=== PATIENT | female | born 1980 | race Caucasian/White ===

== ENCOUNTER → 2018-08-13 17:03 | Outpatient (CLI) | payer MEDICAID, SELFPAY ==
[2018-08-13 18:45] LABS: Amphetamine/Metha Screen,Urine Negative ng/mL (<1000); Barbiturates Screen,Urine Negative ng/mL (<200); Benzodiazepines Screen,Urine Negative ng/mL (<200); Cannabinoid Screen,Urine Negative ng/mL (<50); Cocaine Screen,Urine Negative ng/mL (<300); Methadone Screen,Urine Negative ng/mL (<300); Opiate Screen,Urine Negative ng/mL (<300); Phencyclidine Screen,Urine Negative ng/mL (<25)
== END ==
PROVIDERS: Visit Provider Emergency Medicine
DX: Z79.899 Other long term (current) drug therapy (principal)
CPT/HCPCS: 80305

== ENCOUNTER → 2018-09-01 14:01 | Outpatient (CLI) | payer MEDICAID, SELFPAY ==
[2018-09-01 14:54] LABS: Amphetamine/Metha Screen,Urine Negative ng/mL (<1000); Barbiturates Screen,Urine Negative ng/mL (<200); Benzodiazepines Screen,Urine Positive ng/mL (<200); Cannabinoid Screen,Urine Negative ng/mL (<50); Cocaine Screen,Urine Negative ng/mL (<300); Methadone Screen,Urine Negative ng/mL (<300); Opiate Screen,Urine Positive ng/mL (<300); Phencyclidine Screen,Urine Negative ng/mL (<25)
== END ==
PROVIDERS: Visit Provider Emergency Medicine
DX: Z79.899 Other long term (current) drug therapy (principal)
CPT/HCPCS: 80305

== ENCOUNTER → 2018-09-29 13:55 | Outpatient (CLI) | payer MEDICAID, SELFPAY ==
[2018-09-29 14:31] LABS: Basophils # 0.1 K/mm3 (0-0.2); Basophils % 0.5 % (0.1-2.0); Eosinophils # 0.2 K/mm3 (0.0-0.4); Eosinophils % 1.5 % (0.1-12.0); Hematocrit 41.8 % (37.0-47.0); Hemoglobin 12.9 g/dL (12.2-16.2); Lymphocytes # 2.8 K/mm3 (0.7-4.5); Lymphocytes % 24.9 % (10-50); Mean Corpuscular HGB Conc 30.8 g/dL (31.8-35.4); Mean Corpuscular Hemoglobin 24.6 pg (27.0-31.2); Mean Corpuscular Volume 79.7 fl (81-99); Monocytes # 0.5 K/mm3 (0.1-1.0); Monocytes % 4.7 % (1.7-9.3); Neutrophils # 7.7 K/mm3 (1.8-7.8); Neutrophils % 68.5 % (37.0-80.0); Platelet Count 383 K/mm3 (142-424); Red Blood Count 5.24 M/mm3 (4.20-5.40); Red Cell Distribution Width 15.2 % (11.5-17.5); White Blood Count 11.2 K/mm3 (4.8-10.8)
[2018-09-29 14:41] LABS: Alanine Aminotransferase 112 U/L (12-78); Albumin Level 3.6 gm/dL (3.4-5.0); Albumin/Globulin Ratio 0.9 (1.1-1.8); Alkaline Phosphatase 135 U/L (46-116); Anion Gap 10.2 mEq/L (5-15); Aspartate Amino Transferase 96 U/L (15-37); Bilirubin,Total 0.4 mg/dL (0.2-1.0); Blood Urea Nitrogen 6 mg/dL (7-18); Calcium 9.7 mg/dL (8.5-10.1); Carbon Dioxide 36 mmol/L (21.0-32.0); Chloride 96 mmol/L (98-107); Chol/HDL Ratio 7.2 (1-3.5); Cholesterol 246 mg/dL (140-200); Creatinine,Serum 0.71 mg/dL (0.55-1.02); Estimated Glomerular Filt Rate 93 ml/min (>60); Free T4 (Free Thyroxine) 1.01 ng/dl (0.76-1.46); GFR (African American) 112 ML/MIN (>60); Glucose 132 mg/dL (74-106); HDL Cholesterol 34 mg/dL (29-89); LDL Cholesterol 146 mg/dL (0-130); Potassium 3.2 mmoL/L (3.5-5.1); Sodium 139 mmol/L (136-145); Thyroid Stimulating Hormone 3.26 uIU/ml (0.358-3.740); Total Protein,Serum 7.6 gm/dL (6.4-8.2); Triglycerides 330 mg/dL (30-200); VLDL Cholesterol 66 mg/dL (0-40)
[2018-09-29 15:25] LABS: Amphetamine/Metha Screen,Urine Negative ng/mL (<1000); Barbiturates Screen,Urine Negative ng/mL (<200); Benzodiazepines Screen,Urine Positive ng/mL (<200); Cannabinoid Screen,Urine Negative ng/mL (<50); Cocaine Screen,Urine Negative ng/mL (<300); Methadone Screen,Urine Negative ng/mL (<300); Opiate Screen,Urine Positive ng/mL (<300); Phencyclidine Screen,Urine Negative ng/mL (<25)
[2018-09-30 08:23] LABS: Vitamin B12 427 pg/mL (232-1245)
== END ==
PROVIDERS: Visit Provider Emergency Medicine
DX: Z79.899 Other long term (current) drug therapy (principal); R53.83 Other fatigue
CPT/HCPCS: 80053; 80061; 80305; 82607; 84439; 84443; 85025

== ENCOUNTER → 2018-10-27 09:48 | Outpatient (CLI) | payer MEDICAID, SELFPAY ==
[2018-10-27 10:41] LABS: Hemoglobin A1C 6.8 % (0.0-7.0)
[2018-10-27 11:51] LABS: Anion Gap 12.8 mEq/L (5-15); Blood Urea Nitrogen 7 mg/dL (7-18); Calcium 9.6 mg/dL (8.5-10.1); Carbon Dioxide 30 mmol/L (21.0-32.0); Chloride 101 mmol/L (98-107); Creatinine,Serum 0.68 mg/dL (0.55-1.02); Estimated Glomerular Filt Rate 97 ml/min (>60); GFR (African American) 118 ML/MIN (>60); Glucose 101 mg/dL (74-106); Sodium 141 mmol/L (136-145)
[2018-10-27 11:54] LABS: Potassium 2.8 mmoL/L (3.5-5.1)
[2018-10-28 07:18] LABS: Hep A Ab, IgM Negative (Negative); Hepatitis B Core Antibody IgM Negative (Negative); Hepatitis B Surface Antigen Negative (Negative)
[2018-10-29 09:44] LABS: Hepatitis B Surf Ab Quant <3.1 mIU/mL (Immunity>9.9); Hepatitis C Antibody <0.1 s/co ratio (0.0-0.9)
== END ==
PROVIDERS: PCP Emergency Medicine; Visit Provider Physician Assistant
DX: E87.6 Hypokalemia (principal); R73.9 Hyperglycemia, unspecified; R94.5 Abnormal results of liver function studies
CPT/HCPCS: 36415; 80048; 80074; 83036; 86706

== ENCOUNTER → 2018-10-27 13:39 | Outpatient (CLI) | payer MEDICAID, SELFPAY ==
[2018-10-27 16:52] LABS: Amphetamine/Metha Screen,Urine Negative ng/mL (<1000); Barbiturates Screen,Urine Negative ng/mL (<200); Benzodiazepines Screen,Urine Negative ng/mL (<200); Cannabinoid Screen,Urine Negative ng/mL (<50); Cocaine Screen,Urine Negative ng/mL (<300); Methadone Screen,Urine Negative ng/mL (<300); Opiate Screen,Urine Positive ng/mL (<300); Phencyclidine Screen,Urine Negative ng/mL (<25)
[2018-11-05 17:12] LABS: Alprazolam Negative (Cutoff=100); Benzodiazepines Negative ng/mL (Cutoff=100); Clonazepam Negative (Cutoff=100); Flurazepam Negative (Cutoff=100); Lorazepam Negative (Cutoff=100); Midazolam Negative (Cutoff=100); Oxycodone (GC/MS) 1223 ng/mL (Cutoff=100); Oxymorphone (GC/MS) 2485 ng/mL (Cutoff=100); Temazepam Negative (Cutoff=100); Triazolam Negative (Cutoff=100)
[2018-11-06 22:24] LABS: Opiates Negative (Cutoff=100)
== END ==
PROVIDERS: Visit Provider Emergency Medicine
DX: Z79.891 Long term (current) use of opiate analgesic (principal)
CPT/HCPCS: 80305; 80346; 80361; 80365; G0480

== ENCOUNTER → 2018-11-26 17:36 | Outpatient (CLI) | payer MEDICAID, SELFPAY ==
[2018-11-26 18:13] LABS: Amphetamine/Metha Screen,Urine Negative ng/mL (<1000); Barbiturates Screen,Urine Negative ng/mL (<200); Benzodiazepines Screen,Urine Negative ng/mL (<200); Cannabinoid Screen,Urine Negative ng/mL (<50); Cocaine Screen,Urine Negative ng/mL (<300); Methadone Screen,Urine Negative ng/mL (<300); Opiate Screen,Urine Negative ng/mL (<300); Phencyclidine Screen,Urine Negative ng/mL (<25)
[2018-12-08 16:44] LABS: Gabapentin,Urine 56.6 ug/mL (.)
[2018-12-10 10:02] LABS: Alprazolam Negative (Cutoff=100); Benzodiazepines Negative ng/mL (Cutoff=100); Clonazepam Negative (Cutoff=100); Flurazepam Negative (Cutoff=100); Lorazepam Negative (Cutoff=100); Midazolam Negative (Cutoff=100); Oxycodone (GC/MS) 131 ng/mL (Cutoff=100); Oxymorphone (GC/MS) 199 ng/mL (Cutoff=100); Temazepam Negative (Cutoff=100); Triazolam Negative (Cutoff=100)
[2018-12-10 17:10] LABS: Opiates Negative (Cutoff=100)
== END ==
PROVIDERS: Visit Provider Emergency Medicine
DX: M54.16 Radiculopathy, lumbar region (principal)
CPT/HCPCS: 80305; 80307; 80346; 80361; 80365; G0480

== ENCOUNTER → 2019-01-24 08:28 | Outpatient (CLI) | payer MEDICAID, SELFPAY ==
--- NOTE | 2019-01-24 08:32 | XR_ITS ---
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 The lungs are clear without infiltrates, suspicious nodules, or pleural effusions. No evidence of active tuberculosis. No acute bony abnormalities. IMPRESSION: Negative chest Dictated by: Stalin Warren MD 01/24/2019 09:08 Electronically signed by Stalin Warren MD in [place] 01/24/2019 09:08
[2019-01-24 20:05] LABS: Amphetamine/Metha Screen,Urine Negative ng/mL (<1000); Barbiturates Screen,Urine Negative ng/mL (<200); Benzodiazepines Screen,Urine Negative ng/mL (<200); Cannabinoid Screen,Urine Negative ng/mL (<50); Cocaine Screen,Urine Negative ng/mL (<300); Methadone Screen,Urine Negative ng/mL (<300); Opiate Screen,Urine Negative ng/mL (<300); Phencyclidine Screen,Urine Negative ng/mL (<25)
[2019-01-31 19:08] LABS: Alprazolam Negative (Cutoff=100); Benzodiazepines Negative ng/mL (Cutoff=100); Clonazepam Negative (Cutoff=100); Flurazepam Negative (Cutoff=100); Lorazepam Negative (Cutoff=100); Midazolam Negative (Cutoff=100); Oxycodone Positive (.); Oxymorphone Positive (.); Temazepam Negative (Cutoff=100); Triazolam Negative (Cutoff=100)
[2019-02-01 06:14] LABS: Oxycodone Confirm 198 ng/mL (Cutoff=100); Oxymorphone Confirm 187 ng/mL (Cutoff=100)
== END ==
PROVIDERS: PCP Emergency Medicine; Visit Provider Emergency Medicine
DX: Z79.899 Other long term (current) drug therapy (principal); Z92.89 Personal history of other medical treatment
CPT/HCPCS: 71046; 80305; 80346; 80365

== ENCOUNTER → 2019-01-24 14:07 | Outpatient (CLI) | payer MEDICAID, SELFPAY | PROVIDERS: Visit Provider Emergency Medicine | DX: M54.16 Radiculopathy, lumbar region (principal) | CPT/HCPCS: 80305 ==

== ENCOUNTER → 2019-02-08 08:40 | Outpatient (CLI) | payer MEDICAID, SELFPAY ==
--- NOTE | 2019-02-08 08:42 | MM_ITS ---
PROCEDURE: MM DIG SCREENING MAMM BI W/CAD CLINICAL INDICATION: family hx of breast cancer There is a history of breast cancer patient's mother, maternal aunts and maternal great grandmother. COMPARISON: None, this is baseline examination TECHNIQUE: Standard CC and MLO images were obtained. R2 CAD reviewed. FINDINGS: Mild diffuse fibroglandular densities are seen throughout both breast and the findings of bilateral and symmetrical. There is minimal or borderline ductal hyperplasia bilaterally. There is no suspicious lesion and no suspicious microcalcifications. IMPRESSION: Fibrofatty parenchyma with no suspicious lesions seen BI-RAD Category: 1 Negative FOLLOW-UP: 1YR 1 Year Follow-up (A letter has been sent to the patient regarding results of the study.) Dictated by: Dr. Kane Prince MD 02/11/2019 07:[address] Kane Prince MD in [place] 02/11/2019 07:56
== END ==
PROVIDERS: PCP Emergency Medicine; Visit Provider Emergency Medicine
DX: Z12.31 Encounter for screening mammogram for malignant neoplasm of breast (principal); Z80.3 Family history of malignant neoplasm of breast
CPT/HCPCS: 77067

== ENCOUNTER → 2019-02-10 07:46 | Outpatient (CLI) | payer MEDICAID, SELFPAY ==
--- NOTE | 2019-02-10 07:50 | MR_ITS ---
PROCEDURE: MR LUMBAR SPINE WO CON CLINICAL INDICATION: back pain Low back pain with bilateral leg numbness and tingling right worse than left COMPARISON: No exams were available for comparison TECHNIQUE: Standard multiplanar multiecho sequences are performed without contrast. 3-D MIP and myelographic images are also rendered and reviewed FINDINGS: There is normal alignment. The spinal cord ends at the L1 level. L2-L3: Degenerate disc disease with bulging disc and a small left paracentral disc protrusion with minimal inferior extrusion. There is mild bilateral lateral recess and foraminal narrowing. L3-L4: Bulging disc with broad-based left paracentral and foraminal disc protrusion versus asymmetric disc bulge left with left lateral recess and foraminal narrowing. There is some mild impingement upon the left L4 nerve root. L4-5: Mild degenerative disc disease with mild bulging disc with facet and ligamentum hypertrophy with mild bilateral foraminal narrowing. L5-S1: Minimal bulging disc. IMPRESSION: 1. L2-L3: Degenerative disc disease with bulging disc and a small left paracentral disc protrusion with minimal inferior extrusion. There is mild bilateral lateral recess and foraminal narrowing. 2. L3-L4: Bulging disc with broad-based left paracentral and foraminal disc protrusion versus asymmetric disc bulge left with left lateral recess and foraminal narrowing. There is some mild impingement upon the left L4 nerve root. 3. L4-5: Mild degenerative disc disease with mild bulging disc with facet and ligamentum hypertrophy with mild bilateral foraminal narrowing Dictated by: Stalin Warren MD 02/11/2019 09:10 Electronically signed by Stalin Warren MD in [place] 02/11/2019 09:10
== END ==
PROVIDERS: PCP Emergency Medicine; Visit Provider Emergency Medicine
DX: M54.16 Radiculopathy, lumbar region (principal)
CPT/HCPCS: 72148; 76376

== ENCOUNTER → 2019-02-14 15:12 | Outpatient (CLI) | payer MEDICAID, SELFPAY ==
[2019-02-14 19:13] LABS: Amphetamine/Metha Screen,Urine Negative ng/mL (<1000); Barbiturates Screen,Urine Negative ng/mL (<200); Benzodiazepines Screen,Urine Negative ng/mL (<200); Cannabinoid Screen,Urine Negative ng/mL (<50); Cocaine Screen,Urine Negative ng/mL (<300); Methadone Screen,Urine Negative ng/mL (<300); Opiate Screen,Urine Positive ng/mL (<300); Phencyclidine Screen,Urine Negative ng/mL (<25)
[2019-02-25 06:11] LABS: Alprazolam Negative (Cutoff=100); Benzodiazepines Negative ng/mL (Cutoff=100); Clonazepam Negative (Cutoff=100); Flurazepam Negative (Cutoff=100); Lorazepam Negative (Cutoff=100); Midazolam Negative (Cutoff=100); Oxycodone Positive (.); Oxymorphone Positive (.); Temazepam Negative (Cutoff=100); Triazolam Negative (Cutoff=100)
[2019-02-25 16:29] LABS: Oxycodone Confirm 2630 ng/mL (Cutoff=100); Oxymorphone Confirm 2676 ng/mL (Cutoff=100)
== END ==
PROVIDERS: Visit Provider Emergency Medicine
DX: Z79.899 Other long term (current) drug therapy (principal)
CPT/HCPCS: 80305; 80346; 80365

== ENCOUNTER → 2019-04-11 13:39 | Outpatient (CLI) | payer MEDICAID, SELFPAY ==
[2019-04-11 19:46] LABS: Amphetamine/Metha Screen,Urine Negative ng/mL (<1000); Barbiturates Screen,Urine Negative ng/mL (<200); Benzodiazepines Screen,Urine Negative ng/mL (<200); Cannabinoid Screen,Urine Negative ng/mL (<50); Cocaine Screen,Urine Negative ng/mL (<300); Methadone Screen,Urine Negative ng/mL (<300); Opiate Screen,Urine Negative ng/mL (<300); Phencyclidine Screen,Urine Negative ng/mL (<25)
[2019-04-17 22:14] LABS: Alprazolam Negative (Cutoff=100); Benzodiazepines Negative ng/mL (Cutoff=100); Clonazepam Negative (Cutoff=100); Flurazepam Negative (Cutoff=100); Lorazepam Negative (Cutoff=100); Midazolam Negative (Cutoff=100); Temazepam Negative (Cutoff=100); Triazolam Negative (Cutoff=100)
[2019-04-18 17:09] LABS: Opiates Negative (Cutoff=100)
== END ==
PROVIDERS: Visit Provider Emergency Medicine
DX: Z79.899 Other long term (current) drug therapy (principal)
CPT/HCPCS: 80305; 80346; 80361; 80365; G0480

== ENCOUNTER → 2019-07-13 15:06 | Outpatient (CLI) | payer MEDICAID, SELFPAY ==
[2019-07-13 17:27] LABS: Alanine Aminotransferase 14 U/L (12-78); Albumin Level 4.7 g/dl (3.5-5.0); Albumin/Globulin Ratio 1.7 (1.1-1.8); Alkaline Phosphatase 108 U/L (38-126); Aspartate Amino Transferase 24 U/L (14-36); Blood Urea Nitrogen 10 mg/dl (7-17); Calcium 10.1 mg/dl (8.4-10.2); Carbon Dioxide 30 mmol/L (22.0-30.0); Chloride 103 mmol/L (98-107); Chol/HDL Ratio 5.1 (1-3.5); Cholesterol 178 mg/dl (140-200); Estimated Glomerular Filt Rate 112 ml/min (>60); GFR (African American) 135 ML/MIN (>60); Globulin 2.8 g/dL (1.3-3.2); Glucose 93 mg/dl (74-100); HDL Cholesterol 35 mg/dl (40-60); Sodium 138 mmol/L (136-145); Total Protein,Serum 7.5 g/dl (6.3-8.2); Triglycerides 269 mg/dl (30-150); VLDL Cholesterol 54 mg/dL (0-40)
[2019-07-13 17:28] LABS: Basophils # 0.1 K/mm3 (0-0.2); Basophils % 1.2 % (0.1-2.0); Eosinophils # 0.2 K/mm3 (0.0-0.4); Eosinophils % 1.9 % (0.1-12.0); Hematocrit 39.7 % (37.0-47.0); Hemoglobin 12.4 g/dL (12.2-16.2); Lymphocytes # 3.2 K/mm3 (0.7-4.5); Lymphocytes % 26.2 % (10-50); Mean Corpuscular HGB Conc 31.3 g/dL (31.8-35.4); Mean Corpuscular Hemoglobin 26.2 pg (27.0-31.2); Mean Corpuscular Volume 83.8 fl (81-99); Mean Platelet Volume 9.2 fl (7.4-10.4); Monocytes # 0.5 K/mm3 (0.1-1.0); Monocytes % 4.5 % (1.7-9.3); Neutrophils % 66.3 % (37.0-80.0); Platelet Count 365 K/mm3 (142-424); Red Blood Count 4.74 M/mm3 (4.20-5.40); Red Cell Distribution Width 15.6 % (11.5-17.5); White Blood Count 12.1 K/mm3 (4.8-10.8)
[2019-07-13 17:31] LABS: Anion Gap 9.1 mEq/L (5-15); Bilirubin,Total < 0.1 mg/dl (0.2-1.3); Potassium 4.1 mmoL/L (3.5-5.1)
[2019-07-13 17:37] LABS: Direct LDL Cholesterol 129.46 mg/dL (100-129)
[2019-07-13 17:44] LABS: T4 (Thyroxine) 8.3 ug/dl (5.53-11.0)
[2019-07-13 17:57] LABS: Thyroid Stimulating Hormone 0.87 uIU/mL (0.465-4.68)
[2019-07-13 18:16] LABS: Hemoglobin A1C 6.2 % (4.0-6.0)
[2019-07-14 15:05] LABS: Covid-19 Nasal PCR Sendout Lex NOT DETECTED
--- NOTE | 2019-07-14 15:20 | PC.NURSE ---
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
[2019-07-15 11:20] LABS: Vitamin D 25 Hydroxy 40.7 ng/mL (30.0-100.0)
== END ==
PROVIDERS: Visit Provider Nurse Practitioner Family
DX: R05 Cough (principal); E11.9 Type 2 diabetes mellitus without complications; R30.9 Painful micturition, unspecified
CPT/HCPCS: 80053; 80061; 82043; 82652; 83036; 84436; 84443; 85025; 87086; U0003

== ENCOUNTER → 2019-10-18 14:04 | Outpatient (CLI) | payer MEDICAID, SELFPAY ==
[2019-10-18 14:29] LABS: Chloride 101 mmol/L (98-107); Potassium 4.3 mmoL/L (3.5-5.1); Sodium 140 mmol/L (136-145)
[2019-10-18 14:32] LABS: Anion Gap 13.3 mEq/L (5-15); Blood Urea Nitrogen 9 mg/dl (7-17); Calcium 9.8 mg/dl (8.4-10.2); Carbon Dioxide 30 mmol/L (22.0-30.0); Estimated Glomerular Filt Rate 112 ml/min (>60); GFR (African American) 135 ML/MIN (>60); Glucose 161 mg/dl (74-100)
[2019-10-18 17:38] LABS: Coronavirus 19 IgG Antibody Negative (Negative); Coronavirus 19 IgM Antibody Negative (Negative)
== END ==
PROVIDERS: Visit Provider Emergency Medicine
DX: E87.6 Hypokalemia (principal); Z03.818 Encounter for observation for suspected exposure to other biological agents ruled out
CPT/HCPCS: 80048; 86328

== ENCOUNTER → 2020-04-30 13:51 | Outpatient (CLI) | payer MEDICAID, SELFPAY ==
[2020-04-30 16:23] LABS: Amphetamine/Metha Screen,Urine Negative ng/ml (<1000); Barbiturates Screen,Urine Negative ng/ml (<200)
[2020-04-30 16:24] LABS: Benzodiazepines Screen,Urine Negative ng/ml (<200)
[2020-04-30 16:25] LABS: Cannabinoid Screen,Urine Negative ng/ml (<50)
[2020-04-30 16:26] LABS: Cocaine Screen,Urine Negative ng/ml (<300)
[2020-04-30 16:27] LABS: Methadone Screen,Urine Negative ng/ml (<300); Opiate Screen,Urine Negative ng/ml (<300)
[2020-04-30 16:29] LABS: Phencyclidine Screen,Urine Negative ng/ml (<25)
== END ==
PROVIDERS: Visit Provider Emergency Medicine
DX: Z79.899 Other long term (current) drug therapy (principal)
CPT/HCPCS: 80305

== ENCOUNTER → 2020-06-25 17:28 | Outpatient (CLI) | payer MEDICAID, SELFPAY ==
[2020-06-25 18:11] LABS: Benzodiazepines Screen,Urine Negative ng/ml (<200)
[2020-06-25 18:12] LABS: Amphetamine/Metha Screen,Urine Negative ng/ml (<1000); Barbiturates Screen,Urine Negative ng/ml (<200)
[2020-06-25 18:13] LABS: Cannabinoid Screen,Urine Negative ng/ml (<50)
[2020-06-25 18:14] LABS: Cocaine Screen,Urine Negative ng/ml (<300); Methadone Screen,Urine Negative ng/ml (<300)
[2020-06-25 18:15] LABS: Opiate Screen,Urine Negative ng/ml (<300)
[2020-06-25 18:16] LABS: Phencyclidine Screen,Urine Negative ng/ml (<25)
== END ==
PROVIDERS: Visit Provider Emergency Medicine
DX: Z79.899 Other long term (current) drug therapy (principal)
CPT/HCPCS: 80305

== ENCOUNTER → 2020-08-24 13:22 | Outpatient (CLI) | payer MEDICAID, SELFPAY ==
[2020-08-24 14:37] LABS: Amphetamine/Metha Screen,Urine Negative ng/ml (<1000)
[2020-08-24 14:38] LABS: Barbiturates Screen,Urine Negative ng/ml (<200)
[2020-08-24 14:40] LABS: Benzodiazepines Screen,Urine Negative ng/ml (<200); Cannabinoid Screen,Urine Negative ng/ml (<50)
[2020-08-24 14:41] LABS: Cocaine Screen,Urine Negative ng/ml (<300)
[2020-08-24 14:42] LABS: Methadone Screen,Urine Negative ng/ml (<300); Opiate Screen,Urine Negative ng/ml (<300)
[2020-08-24 14:43] LABS: Phencyclidine Screen,Urine Negative ng/ml (<25)
== END ==
PROVIDERS: Visit Provider Emergency Medicine
DX: M54.16 Radiculopathy, lumbar region (principal)
CPT/HCPCS: 80305

== ENCOUNTER → 2020-10-29 15:06 | Outpatient (CLI) | payer MEDICAID, SELFPAY ==
[2020-10-29 15:28] LABS: Basophils # 0.1 K/mm3 (0-0.2); Basophils % 1.1 % (0.1-2.0); Eosinophils # 0.2 K/mm3 (0.0-0.4); Eosinophils % 2.3 % (0.1-12.0); Hematocrit 42.1 % (37.0-47.0); Hemoglobin 13.3 g/dL (12.2-16.2); Lymphocytes # 2.8 K/mm3 (0.7-4.5); Lymphocytes % 28.1 % (10-50); Mean Corpuscular HGB Conc 31.6 g/dL (31.8-35.4); Mean Corpuscular Hemoglobin 27.5 pg (27.0-31.2); Mean Corpuscular Volume 87.1 fl (81-99); Mean Platelet Volume 10.2 fl (7.4-10.4); Monocytes # 0.6 K/mm3 (0.1-1.0); Monocytes % 5.4 % (1.7-9.3); Neutrophils # 6.3 K/mm3 (1.8-7.8); Platelet Count 328 K/mm3 (142-424); Red Blood Count 4.84 M/mm3 (4.20-5.40); Red Cell Distribution Width 15.3 % (11.5-17.5); White Blood Count 10.1 K/mm3 (4.8-10.8)
[2020-10-29 15:31] LABS: Creatinine,Urine Random 129 mg/dL (Not Estab.)
[2020-10-29 15:33] LABS: Amphetamine/Metha Screen,Urine Negative ng/ml (<1000); Microalbumin/Creatinine Ratio 5.4
[2020-10-29 15:34] LABS: Barbiturates Screen,Urine Negative ng/ml (<200)
[2020-10-29 15:35] LABS: Benzodiazepines Screen,Urine Negative ng/ml (<200)
[2020-10-29 15:36] LABS: Cannabinoid Screen,Urine Negative ng/ml (<50)
[2020-10-29 15:37] LABS: Cocaine Screen,Urine Negative ng/ml (<300); Methadone Screen,Urine Negative ng/ml (<300)
[2020-10-29 15:38] LABS: Opiate Screen,Urine Negative ng/ml (<300); Phencyclidine Screen,Urine Negative ng/ml (<25)
[2020-10-29 15:49] LABS: Hemoglobin A1C 5.4 % (4.0-6.0)
[2020-10-29 16:20] LABS: 25-OH Vitamin D, Total 40.6 ng/mL (30-100); Free T4 (Free Thyroxine) 1.16 ng/dl (0.78-2.19)
[2020-10-29 17:47] LABS: Alanine Aminotransferase 21 U/L (12-78); Albumin/Globulin Ratio 1.4 (1.1-1.8); Alkaline Phosphatase 82 U/L (38-126); Anion Gap 11.1 mEq/L (5-15); Aspartate Amino Transferase 38 U/L (14-36); Bilirubin,Total 0.4 mg/dl (0.2-1.3); Blood Urea Nitrogen 11 mg/dl (7-17); Calcium 9.1 mg/dl (8.4-10.2); Carbon Dioxide 29 mmol/L (22.0-30.0); Chloride 105 mmol/L (98-107); Chol/HDL Ratio 5.7 (1-3.5); Cholesterol 159 mg/dl (140-200); Estimated Glomerular Filt Rate 137 ml/min (>60); GFR (African American) 166 ML/MIN (>60); Globulin 2.8 g/dL (1.3-3.2); Glucose 87 mg/dl (74-100); HDL Cholesterol 28 mg/dl (40-60); Potassium 4.1 mmoL/L (3.5-5.1); Sodium 141 mmol/L (136-145); Total Protein,Serum 6.8 g/dl (6.3-8.2); Triglycerides 178 mg/dl (30-150); VLDL Cholesterol 36 mg/dL (0-40)
[2020-10-29 17:59] LABS: Direct LDL Cholesterol 96.48 mg/dL (100-129)
[2020-10-29 18:18] LABS: Thyroid Stimulating Hormone 1.73 uIU/mL (0.465-4.68)
[2020-10-29 18:39] LABS: Vitamin B12 > 1000 pg/mL (239-931)
[2020-10-31 10:47] LABS: HIV Screen 4th Generation wRfx Non Reactive (Non Reactive)
[2020-10-31 12:42] LABS: Hep A Ab, IgM Negative (Negative); Hepatitis B Core Antibody IgM Negative (Negative); Hepatitis B Surface Antigen Negative (Negative); Hepatitis C Antibody <0.1 s/co ratio (0.0-0.9)
[2020-10-31 22:07] LABS: Neisseria gonorrhoeae, NAA Negative (Negative)
== END ==
PROVIDERS: Visit Provider Emergency Medicine
DX: R30.0 Dysuria (principal); E11.9 Type 2 diabetes mellitus without complications; E55.9 Vitamin D deficiency, unspecified; M54.9 Dorsalgia, unspecified; R94.5 Abnormal results of liver function studies; N76.0 Acute vaginitis; Z79.84 Long term (current) use of oral hypoglycemic drugs
CPT/HCPCS: 80053; 80061; 80074; 80305; 82043; 82306; 82570; 82607; 83036; 84439; 84443; 85025; 86703; 87086; 87210; 87491; 87522; 87591; 87902; G0432

== ENCOUNTER → 2020-12-26 15:04 | Outpatient (CLI) | payer MEDICAID, SELFPAY ==
[2020-12-26 17:13] LABS: Amphetamine/Metha Screen,Urine Negative ng/ml (<1000); Barbiturates Screen,Urine Negative ng/ml (<200)
[2020-12-26 17:15] LABS: Benzodiazepines Screen,Urine Negative ng/ml (<200)
[2020-12-26 17:16] LABS: Cannabinoid Screen,Urine Negative ng/ml (<50)
[2020-12-26 17:17] LABS: Cocaine Screen,Urine Negative ng/ml (<300); Methadone Screen,Urine Negative ng/ml (<300)
[2020-12-26 17:18] LABS: Opiate Screen,Urine Negative ng/ml (<300); Phencyclidine Screen,Urine Negative ng/ml (<25)
== END ==
PROVIDERS: Visit Provider Emergency Medicine
DX: Z79.899 Other long term (current) drug therapy (principal)
CPT/HCPCS: 80305

== ENCOUNTER → 2021-03-22 17:50 | Outpatient (CLI) | payer MEDICAID, SELFPAY ==
[2021-03-22 19:01] LABS: Amphetamine/Metha Screen,Urine Positive ng/ml (<1000); Barbiturates Screen,Urine Negative ng/ml (<200)
[2021-03-22 19:03] LABS: Benzodiazepines Screen,Urine Negative ng/ml (<200)
[2021-03-22 19:04] LABS: Cannabinoid Screen,Urine Negative ng/ml (<50); Cocaine Screen,Urine Negative ng/ml (<300)
[2021-03-22 19:05] LABS: Methadone Screen,Urine Negative ng/ml (<300)
[2021-03-22 19:06] LABS: Opiate Screen,Urine Negative ng/ml (<300); Phencyclidine Screen,Urine Negative ng/ml (<25)
== END ==
PROVIDERS: Visit Provider Family Medicine
DX: Z79.899 Other long term (current) drug therapy (principal)
CPT/HCPCS: 80305

== ENCOUNTER → 2021-04-04 13:05 | Outpatient (CLI) | payer MEDICAID, SELFPAY ==
[2021-04-04 14:07] LABS: Amphetamine/Metha Screen,Urine Positive ng/ml (<1000)
[2021-04-04 14:08] LABS: Barbiturates Screen,Urine Negative ng/ml (<200); Benzodiazepines Screen,Urine Negative ng/ml (<200)
[2021-04-04 14:09] LABS: Cannabinoid Screen,Urine Negative ng/ml (<50)
[2021-04-04 14:10] LABS: Cocaine Screen,Urine Negative ng/ml (<300); Methadone Screen,Urine Negative ng/ml (<300)
[2021-04-04 14:11] LABS: Opiate Screen,Urine Negative ng/ml (<300); Phencyclidine Screen,Urine Negative ng/ml (<25)
== END ==
PROVIDERS: Visit Provider Emergency Medicine
DX: Z79.899 Other long term (current) drug therapy (principal)
CPT/HCPCS: 80305

== ENCOUNTER → 2021-04-16 16:00 | Outpatient (CLI) | payer MEDICAID, SELFPAY ==
[2021-04-16 15:16] LABS: Amphetamine/Metha Screen,Urine Negative ng/ml (<1000)
[2021-04-16 15:17] LABS: Barbiturates Screen,Urine Negative ng/ml (<200); Benzodiazepines Screen,Urine Negative ng/ml (<200)
[2021-04-16 15:18] LABS: Cannabinoid Screen,Urine Positive ng/ml (<50)
[2021-04-16 15:20] LABS: Cocaine Screen,Urine Negative ng/ml (<300)
[2021-04-16 15:21] LABS: Methadone Screen,Urine Negative ng/ml (<300)
[2021-04-16 15:22] LABS: Opiate Screen,Urine Negative ng/ml (<300); Phencyclidine Screen,Urine Negative ng/ml (<25)
== END ==
PROVIDERS: Visit Provider Emergency Medicine
DX: Z79.899 Other long term (current) drug therapy (principal)
CPT/HCPCS: 80305

== ENCOUNTER → 2021-05-31 16:00 | Outpatient (CLI) | payer MEDICAID, SELFPAY ==
[2021-05-31 15:22] LABS: Amphetamine/Metha Screen,Urine Negative ng/ml (<1000); Barbiturates Screen,Urine Negative ng/ml (<200)
[2021-05-31 15:23] LABS: Benzodiazepines Screen,Urine Negative ng/ml (<200)
[2021-05-31 15:24] LABS: Cannabinoid Screen,Urine Positive ng/ml (<50); Cocaine Screen,Urine Negative ng/ml (<300)
[2021-05-31 15:25] LABS: Methadone Screen,Urine Negative ng/ml (<300); Opiate Screen,Urine Negative ng/ml (<300)
[2021-05-31 15:26] LABS: Phencyclidine Screen,Urine Negative ng/ml (<25)
== END ==
PROVIDERS: Visit Provider Emergency Medicine
DX: Z79.899 Other long term (current) drug therapy (principal)
CPT/HCPCS: 80305

== ENCOUNTER → 2021-07-31 17:03 | Outpatient (CLI) | payer MEDICAID, SELFPAY ==
[2021-07-31 17:30] LABS: Amphetamine/Metha Screen,Urine Negative ng/ml (<1000)
[2021-07-31 17:31] LABS: Barbiturates Screen,Urine Negative ng/ml (<200); Benzodiazepines Screen,Urine Negative ng/ml (<200)
[2021-07-31 17:32] LABS: Cannabinoid Screen,Urine Positive ng/ml (<50)
[2021-07-31 17:33] LABS: Cocaine Screen,Urine Negative ng/ml (<300); Methadone Screen,Urine Negative ng/ml (<300)
[2021-07-31 17:34] LABS: Opiate Screen,Urine Negative ng/ml (<300)
[2021-07-31 17:35] LABS: Phencyclidine Screen,Urine Negative ng/ml (<25)
== END ==
PROVIDERS: PCP Nurse Practitioner Family; Visit Provider Nurse Practitioner Family
DX: R39.9 Unspecified symptoms and signs involving the genitourinary system (principal); G89.29 Other chronic pain
CPT/HCPCS: 80305; 87086

== ENCOUNTER → 2021-09-28 12:28 | Outpatient (CLI) | payer MEDICAID, SELFPAY ==
[2021-09-27 17:39] LABS: Basophils # 0.1 K/mm3 (0-0.2); Basophils % 0.7 % (0.1-2.0); Eosinophils # 0.3 K/mm3 (0.0-0.4); Eosinophils % 3.1 % (0.1-12.0); Hematocrit 32.7 % (37.0-47.0); Lymphocytes # 3.7 K/mm3 (0.7-4.5); Lymphocytes % 37.8 % (10-50); Mean Corpuscular HGB Conc 33.6 g/dL (31.8-35.4); Mean Corpuscular Hemoglobin 27.6 pg (27.0-31.2); Mean Corpuscular Volume 82.3 fl (81-99); Mean Platelet Volume 8.1 fl (7.4-10.4); Monocytes # 0.5 K/mm3 (0.1-1.0); Monocytes % 4.7 % (1.7-9.3); Neutrophils # 5.2 K/mm3 (1.8-7.8); Neutrophils % 53.7 % (37.0-80.0); Platelet Count 356 K/mm3 (142-424); Red Blood Count 3.97 M/mm3 (4.20-5.40); Red Cell Distribution Width 14.1 % (11.5-17.5); White Blood Count 9.7 K/mm3 (4.8-10.8)
[2021-09-27 17:50] LABS: Alanine Aminotransferase 16 U/L (12-78); Albumin Level 4.1 g/dl (3.5-5.0); Albumin/Globulin Ratio 1.6 (1.1-1.8); Alkaline Phosphatase 85 U/L (38-126); Anion Gap 12.2 mEq/L (5-15); Aspartate Amino Transferase 22 U/L (14-36); Blood Urea Nitrogen 16 mg/dl (7-17); Calcium 9.8 mg/dl (8.4-10.2); Carbon Dioxide 30 mmol/L (22.0-30.0); Chloride 102 mmol/L (98-107); Chol/HDL Ratio 3.8 (1-3.5); Cholesterol 162 mg/dl (140-200); Estimated Glomerular Filt Rate 111 ml/min (>60); GFR (African American) 134 ML/MIN (>60); Globulin 2.6 g/dL (1.3-3.2); Glucose 96 mg/dl (74-100); HDL Cholesterol 43 mg/dl (40-60); Potassium 4.2 mmoL/L (3.5-5.1); Sodium 140 mmol/L (136-145); Total Protein,Serum 6.7 g/dl (6.3-8.2); Triglycerides 153 mg/dl (30-150); VLDL Cholesterol 31 mg/dL (0-40)
[2021-09-27 18:01] LABS: Direct LDL Cholesterol 89.51 mg/dL (100-129)
[2021-09-27 18:08] LABS: Free T4 (Free Thyroxine) 1.28 ng/dl (0.78-2.19)
[2021-09-27 18:12] LABS: Bilirubin,Total < 0.1 mg/dl (0.2-1.3)
[2021-09-27 18:22] LABS: Thyroid Stimulating Hormone 1.49 uIU/mL (0.465-4.68)
[2021-09-27 18:33] LABS: Hemoglobin A1C 5.6 % (4.0-6.0)
[2021-10-05 18:20] LABS: 1,25 Dihydroxy Vitamin D 58 pg/mL (.); 1,25-Dihydroxy, Vitamin D-2 <10 pg/mL (.); 1,25-Dihydroxy, Vitamin D-3 48 pg/mL (.)
== END ==
PROVIDERS: PCP Emergency Medicine; Visit Provider Emergency Medicine
DX: E11.9 Type 2 diabetes mellitus without complications (principal); R30.0 Dysuria; G89.29 Other chronic pain; B96.29 Other Escherichia coli [E. coli] as the cause of diseases classified elsewhere; E66.9 Obesity, unspecified; Z68.28 Body mass index [BMI] 28.0-28.9, adult
CPT/HCPCS: 80053; 80061; 82652; 83036; 84439; 84443; 85025; 87086; 87088; 87186

== ENCOUNTER → 2022-03-04 06:29 | Outpatient (CLI) | payer MEDICAID, SELFPAY ==
[2022-03-04 19:16] LABS: Basophils # 0.1 K/mm3 (0-0.2); Basophils % 0.7 % (0.1-2.0); Eosinophils # 0.1 K/mm3 (0.0-0.4); Eosinophils % 1.5 % (0.1-12.0); Hematocrit 39.2 % (37.0-47.0); Hemoglobin 12.7 g/dL (12.2-16.2); Lymphocytes # 3.4 K/mm3 (0.7-4.5); Lymphocytes % 38.5 % (10-50); Mean Corpuscular HGB Conc 32.4 g/dL (31.8-35.4); Mean Corpuscular Hemoglobin 26.5 pg (27.0-31.2); Mean Corpuscular Volume 81.9 fl (81-99); Mean Platelet Volume 9.2 fl (7.4-10.4); Monocytes # 0.4 K/mm3 (0.1-1.0); Monocytes % 4.3 % (1.7-9.3); Neutrophils # 4.8 K/mm3 (1.8-7.8); Neutrophils % 55.1 % (37.0-80.0); Platelet Count 368 K/mm3 (142-424); Red Blood Count 4.79 M/mm3 (4.20-5.40); Red Cell Distribution Width 15.9 % (11.5-17.5); White Blood Count 8.7 K/mm3 (4.8-10.8)
[2022-03-04 19:26] LABS: Alanine Aminotransferase 25 U/L (12-78); Albumin/Globulin Ratio 1.5 (1.1-1.8); Alkaline Phosphatase 106 U/L (38-126); Anion Gap 13.6 mEq/L (5-15); Aspartate Amino Transferase 30 U/L (14-36); Bilirubin,Total 0.4 mg/dl (0.2-1.3); Blood Urea Nitrogen 10 mg/dl (7-17); Calcium 10.6 mg/dl (8.4-10.2); Carbon Dioxide 30 mmol/L (22.0-30.0); Chloride 103 mmol/L (98-107); Estimated Glomerular Filt Rate 137 ml/min (>60); GFR (African American) 165 ML/MIN (>60); Globulin 3.3 g/dL (1.3-3.2); Glucose 104 mg/dl (74-100); Potassium 3.6 mmoL/L (3.5-5.1); Sodium 143 mmol/L (136-145); Total Protein,Serum 8.3 g/dl (6.3-8.2)
[2022-03-04 20:01] LABS: Amphetamine/Metha Screen,Urine Negative ng/ml (<1000)
[2022-03-04 20:02] LABS: Barbiturates Screen,Urine Negative ng/ml (<200)
[2022-03-04 20:03] LABS: Benzodiazepines Screen,Urine Negative ng/ml (<200)
[2022-03-04 20:04] LABS: Cannabinoid Screen,Urine Negative ng/ml (<50); Cocaine Screen,Urine Negative ng/ml (<300)
[2022-03-04 20:05] LABS: Methadone Screen,Urine Negative ng/ml (<300)
[2022-03-04 20:06] LABS: Opiate Screen,Urine Negative ng/ml (<300); Phencyclidine Screen,Urine Negative ng/ml (<25)
[2022-03-08 06:04] LABS: ALT (SGPT) P5P 24 IU/L (0-40); Alpha 2-Macroglobulins, Qn 322 mg/dL (110-276); Apolipoprotein A-1 140 mg/dL (116-209); Bilirubin, Total 0.2 mg/dL (0.0-1.2); Fibrosis Score 0.16 (0.00-0.21); GGT 34 IU/L (0-60); Haptoglobin 187 mg/dL (33-278); Necroinflammat Activity Grade A0-No activity (.); Necroinflammat Activity Score 0.09 (0.00-0.17)
[2022-03-10 21:52] LABS: HIV Screen 4th Generation wRfx NON REACTIVE; Hep A Ab, Total NEGATIVE; Hep B Core Ab, Total NEGATIVE; Hep B Surface Ab, Qual NEGATIVE; Hepatitis B Surface Antigen NON REACTIVE; Hepatitis C Antibody <0.1
== END ==
PROVIDERS: PCP Emergency Medicine; Visit Provider Emergency Medicine
DX: E11.9 Type 2 diabetes mellitus without complications (principal); Z79.899 Other long term (current) drug therapy; Z79.84 Long term (current) use of oral hypoglycemic drugs
CPT/HCPCS: 80053; 80305; 81596; 85025; 86703; 86704; 86706; 86708; 87340; 87380; 87522; G0432

== ENCOUNTER → 2022-05-05 09:48 | Outpatient (CLI) | payer MEDICAID, SELFPAY ==
[2022-05-05 15:19] LABS: Benzodiazepines Screen,Urine Negative ng/ml (<200)
[2022-05-05 15:20] LABS: Amphetamine/Metha Screen,Urine Negative ng/ml (<1000); Barbiturates Screen,Urine Negative ng/ml (<200)
[2022-05-05 15:21] LABS: Methadone Screen,Urine Negative ng/ml (<300)
[2022-05-05 15:22] LABS: Cannabinoid Screen,Urine Negative ng/ml (<50); Cocaine Screen,Urine Negative ng/ml (<300)
[2022-05-05 15:23] LABS: Opiate Screen,Urine Negative ng/ml (<300); Phencyclidine Screen,Urine Negative ng/ml (<25)
== END ==
PROVIDERS: PCP Emergency Medicine; Visit Provider Emergency Medicine
DX: Z79.899 Other long term (current) drug therapy (principal)
CPT/HCPCS: 80305

== ENCOUNTER → 2022-06-30 14:21 | Outpatient (CLI) | payer MEDICAID, SELFPAY ==
[2022-06-30 14:41] LABS: Amphetamine/Metha Screen,Urine Negative ng/ml (<1000); Barbiturates Screen,Urine Negative ng/ml (<200)
[2022-06-30 14:42] LABS: Benzodiazepines Screen,Urine Negative ng/ml (<200)
[2022-06-30 14:43] LABS: Cannabinoid Screen,Urine Negative ng/ml (<50); Cocaine Screen,Urine Negative ng/ml (<300)
[2022-06-30 14:44] LABS: Methadone Screen,Urine Negative ng/ml (<300)
[2022-06-30 14:45] LABS: Opiate Screen,Urine Negative ng/ml (<300); Phencyclidine Screen,Urine Negative ng/ml (<25)
== END ==
PROVIDERS: PCP Emergency Medicine; Visit Provider Emergency Medicine
DX: Z79.899 Other long term (current) drug therapy (principal)
CPT/HCPCS: 80305

== ENCOUNTER → 2022-11-24 09:30 | Outpatient (CLI) | payer MEDICAID, SELFPAY ==
[2022-11-24 14:53] LABS: Barbiturates Screen,Urine Negative ng/ml (<200)
[2022-11-24 14:54] LABS: Amphetamine/Metha Screen,Urine Negative ng/ml (<1000); Benzodiazepines Screen,Urine Negative ng/ml (<200)
[2022-11-24 14:55] LABS: Cocaine Screen,Urine Negative ng/ml (<300)
[2022-11-24 14:56] LABS: Cannabinoid Screen,Urine Negative ng/ml (<50); Methadone Screen,Urine Negative ng/ml (<300)
[2022-11-24 14:58] LABS: Opiate Screen,Urine Negative ng/ml (<300); Phencyclidine Screen,Urine Negative ng/ml (<25)
== END ==
PROVIDERS: PCP Emergency Medicine; Visit Provider Emergency Medicine
DX: Z79.899 Other long term (current) drug therapy (principal); N39.0 Urinary tract infection, site not specified
CPT/HCPCS: 80305; 87086; 87088

== ENCOUNTER → 2023-01-27 07:19 | Outpatient (CLI) | payer MEDICAID, SELFPAY ==
[2023-01-27 23:44] LABS: Amphetamine/Metha Screen,Urine Negative ng/ml (<1000)
[2023-01-27 23:45] LABS: Benzodiazepines Screen,Urine Negative ng/ml (<200)
[2023-01-27 23:48] LABS: Methadone Screen,Urine Negative ng/ml (<300); Opiate Screen,Urine Negative ng/ml (<300)
[2023-01-27 23:58] LABS: Barbiturates Screen,Urine Negative ng/ml (<200); Cannabinoid Screen,Urine Negative ng/ml (<50)
[2023-01-27 23:59] LABS: Cocaine Screen,Urine Negative ng/ml (<300)
[2023-01-28 00:02] LABS: Phencyclidine Screen,Urine Negative ng/ml (<25)
--- OUTSIDE RECORDS SUMMARY | 2023-01-28 07:22 | XMS_ITS | Continuity of Care Document ---
Author Name Unknown Organization [facility] Address 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 Name Role Phone Edward Valverde MD Unavailable Unavailable Allergies, Adverse Reactions, Alerts Substance Reaction Status Criticality atorvastatin Active No Information SERTRALINE HCL hives Active No Informatio n codeine hives and problem breathing Active No Information morphine stop breathing Active No Informat ion Medications Medication Instructions Dosage Effective Dates (start - stop) Status Comments Chantix 1 mg tablet take 1 tablet by ora l route 2 times every day with glass of water after meals - Active bupropion HCl SR 150 mg tablet,sustained-releas e take 1 tablet by oral route 2 times every day 150 MG - Active aspirin 81 mg tablet,delayed release take 1 tablet by oral route every day 81 MG - Active Xanax 2 mg tablet take 1 tablet by ora l route every day 2 MG - Active Victoza 2-Wilfred 0.6 mg/0.1 mL (18 mg/3 mL) subcutaneous pen injector inject (1.2MG) by subcutaneous route every day 1.2 MG - Active trazodone 100 mg tablet take 1 tablet by oral route every day at bedtime 100 MG - Active ibuprofen 800 mg tablet take 1 tablet by oral route 3 times every day with food 800 MG - Active
== END ==
PROVIDERS: PCP Emergency Medicine; Visit Provider Emergency Medicine
DX: Z79.899 Other long term (current) drug therapy (principal)
CPT/HCPCS: 80305

== ENCOUNTER 2023-03-31 20:33 | Outpatient (CLI) | payer MEDICAID, SELFPAY ==
[2023-03-31 19:52] LABS: Amphetamine/Metha Screen,Urine Negative ng/ml (<1000)
[2023-03-31 19:53] LABS: Barbiturates Screen,Urine Negative ng/ml (<200); Benzodiazepines Screen,Urine Negative ng/ml (<200)
[2023-03-31 19:54] LABS: Cannabinoid Screen,Urine Negative ng/ml (<50); Cocaine Screen,Urine Negative ng/ml (<300)
[2023-03-31 19:55] LABS: Methadone Screen,Urine Negative ng/ml (<300)
[2023-03-31 19:56] LABS: Opiate Screen,Urine Negative ng/ml (<300); Phencyclidine Screen,Urine Negative ng/ml (<25)
[2023-04-05 13:08] LABS: Alprazolam Negative (Cutoff=100); Benzodiazepines Negative ng/mL (Cutoff=100); Clonazepam Negative (Cutoff=100); Flurazepam Negative (Cutoff=100); Lorazepam Negative (Cutoff=100); Midazolam Negative (Cutoff=100); Opiates Negative (Cutoff=100); Temazepam Negative (Cutoff=100); Triazolam Negative (Cutoff=100)
[2023-04-05 17:23] LABS: Gabapentin,Urine Negative (.)
== END 2023-03-31 23:59 ==
LOC: LAB.DROPOF 20:33
PROVIDERS: PCP Nurse Practitioner Family; Visit Provider Nurse Practitioner Family
DX: G89.29 Other chronic pain (principal); Z79.899 Other long term (current) drug therapy
CPT/HCPCS: 80307; 80346; 80361; 80365; G0480

== ENCOUNTER 2023-06-03 11:24 | Outpatient (CLI) | payer MEDICAID, SELFPAY ==
[2023-06-03 11:35] LABS: Basophils # 0.1 K/mm3 (0-0.2); Basophils % 0.8 % (0.1-2.0); Eosinophils # 0.1 K/mm3 (0.0-0.4); Eosinophils % 1.5 % (0.1-12.0); Hematocrit 39.4 % (37.0-47.0); Hemoglobin 12.8 g/dL (12.2-16.2); Lymphocytes # 2.1 K/mm3 (0.7-4.5); Lymphocytes % 25.7 % (10-50); Mean Corpuscular HGB Conc 32.4 g/dL (31.8-35.4); Mean Corpuscular Hemoglobin 28.5 pg (27.0-31.2); Mean Corpuscular Volume 88.1 fl (81-99); Mean Platelet Volume 9.2 fl (7.4-10.4); Monocytes # 0.4 K/mm3 (0.1-1.0); Monocytes % 4.8 % (1.7-9.3); Neutrophils # 5.5 K/mm3 (1.8-7.8); Neutrophils % 67.2 % (37.0-80.0); Platelet Count 313 K/mm3 (142-424); Red Blood Count 4.47 M/mm3 (4.20-5.40); Red Cell Distribution Width 17.1 % (11.5-17.5); White Blood Count 8.2 K/mm3 (4.8-10.8)
[2023-06-03 12:24] LABS: Chloride 101 mmol/L (98-107); Potassium 3.1 mmoL/L (3.5-5.1); Sodium 138 mmol/L (136-145)
[2023-06-03 12:26] LABS: Blood Urea Nitrogen 9 mg/dl (7-17); Estimated Glomerular Filt Rate 135 ml/min (>60); GFR (African American) 164 ML/MIN (>60)
[2023-06-03 12:27] LABS: Alanine Aminotransferase 42 U/L (12-78); Albumin Level 4.1 g/dl (3.5-5.0); Albumin/Globulin Ratio 1.5 (1.1-1.8); Alkaline Phosphatase 142 U/L (38-126); Anion Gap 10.1 mEq/L (5-15); Aspartate Amino Transferase 45 U/L (14-36); Bilirubin,Total 0.5 mg/dl (0.2-1.3); Calcium 9.6 mg/dl (8.4-10.2); Carbon Dioxide 30 mmol/L (22.0-30.0); Chol/HDL Ratio 3.5 (1-3.5); Cholesterol 177 mg/dl (140-200); Globulin 2.7 g/dL (1.3-3.2); Glucose 107 mg/dl (74-100); HDL Cholesterol 50 mg/dl (40-60); Total Protein,Serum 6.8 g/dl (6.3-8.2); Triglycerides 128 mg/dl (30-150); VLDL Cholesterol 26 mg/dL (0-40)
[2023-06-03 12:38] LABS: Direct LDL Cholesterol 97.42 mg/dL (100-129)
[2023-06-03 12:43] LABS: 25-OH Vitamin D, Total 32.5 ng/mL (30-100)
[2023-06-03 12:58] LABS: Thyroid Stimulating Hormone 1.18 uIU/mL (0.465-4.68)
[2023-06-03 13:17] LABS: Vitamin B12 849 pg/mL (239-931)
[2023-06-03 13:31] LABS: Hemoglobin A1C 5.1 % (4.0-6.0)
== END 2023-06-03 23:59 ==
LOC: LAB.DROPOF 11:25
PROVIDERS: PCP Internal Medicine; Visit Provider Internal Medicine
DX: E53.8 Deficiency of other specified B group vitamins (principal); E78.5 Hyperlipidemia, unspecified; E87.6 Hypokalemia; E11.9 Type 2 diabetes mellitus without complications; Z79.84 Long term (current) use of oral hypoglycemic drugs; Z90.3 Acquired absence of stomach [part of]
CPT/HCPCS: 80053; 80061; 82306; 82607; 83036; 84443; 85025

== ENCOUNTER 2023-06-24 14:34 | Outpatient (CLI) | payer MEDICAID, SELFPAY ==
[2023-06-24 16:03] LABS: Chloride 103 mmol/L (98-107); Potassium 4.1 mmoL/L (3.5-5.1); Sodium 139 mmol/L (136-145)
[2023-06-24 16:06] LABS: Alanine Aminotransferase 111 U/L (12-78); Albumin/Globulin Ratio 1.5 (1.1-1.8); Alkaline Phosphatase 158 U/L (38-126); Anion Gap 9.1 mEq/L (5-15); Aspartate Amino Transferase 252 U/L (14-36); Bilirubin,Total 0.6 mg/dl (0.2-1.3); Blood Urea Nitrogen 16 mg/dl (7-17); Calcium 9.5 mg/dl (8.4-10.2); Carbon Dioxide 31 mmol/L (22.0-30.0); Estimated Glomerular Filt Rate 135 ml/min (>60); GFR (African American) 164 ML/MIN (>60); Globulin 2.7 g/dL (1.3-3.2); Glucose 98 mg/dl (74-100); Total Protein,Serum 6.7 g/dl (6.3-8.2)
[2023-06-26 10:38] LABS: Calcium, Urine 11.9 mg/dL (Not Estab.)
[2023-06-28 07:24] LABS: Miscellaneous Test SCANNED IMAGE
== END 2023-06-24 23:59 | disposition home or self-care (01) ==
LOC: LAB 14:35
PROVIDERS: PCP Internal Medicine; Visit Provider Internal Medicine
DX: I50.9 Heart failure, unspecified (principal); Z79.899 Other long term (current) drug therapy; M54.16 Radiculopathy, lumbar region; E11.42 Type 2 diabetes mellitus with diabetic polyneuropathy
CPT/HCPCS: 36415; 80053; 82340; 84540

== ENCOUNTER 2023-07-29 11:21 | Outpatient (CLI) | payer MEDICAID, SELFPAY ==
[2023-07-29 20:43] LABS: Hemoglobin A1C 4.9 % (4.0-6.0)
[2023-07-31 07:33] LABS: HBsAg Screen Negative (Negative); HCV Ab Non Reactive (Non Reactive); Hep A Ab, IGM Negative (Negative); Hep B Core Ab, IgM Negative (Negative)
[2023-07-31 08:24] LABS: HIV Screen 4th Generation wRfx Non Reactive (Non Reactive)
== END 2023-07-29 23:59 | disposition home or self-care (01) ==
LOC: LAB.DROPOF 07-30 11:21
PROVIDERS: PCP Internal Medicine; Visit Provider Internal Medicine
DX: B34.9 Viral infection, unspecified (principal); F10.90 Alcohol use, unspecified, uncomplicated; E11.42 Type 2 diabetes mellitus with diabetic polyneuropathy; G43.109 Migraine with aura, not intractable, without status migrainosus; Z79.891 Long term (current) use of opiate analgesic; Z72.0 Tobacco use; Z79.899 Other long term (current) drug therapy; Z11.4 Encounter for screening for human immunodeficiency virus [HIV]; Z79.84 Long term (current) use of oral hypoglycemic drugs
CPT/HCPCS: 80074; 83036; 86703; G0432

== ENCOUNTER 2023-09-29 10:30 | Outpatient (CLI) | payer MEDICAID, SELFPAY ==
[2023-09-29 18:37] LABS: Alanine Aminotransferase 23 U/L (12-78); Albumin Level 4.1 g/dl (3.5-5.0); Albumin/Globulin Ratio 1.5 (1.1-1.8); Alkaline Phosphatase 77 U/L (38-126); Anion Gap 8.6 mEq/L (5-15); Aspartate Amino Transferase 28 U/L (14-36); Bilirubin,Total 0.4 mg/dl (0.2-1.3); Blood Urea Nitrogen 16 mg/dl (7-17); Calcium 9.8 mg/dl (8.4-10.2); Carbon Dioxide 32 mmol/L (22.0-30.0); Chloride 106 mmol/L (98-107); Chol/HDL Ratio 3.3 (1-3.5); Cholesterol 197 mg/dl (140-200); Estimated Glomerular Filt Rate 135 ml/min (>60); GFR (African American) 164 ML/MIN (>60); Globulin 2.7 g/dL (1.3-3.2); Glucose 97 mg/dl (74-100); HDL Cholesterol 59 mg/dl (40-60); Potassium 3.6 mmoL/L (3.5-5.1); Sodium 143 mmol/L (136-145); Total Protein,Serum 6.8 g/dl (6.3-8.2); Triglycerides 118 mg/dl (30-150); VLDL Cholesterol 24 mg/dL (0-40)
[2023-09-29 18:48] LABS: Direct LDL Cholesterol 101.19 mg/dL (100-129)
== END 2023-09-29 23:59 | disposition home or self-care (01) ==
LOC: LAB.DROPOF 09-30 10:30
PROVIDERS: PCP Family Medicine; Visit Provider Family Medicine
DX: G89.29 Other chronic pain (principal); E66.3 Overweight; Z68.28 Body mass index [BMI] 28.0-28.9, adult
CPT/HCPCS: 80053; 80061

== ENCOUNTER 2023-11-27 09:22 | Outpatient (CLI) | payer MEDICAID, SELFPAY ==
[2023-11-27 18:33] LABS: Basophils % 0.6 % (0.1-2.0); Eosinophils # 0.1 K/mm3 (0.0-0.4); Eosinophils % 2.1 % (0.1-12.0); Hematocrit 41.6 % (37.0-47.0); Hemoglobin 12.9 g/dL (12.2-16.2); Lymphocytes # 1.9 K/mm3 (0.7-4.5); Lymphocytes % 29.8 % (10-50); Mean Corpuscular HGB Conc 31.1 g/dL (31.8-35.4); Mean Corpuscular Hemoglobin 29.2 pg (27.0-31.2); Mean Corpuscular Volume 93.9 fl (81-99); Monocytes # 0.4 K/mm3 (0.1-1.0); Monocytes % 6.7 % (1.7-9.3); Neutrophils % 60.9 % (37.0-80.0); Platelet Count 273 K/mm3 (142-424); Red Blood Count 4.43 M/mm3 (4.20-5.40); Red Cell Distribution Width 13.9 % (11.5-17.5); White Blood Count 6.5 K/mm3 (4.8-10.8)
[2023-11-27 19:27] LABS: Thyroid Stimulating Hormone 0.79 uIU/mL (0.465-4.68)
== END 2023-11-27 23:59 | disposition home or self-care (01) ==
LOC: LAB.DROPOF 11-30 09:23
PROVIDERS: Internal Medicine; PCP Family Medicine; Visit Provider Family Medicine
DX: I50.9 Heart failure, unspecified (principal); R53.83 Other fatigue; R35.0 Frequency of micturition
CPT/HCPCS: 82803; 84443; 85025; 87086

== ENCOUNTER 2024-02-23 11:16 | Outpatient (CLI) | payer MEDICAID, SELFPAY ==
[2024-02-23 18:51] LABS: Alanine Aminotransferase 20 U/L (12-78); Albumin Level 4.1 g/dl (3.5-5.0); Albumin/Globulin Ratio 1.9 (1.1-1.8); Alkaline Phosphatase 87 U/L (38-126); Anion Gap 10.8 mEq/L (5-15); Aspartate Amino Transferase 32 U/L (14-36); Bilirubin,Total 0.4 mg/dl (0.2-1.3); Blood Urea Nitrogen 22 mg/dl (7-17); Calcium 9.4 mg/dl (8.4-10.2); Carbon Dioxide 27 mmol/L (22.0-30.0); Chloride 107 mmol/L (98-107); Chol/HDL Ratio 2.9 (1-3.5); Cholesterol 130 mg/dl (140-200); Estimated Glomerular Filt Rate 92 ml/min (>60); GFR (African American) 111 ML/MIN (>60); Globulin 2.2 g/dL (1.3-3.2); Glucose 99 mg/dl (74-100); HDL Cholesterol 45 mg/dl (40-60); Potassium 3.8 mmoL/L (3.5-5.1); Sodium 141 mmol/L (136-145); Total Protein,Serum 6.3 g/dl (6.3-8.2); Triglycerides 205 mg/dl (30-150); VLDL Cholesterol 41 mg/dL (0-40)
== END 2024-02-23 23:59 | disposition home or self-care (01) ==
LOC: LAB.DROPOF 02-24 10:49
PROVIDERS: PCP Family Medicine; Visit Provider Family Medicine
DX: E11.8 Type 2 diabetes mellitus with unspecified complications (principal); Z79.85 Long-term (current) use of injectable non-insulin antidiabetic drugs; Z79.84 Long term (current) use of oral hypoglycemic drugs
CPT/HCPCS: 80053; 80061; 83036

== ENCOUNTER 2024-08-26 09:37 | Outpatient (CLI) | payer MEDICAID, SELFPAY ==
--- OUTSIDE RECORDS SUMMARY | 2024-07-21 08:00 | XMS_ITS | Encounter Summary ---
Author Organization [facility] Address [address] [place] [address] Care Team Providers Care Cuffer Name Role Phone Unavailable Primary Care Provider Unavailabl e Reason for Visit * Reason Comments New Patient Encounter Details Date Type Department Care Team (Late st Contact Info) Description 07/21/2024 8:00 AM EDT Office Visit [facility] [address] [place] [id number] Edel Howe, DMD [address] [place] [address] Dental caries, unspecified (Primary Dx); Retained tooth root; Unspecified diseases of pulp and periapical tissues; Encounter for dental examination and cleaning without abnormal findings Social History Tobacco Use Types Packs/Day Years Used Date Smoking Tobacco: Some Days Cigarettes E-Cigarettes Smokeless Tobacco: Never Alcohol Use Standard Drinks/Week Comments Not Currently 3 (1 standard drink = 0.6 oz pur e alcohol) Comments Unknown Sex and Gender Information Value Date Recorded Sex Assigned at Not on file Legal Sex Female 5:43 AM PST Gender Identity Not on file Sexual Orientation Not on file documented as of this encounter Last Filed Vital Signs Vital Sign Reading Time Taken Comments Blood Pressure 124/81 07/21/2024 8:19 AM EDT Pulse 72 07/21/2024 8:19 AM EDT Temperature - - Respiratory Rate - - Oxygen Saturation - - Inhaled Oxygen Concentration - - Weight - - Height - - Body Mass Index - - documented in this encounter Progress Notes * Edel Howe, DMD - 07/21/2024 8:00 AM EDT Procedure Details D0150 - COMPREHENSIVE ORAL EVALUATION - NEW OR ESTABLISHED PATIENT EXAM NOTE Chief Condition: no complaint, wants exam and cleaning Past Medical History: Diagnosis Date Cardiovascular disease Diabetes mellitus (CMS/HCC) History of miscarriage Hypertension No past surgical history on file. Social History Tobacco Use Smoking status: Some Days Types: Cigarettes, E-Cigarettes Smokeless tobacco: Never Substance Use Topics Alcohol use: Not Currently Alcohol/week: 3.0 standard drinks of alcohol Types: 3 Shots of liquor per week No family history on file. Current Outpatient Medications on File Prior to Visit Medication Sig Dispense Refill doxycycline (MONODOX) 100 mg capsule Take 100 mg by mouth 1 (one) time each day. No current facility-administered medications on file prior to visit. Radiographic Interpretation: Associated radiographs for today's visit were reviewed and finding(s) were discussed with the patient. Hard Tissue Exam: Caries exam: Decay noted - see charting and treatment plan and Fractured restorations/teeth Mobility: WNL Perio: Pocket Charting: Full mouth pocket charting was completed Radiographic studies shows generalized moderate horizontal bone loss with no vertical bone loss Perio Diagnosis: Stage II, Grade B Periodontitis, Distribution: Generalized Patient has heavy plaque and calculus build up Patient's oral hygiene is Poor TMJ: TMJ Clicking: TMJ clicking WNL TMJ Pain: TMJ Pain WNL Oral cancer screening: Performed oral cancer screening with head, including face and mouth, neck & joint exam. After thorough examination, the patient was advised of the following: Evidence of decay, restorative treatment recommended and Periodontal scaling recommended. Treatment Plan: Indication for root canal treatment, Indication for decay/caries removal, Indication for tooth removal, CCX Perio Maintenance , and Indications for full coverage. SRP and restorative UL (pt wants to save the tooth) Restore LR and LL Extraction #2 Orders Placed This Encounter Procedures Oral Fitness AMMP-8 manually resulted ORALFITNESSCHECK INITIAL SCREEN COMPREHENSIVE ORAL EVALUATION - NEW OR ESTABLISHED PATIENT [facility] CT CAPTURE AND INTERPRETATION WITH FIELD OF VIEW OF BOTH JAWS; WITH OR WITHOUT CRANIUM BITEWINGS - FOUR RADIOGRAPHIC IMAGES SINGLE X-RAY ADDITIONAL X-RAY ADDITIONAL X-RAY ADDITIONAL X-RAY ADDITIONAL X-RAY ADDITIONAL X-RAY INTRAORAL PHOTO INTRAORAL PHOTO INTRAORAL PHOTO INTRAORAL PHOTO 13 PULPAL DEBRIDEMENT, PRIMARY AND PERMANENT TEETH NC X-RAY ORTHOPEDIC PHYSICIAN ASSISTANT CONSULT NC X-RAY 2 GUIDED TISSUE REGENERATION, EDENTULOUS AREA - RESORBABLE BARRIER, PER SITE 4 DO CEREC INLAY 2 SURF 4 SEAT INLAY NC X-RAY 2 EXTRACTION, ERUPTED TOOTH REQUIRING REMOVAL OF BONE AND/OR SECTIONING OF TOOTH 2 BONE REPLACEMENT GRAFT FOR RIDGE PRESERVATION - PER SITE - MAXILLARY UR PERIODONTAL SCALING AND ROOT PLANING - FOUR OR MORE TEETH PER QUADRANT UR ANTIBACT IRR/QUAD UR JW DECON/QD UL PERIODONTAL SCALING AND ROOT PLANING - FOUR OR MORE TEETH PER QUADRANT UL ANTIBACT IRR/QUAD UL JW DECON/QD LL PERIODONTAL SCALING AND ROOT PLANING - FOUR OR MORE TEETH PER QUADRANT LL ANTIBACT IRR/QUAD LL JW DECON/QD LR PERIODONTAL SCALING AND ROOT PLANING - FOUR OR MORE TEETH PER QUADRANT LR ANTIBACT IRR/QUAD LR JW DECON/QD TOPICAL APPLICATION OF FLUORIDE VARNISH ORAL HYGIENE INSTRUCTIONS INHALATION OF NITROUS OXIDE/ANALGESIA, ANXIOLYSIS 31 ALDAIR CEREC INLAY 2 SURF 31 SEAT INLAY NC X-RAY 30 O CEREC INLAY 1 SURF 30 SEAT INLAY NC X-RAY 29 O CEREC INLAY 1 SURF 29 SEAT INLAY NC X-RAY 28 DOL CEREC INLAY 3+ SURF 28 SEAT INLAY NC X-RAY 15 O CEREC INLAY 1 SURF 15 SEAT INLAY NC X-RAY 26 FF(V) RESIN-BASED COMPOSITE - ONE SURFACE, ANTERIOR 22 FF(V) RESIN-BASED COMPOSITE - ONE SURFACE, ANTERIOR D0367 - [facility] CT CAPTURE AND INTERPRETATION WITH FIELD OF VIEW OF BOTH JAWS; WITH OR WITHOUT CRANIUM CBCT PROCEDURE NOTE CBCT completed for both jaws, with or without cranium-w/interpretation (D0367) CBCT was ordered to assess and assist with diagnosis and treatment planning Findings revealed no abnormal findings. All anatomy and symmetry seen within normal limits. No pathology noted. Alveolar bone levels within normal limits. Normal symmetrical anatomy, no lesions found. Good bone density around all teeth Location is full mouth, both jaws Tooth No(s) All remaining teeth CBCT images/impressions revealed No abnormalities [facility]1999 [facility] Oral Fitness Note Chairside Salivary collection and screening of active matrix metalloproteinases- 8 (aMMP-8). Active matrix metalloproteinase-8 level Date Value Ref Range Status 07/21/2024 17 (A) 0 - 10 ng/mL Final 13 D2740 - CERECFIRED CROWNPOST Cerec Corwin Procedure Note CEREC Crowns Informed consent was explained and obtained for crown(s) preparation for tooth #13 Emax Shade : A3 Corwin is Initial placement. Tooth has decay present on O D with the need of RCT and full coverage yarsani. 40% of tooth structure remaining. Full coverage crown necessary for proper structural integrity and functionality. large decay Radiographs 2D and/or 3D CBCT, clinical photos and patient consultation were used to determine the need for crowns to meet patient's cosmetic needs and same day treatment. Anesthetized with Topical Benzocaine 20% and 1 carpule of 4% articaine with 1:100,000 epi via Infiltration as deemed appropriate anatomical landmark to achieve profound anesthesia. High speed, copious water coolant with high and low evacuation was used to prepare tooth for indirect yarsani. After removal of all said above condition, a full cuspal coverage yarsani is needed to get desired cosmetic result. Cotton roll, retraction cord with hemostatic solution was used to isolate tooth and [employer] CAD/CAM technology was used to scan, design, milled and custom glazed in office. Temporary crown was made by LUIS Romero with luxatemp and cemented with tempbond. [place]: endo and final crown delivery 13 D2950 - CORE BUILDUP, INCLUDING ANY PINS WHEN REQUIRED 13 D3221 - PULPAL DEBRIDEMENT, PRIMARY AND PERMANENT TEETH UR D4999 - JW DECON/QD UL D4999 - JW DECON/QD LL D4999 - JW DECON/QD LR D4999 - JW DECON/QD Bacterial Decontamination Procedure Note Medical History: Medical history reviewed and confirmed there are no contraindications to treatment. All risks, benefits, complications, and alternative treatments, including no treatment, have been discussed and all relative questions have been addressed. Consent has been obtained to perform the procedure. Patient and clinician(s) wore proper eye protection. Scaling and root planing was performed on All 4 quads Topical (Benzocaine 20%) placed. Anesthetic: No Anesthetic required local infiltration. Laser Used: Selin Diode Laser Procedure: Bacterial decontamination Laser Wavelength: Dual with a fiber size of 400 microns, uninitiated tip, contact at a power level of 0.8 martinez Temporal Mode: Auto-calculated Hertz Rate: Auto-calculated Patient was given verbal and written post operative instructions before being dismissed. Patient touse warm salt water rinses as needed. Discussed oral hygiene instructions with patient. Next Visit: Root canal D9110 - PALLIATIVE TREATMENT OF DENTAL PAIN D9230 - INHALATION OF NITROUS OXIDE/ANALGESIA, ANXIOLYSIS Nitrous Procedure Note Nitrous oxide/Oxygen administered at 50% / 50% at 6l/min for 40 minutes. Administered 100% Oxygen at 6l/min for 05 minutes. Patient was released with no complications. D0220 - SINGLE X-RAY D0230 - ADDITIONAL X-RAY D0230 - ADDITIONAL X-RAY D0230 - ADDITIONAL X-RAY D0230 - ADDITIONAL X-RAY D0230 - ADDITIONAL X-RAY D0274 - BITEWINGS - FOUR RADIOGRAPHIC IMAGES D0350 - INTRAORAL PHOTO D0350 - INTRAORAL PHOTO D0350 - INTRAORAL PHOTO D0350 - INTRAORAL PHOTO documented in this encounter Miscellaneous Notes * Dental Procedure Details - Edel Howe DMD - 07/21/2024 8:00 AM EDT EXAM NOTE Chief Condition: no complaint, wants exam and cleaning Past Medical History: Diagnosis Date Cardiovascular disease Diabetes mellitus (CMS/HCC) History of miscarriage Hypertension No past surgical history on file. Social History Tobacco Use Smoking status: Some Days Types: Cigarettes, E-Cigarettes Smokeless tobacco: Never Substance Use Topics Alcohol use: Not Currently Alcohol/week: 3.0 standard drinks of alcohol Types: 3 Shots of liquor per week No family history on file. Current Outpatient Medications on File Prior to Visit Medication Sig Dispense Refill doxycycline (MONODOX) 100 mg capsule Take 100 mg by mouth 1 (one) time each day. No current facility-administered medications on file prior to visit. Radiographic Interpretation: Associated radiographs for today's visit were reviewed and finding(s) were discussed with the patient. Hard Tissue Exam: Caries exam: Decay noted - see charting and treatment plan and Fractured restorations/teeth Mobility: WNL Perio: Pocket Charting: Full mouth pocket charting was completed Radiographic studies shows generalized moderate horizontal bone loss with no vertical bone loss Perio Diagnosis: Stage II, Grade B Periodontitis, Distribution: Generalized Patient has heavy plaque and calculus build up Patient's oral hygiene is Poor TMJ: TMJ Clicking: TMJ clicking WNL TMJ Pain: TMJ Pain WNL Oral cancer screening: Performed oral cancer screening with head, including face and mouth, neck & joint exam. After thorough examination, the patient was advised of the following: Evidence of decay, restorative treatment recommended and Periodontal scaling recommended. Treatment Plan: Indication for root canal treatment, Indication for decay/caries removal, Indication for tooth removal, CCX Perio Maintenance , and Indications for full coverage. SRP and restorative UL (pt wants to save the tooth) Restore LR and LL Extraction #2 Orders Placed This Encounter Procedures Oral Fitness AM-8 manually resulted [facility] COMPREHENSIVE ORAL EVALUATION - NEW OR ESTABLISHED PATIENT [facility] CT CAPTURE AND INTERPRETATION WITH FIELD OF VIEW OF BOTH JAWS; WITH OR WITHOUT CRANIUM BITEWINGS - FOUR RADIOGRAPHIC IMAGES SINGLE X-RAY ADDITIONAL X-RAY ADDITIONAL X-RAY ADDITIONAL X-RAY ADDITIONAL X-RAY ADDITIONAL X-RAY INTRAORAL PHOTO INTRAORAL PHOTO INTRAORAL PHOTO INTRAORAL PHOTO 13 PULPAL DEBRIDEMENT, PRIMARY AND PERMANENT TEETH NC X-RAY ORTHOPEDIC PHYSICIAN ASSISTANT CONSULT NC X-RAY 2 GUIDED TISSUE REGENERATION, EDENTULOUS AREA - RESORBABLE BARRIER, PER SITE 4 DO CEREC INLAY 2 SURF 4 SEAT INLAY NC X-RAY 2 EXTRACTION, ERUPTED TOOTH REQUIRING REMOVAL OF BONE AND/OR SECTIONING OF TOOTH 2 BONE REPLACEMENT GRAFT FOR RIDGE PRESERVATION - PER SITE - MAXILLARY UR PERIODONTAL SCALING AND ROOT PLANING - FOUR OR MORE TEETH PER QUADRANT UR ANTIBACT IRR/QUAD UR JW DECON/QD UL PERIODONTAL SCALING AND ROOT PLANING - FOUR OR MORE TEETH PER QUADRANT UL ANTIBACT IRR/QUAD UL JW DECON/QD LL PERIODONTAL SCALING AND ROOT PLANING - FOUR OR MORE TEETH PER QUADRANT LL ANTIBACT IRR/QUAD LL JW DECON/QD LR PERIODONTAL SCALING AND ROOT PLANING - FOUR OR MORE TEETH PER QUADRANT LR ANTIBACT IRR/QUAD LR JW DECON/QD TOPICAL APPLICATION OF FLUORIDE VARNISH ORAL HYGIENE INSTRUCTIONS INHALATION OF NITROUS OXIDE/ANALGESIA, ANXIOLYSIS 31 ALDAIR CEREC INLAY 2 SURF 31 SEAT INLAY NC X-RAY 30 O CEREC INLAY 1 SURF 30 SEAT INLAY NC X-RAY 29 O CEREC INLAY 1 SURF 29 SEAT INLAY NC X-RAY 28 DOL CEREC INLAY 3+ SURF 28 SEAT INLAY NC X-RAY 15 O CEREC INLAY 1 SURF 15 SEAT INLAY NC X-RAY 26 FF(V) RESIN-BASED COMPOSITE - ONE SURFACE, ANTERIOR 22 FF(V) RESIN-BASED COMPOSITE - ONE SURFACE, ANTERIOR * Dental Procedure Details - Edel Howe DMD - 07/21/2024 8:00 AM EDT CBCT PROCEDURE NOTE CBCT completed for both jaws, with or without cranium-w/interpretation (D0367) CBCT was ordered to assess and assist with diagnosis and treatment planning Findings revealed no abnormal findings. All anatomy and symmetry seen within normal limits. No pathology noted. Alveolar bone levels within normal limits. Normal symmetrical anatomy, no lesions found. Good bone density around all teeth Location is full mouth, both jaws Tooth No(s) All remaining teeth CBCT images/impressions revealed No abnormalities * Dental Procedure Details - Edel Howe DMD - 07/21/2024 8:00 AM EDT Oral Fitness Note Chairside Salivary collection and screening of active matrix metalloproteinases- 8 (aMMP-8). Active matrix metalloproteinase-8 level Date Value Ref Range Status 07/21/2024 17 (A) 0 - 10 ng/mL Final * Dental Procedure Details - Edel Howe DMD - 07/21/2024 8:00 AM EDT Cerec Corwin Procedure Note CEREC Crowns Informed consent was explained and obtained for crown(s) preparation for tooth #13 Emax Shade : A3 Corwin is Initial placement. Tooth has decay present on O D with the need of RCT and full coverage yarsani. 40% of tooth structure remaining. Full coverage crown necessary for proper structural integrity and functionality. large decay Radiographs 2D and/or 3D CBCT, clinical photos and patient consultation were used to determine the need for crowns to meet patient's cosmetic needs and same day treatment. Anesthetized with Topical Benzocaine 20% and 1 carpule of 4% articaine with 1:100,000 epi via Infiltration as deemed appropriate anatomical landmark to achieve profound anesthesia. High speed, copious water coolant with high and low evacuation was used to prepare tooth for indirect yarsani. After removal of all said above condition, a full cuspal coverage yarsani is needed to get desired cosmetic result. Cotton roll, retraction cord with hemostatic solution was used to isolate tooth and [employer] CAD/CAM technology was used to scan, design, milled and custom glazed in office. Temporary crown was made by LUIS Romero with luxatemp and cemented with tempbond. [place]: endo and final crown delivery * Dental Procedure Details - Edel Howe DMD - 07/21/2024 8:00 AM EDT Bacterial Decontamination Procedure Note Medical History: Medical history reviewed and confirmed there are no contraindications to treatment. All risks, benefits, complications, and alternative treatments, including no treatment, have been discussed and all relative questions have been addressed. Consent has been obtained to perform the procedure. Patient and clinician(s) wore proper eye protection. Scaling and root planing was performed on All 4 quads Topical (Benzocaine 20%) placed. Anesthetic: No Anesthetic required local infiltration. Laser Used: Selin Diode Laser Procedure: Bacterial decontamination Laser Wavelength: Dual with a fiber size of 400 microns, uninitiated tip, contact at a power level of 0.8 martinez Temporal Mode: Auto-calculated Hertz Rate: Auto-calculated Patient was given verbal and written post operative instructions before being dismissed. Patient touse warm salt water rinses as needed. Discussed oral hygiene instructions with patient. Next Visit: Root canal * Dental Procedure Details - Edel Howe DMD - 07/21/2024 8:00 AM EDT Nitrous Procedure Note Nitrous oxide/Oxygen administered at 50% / 50% at 6l/min for 40 minutes. Administered 100% Oxygen at 6l/min for 05 minutes. Patient was released with no complications. documented in this encounter Plan of Treatment Upcoming Encounters Date Type Department Care Team (Late st Contact Info) Description 10/21/2024 1:00 PM EDT Office Visit [facility] [address] [place] [address] [facility] [address] [place], [place] [id number] 01/27/2025 1:00 PM EST Office Visit [facility] [address] [place] [address] [facility] [address] [place], [place] [id number] 01/27/2025 1:15 PM EST Office Visit [facility] [address] [place] [address] Edel Howe DMD [address] [place] [address] Scheduled Orders Name Type Priority Associated Diagnoses Order Schedule NC X-RAY Dental Procedures Routine 1 Occur rences starting 07/21/2024 ORTHOPEDIC PHYSICIAN ASSISTANT CONSULT Dental Procedures Routine 1 Occurrences starting 07/21/2024 NC X-RAY Dental Procedures Routine 1 Occur rences starting 07/21/2024 2 2 GUIDED TISSUE REGENERATION, EDENTULOUS AREA - RESORBABLE BARRIER, PER SITE Dental Procedures Routine 1 Occurrences starting 07/21/2024 4 DO 4 DO CEREC INLAY 2 SURF Dental Procedures Routine 1 Occurrences starting 07/21/2024 4 4 SEAT INLAY Dental Procedures Routine 1 O ccurrences starting 07/21/2024 NC X-RAY Dental Procedures Routine 1 Occur rences starting 07/21/2024 2 2 EXTRACTION, ERUPTED TOOTH REQUIRING REMOVAL OF BONE AND/OR SECTIONING OF TOOTH Dental Procedures Routine 1 Occurren leighann starting 07/21/2024 2 2 BONE REPLACEMENT GRAFT FOR RIDGE PRESERVATION - PER SITE - MAXILLARY Dental Procedures Routine 1 Occurrences starting 07/21/2024 31 ALDAIR 31 ALDAIR CEREC INLAY 2 SURF Dental Procedures Routine 1 Occurrences starting 07/21/2024 31 31 SEAT INLAY Dental Procedures Routine 1 Occurrences starting 07/21/2024 NC X-RAY Dental Procedures Routine 1 Occur rences starting 07/21/2024 30 O 30 O CEREC INLAY 1 SURF Dental Procedures Routine 1 Occurrences starting 07/21/2024 30 30 SEAT INLAY Dental Procedures Routine 1 Occurrences starting 07/21/2024 NC X-RAY Dental Procedures Routine 1 Occur rences starting 07/21/2024 29 O 29 O CEREC INLAY 1 SURF Dental Procedures Routine 1 Occurrences starting 07/21/2024 29 29 SEAT INLAY Dental Procedures Routine 1 Occurrences starting 07/21/2024 NC X-RAY Dental Procedures Routine 1 Occur rences starting 07/21/2024 28 DOL 28 DOL CEREC INLAY 3+ SURF Dental Procedures Routine 1 Occurrences starting 07/21/2024 28 28 SEAT INLAY Dental Procedures Routine 1 Occurrences starting 07/21/2024 NC X-RAY Dental Procedures Routine 1 Occur rences starting 07/21/2024 15 O 15 O CEREC INLAY 1 SURF Dental Procedures Routine 1 Occurrences starting 07/21/2024 15 15 SEAT INLAY Dental Procedures Routine 1 Occurrences starting 07/21/2024 NC X-RAY Dental Procedures Routine 1 Occur rences starting 07/21/2024 26 FF(V) 26 FF(V) RESIN-BASED COMPOSITE - ONE SURFACE, ANTERIOR Dental Procedures Routine 1 Occurrences starting 07/21/2024 22 FF(V) 22 FF(V) RESIN-BASED COMPOSITE - ONE SURFACE, ANTERIOR Dental Procedures Routine 1 Occurrences starting 07/21/2024 documented as of this encounter Procedures Procedure Name Priority Date/Time Associated Diagnosis Comments ORAL FITNESS AMMP-8 MANUALLY RESULTED Routine 07/21/2024 8:32 AM EDT ORALFITNESSCHECK INITIAL SCREEN Routine 07/21/2024 8:00 AM EDT LR JW DECON/QD Routine 07/21/2024 8:00 AM EDT LL JW DECON/QD Routine 07/21/2024 8:00 AM EDT UL JW DECON/QD Routine 07/21/2024 8:00 AM EDT UR JW DECON/QD Routine 07/21/2024 8:00 AM EDT 13 CERECFIRED CROWNPOST Routine 07/22/19 8:00 AM EDT Dental caries, unspecified SINGLE X-RAY Routine 07/21/2024 8:00 AM EDT INHALATION OF NITROUS OXIDE/ANALGESIA, ANXIOLYSIS Routine 07/21/2024 8:00 AM EDT PALLIATIVE TREATMENT OF DENTAL PAIN Routine 07/21/2024 8:00 AM EDT 13 PULPAL DEBRIDEMENT, PRIMARY AND PERMANENT TEETH Routine 07/21/2024 8:00 AM EDT Dental caries, unspecified 13 CORE BUILDUP, INCLUDING ANY PINS WHEN REQUIRED Routine 07/21/2024 8:00 AM EDT [address] [address] CAPTURE AND INTERPRETATION WITH FIELD OF VIEW OF BOTH JAWS; WITH OR WITHOUT CRANIUM Routine 07/21/2024 8:00 AM EDT INTRAORAL PHOTO Routine 07/21/2024 8:00 AM EDT INTRAORAL PHOTO Routine 07/21/2024 8:00 AM EDT INTRAORAL PHOTO Routine 07/21/2024 8:00 AM EDT INTRAORAL PHOTO Routine 07/21/2024 8:00 AM EDT BITEWINGS - FOUR RADIOGRAPHIC IMAGES Routine 07/21/2024 8:00 AM EDT ADDITIONAL X-RAY Routine 07/21/2024 8:00 AM EDT ADDITIONAL X-RAY Routine 07/21/2024 8:00 AM EDT ADDITIONAL X-RAY Routine 07/21/2024 8:00 AM EDT ADDITIONAL X-RAY Routine 07/21/2024 8:00 AM EDT ADDITIONAL X-RAY Routine 07/21/2024 8:00 AM EDT COMPREHENSIVE ORAL EVALUATION - NEW OR ESTABLISHED PATIENT Routine 07/21/2024 8:00 AM EDT Encounter for dental examination and cleaning without abnormal findings documented in this encounter Results * (ABNORMAL) Oral Fitness AMMP-8 manually resulted (07/21/2024 8:32 AM EDT) Active matrix metalloproteina se-8 level 17(A) 0 - 10 ng/mL Saliva Salivary gland structure / Unknown 07/21/2024 8:32 AM EDT Edel Howe DMD PDS [facility] Fin al Result documented in this encounter Visit Diagnoses Diagnosis Dental caries, unspecified- Primary Retained tooth root Retained dental root Unspecified diseases of pulp and periapical tissues Encounter for dental examination and cleaning without abnormal findings documented in this encounter
--- OUTSIDE RECORDS SUMMARY | 2024-07-21 09:30 | XMS_ITS | Encounter Summary ---
Author Organization [facility] Health Address [address] [place] [address] Care Team Providers Care Sap Project Manager Name Role Phone Unavailable Primary Care Provider Unavailabl e Encounter Details Date Type Department Care Team (Late st Contact Info) Description 07/21/2024 9:30 AM EDT Office Visit [facility] [address] [place] [address] MagdamaeganOni ni, [facility] [address] [place] [address] Social History Tobacco Use Types Packs/Day Years [...] on file documented as of this encounter Progress Notes * Oni Ga, [facility] - 07/21/2024 9:30 AM EDT Procedure Details UR D4341 - PERIODONTAL SCALING AND ROOT PLANING - FOUR OR MORE TEETH PER QUADRANT UL D4341 - PERIODONTAL SCALING AND ROOT PLANING - FOUR OR MORE TEETH PER QUADRANT LL D4341 - PERIODONTAL SCALING AND ROOT PLANING - FOUR OR MORE TEETH PER QUADRANT LR D4341 - PERIODONTAL SCALING AND ROOT PLANING - FOUR OR MORE TEETH PER QUADRANT SCALING AND ROOT PLANING PROCEDURE Medical History: Medical history reviewed and confirmed with no contraindications to treatment. Patient reports last dental cleaning 6 months to 1 year. All risks, benefits, complications, and alternative treatments, including no treatment, have been discussed and all relative questions have been addressed. Consent has been obtained to perform the procedure. Patient and clinician(s) wore proper eye protection. A complete periodontal assessment was completed on 07/21/24. Georgie Gant presents with: Stage II: Moderate Periodontitis Staging and grading established utilizing AAP Guidelines set forth by [employer], identified by the worst site of destruction in the mouth: UR, tooth 2, tooth 3, tooth 4, and tooth 5, UL, tooth 10, tooth 11, tooth 12, and tooth 13, LR, tooth 27, tooth 28, tooth 29, and tooth 30, and LL, tooth 19, tooth 20, tooth 21, and tooth 22. Tissue assessment revealed generalized inflammation and Generalized light bleeding on probing with Generalized light plaque and biofilm adhesion. Periodontal charting assessment identified generalized probing depths at <=5mm with generalized areas of recession resulting in 3-4mm of total clinical attachment loss. Radiological evidenceshows no known and/or suspected tooth loss due to periodontitis at this time. Radiographs reveal evidence of approximately 15-30% generalized, horizontal bone loss from the coronal third. Grade B - Moderate rate of progression Georgie Gant presents with evidence of bone destruction and/or clinical attachment loss (SUSHIL). Current oral-systemic condition(s) indicate moderate disease progression. Direct and/or Indirect factors contributing to progression rate: Estimated <2mm loss over the past 5 years with risk of additional loss in future Scaling and Root Planing: Prior to the start of procedure, patient was able to ask and address any questions and/or concerns regarding periodontal diagnosis, procedure, and prognosis. 20% benzocaine topical anesthetic placed followed with anesthetic No Anesthetic required 4 quadrants of scaling and root planing performed. Each quadrant of scaling and root planing was completed in approximately 60 minutes using both hand and ultrasonic instrumentation on all 4 quadrants. Root planing completed noting overall Fair oral hygiene. Supragingival Calc: Generalized moderate Subgingival Calc: Generalized Light Achieved sound root surface debridement and disruption of attached plaque biofilm. Patient responded well to initial therapy. Selective coronal polishing completed . Reviewed oral hygiene instructions and post operative care instructions with patient. Discussed adjunctive services that may aide in the co-management of disease: Floss, Oral-B Electric TB, and Oral-B Water Chemical Educator Irrigation: Irrigated with 0.12% Chlorhexidine Gluconate Fluoride: Fluoride applied and instructions given Next Hygiene Visit: 3 month continuing care UR D4921 - ANTIBACT IRR/QUAD UL D4921 - ANTIBACT IRR/QUAD LL D4921 - ANTIBACT IRR/QUAD LR D4921 - ANTIBACT IRR/QUAD D1206 - TOPICAL APPLICATION OF FLUORIDE VARNISH D1330 - ORAL HYGIENE INSTRUCTIONS documented in this encounter Miscellaneous Notes * Dental Procedure Details - Oni Ga [facility] - 07/21/2024 9:30 AM EDT SCALING AND ROOT PLANING PROCEDURE Medical History: Medical history reviewed and confirmed with no contraindications to treatment. Patient reports last dental cleaning 6 months to 1 year. All risks, benefits, complications, and alternative treatments, including no treatment, have been discussed and all relative questions have been addressed. Consent has been obtained to perform the procedure. Patient and clinician(s) wore proper eye protection. A complete periodontal assessment was completed on 07/21/24. Georgie Gant presents with: Stage II: Moderate Periodontitis Staging and grading established utilizing AAP Guidelines set forth by [employer], identified by the worst site of destruction in the mouth: UR, tooth 2, tooth 3, tooth 4, and tooth 5, UL, tooth 10, tooth 11, tooth 12, and tooth 13, LR, tooth 27, tooth 28, tooth 29, and tooth 30, and LL, tooth 19, tooth 20, tooth 21, and tooth 22. Tissue assessment revealed generalized inflammation and Generalized light bleeding on probing with Generalized light plaque and biofilm adhesion. Periodontal charting assessment identified generalized probing depths at <=5mm with generalized areas of recession resulting in 3-4mm of total clinical attachment loss. Radiological evidenceshows no known and/or suspected tooth loss due to periodontitis at this time. Radiographs reveal evidence of approximately 15-30% generalized, horizontal bone loss from the coronal third. Grade B - Moderate rate of progression Georgie Gant presents with evidence of bone destruction and/or clinical attachment loss (SUSHIL). Current oral-systemic condition(s) indicate moderate disease progression. Direct and/or Indirect factors contributing to progression rate: Estimated <2mm loss over the past 5 years with risk of additional loss in future Scaling and Root Planing: Prior to the start of procedure, patient was able to ask and address any questions and/or concerns regarding periodontal diagnosis, procedure, and prognosis. 20% benzocaine topical anesthetic placed followed with anesthetic No Anesthetic required 4 quadrants of scaling and root planing performed. Each quadrant of scaling and root planing was completed in approximately 60 minutes using both hand and ultrasonic instrumentation on all 4 quadrants. Root planing completed noting overall Fair oral hygiene. Supragingival Calc: Generalized moderate Subgingival Calc: Generalized Light Achieved sound root surface debridement and disruption of attached plaque biofilm. Patient responded well to initial therapy. Selective coronal polishing completed . Reviewed oral hygiene instructions and post operative care instructions with patient. Discussed adjunctive services that may aide in the co-management of disease: Floss, Oral-B Electric TB, and Oral-B Water Chemical Educator Irrigation: Irrigated with 0.12% Chlorhexidine Gluconate Fluoride: Fluoride applied and instructions given Next Hygiene Visit: 3 month continuing care documented in this encounter Plan of Treatment Upcoming Encounters Date Type Department Care Team (Late st Contact Info) Description 10/21/2024 1:00 PM EDT Office Visit [facility] [address] [place] [address] [place] [address] 01/27/2025 1:00 PM EST Office Visit [facility] [address] [place] [address] [place] [address] 01/27/2025 1:15 PM EST Office Visit [facility] [address] [place] [address] Edel Howe, DMD [address] [place] [address] documented as of this encounter Procedures Procedure Name Priority Date/Time Associated Diagnosis Comments LR ANTIBACT IRR/QUAD Routine 07/21/2024 9:30 AM EDT LL ANTIBACT IRR/QUAD Routine 07/21/2024 9:30 AM EDT UL ANTIBACT IRR/QUAD Routine 07/21/2024 9:30 AM EDT UR ANTIBACT IRR/QUAD Routine 07/21/2024 9:30 AM EDT LR PERIODONTAL SCALING AND ROOT PLANING - FOUR OR MORE TEETH PER QUADRANT Routine 07/21/2024 9:30 AM EDT LL PERIODONTAL SCALING AND ROOT PLANING - FOUR OR MORE TEETH PER QUADRANT Routine 07/21/2024 9:30 AM EDT UL PERIODONTAL SCALING AND ROOT PLANING - FOUR OR MORE TEETH PER QUADRANT Routine 07/21/2024 9:30 AM EDT UR PERIODONTAL SCALING AND ROOT PLANING - FOUR OR MORE TEETH PER QUADRANT Routine 07/21/2024 9:30 AM EDT ORAL HYGIENE INSTRUCTIONS Routine 2024 9:30 AM EDT TOPICAL APPLICATION OF FLUORIDE VARNISH Routine 07/21/2024 9:30 AM EDT documented in this encounter Visit Diagnoses Not on filedocumented in this encounter
--- OUTSIDE RECORDS SUMMARY | 2024-07-29 08:00 | XMS_ITS | Encounter Summary ---
Author Organization [facility] Health Address [address] [place] [address] Care Team Providers Care Proposal Writer Name Role Phone Unavailable Primary Care Provider Unavailabl e Reason for Visit * Consult and Treat (Routine) - Authorized Specialty Diagnoses / Procedures Referred By Contac t Referred To Contact Endodontics Nick Pavon DMD [address] [place] [address] Phone: tel: fax: Referral ID Status Reason Start Date Expiration Date Visits Requested Visits Authorized [id number] Authorized Specialty Services Required 04/27/2024 10/24/2024 1 1 Encounter Details Date Type Department Care Team (Late st Contact Info) Description 07/29/2024 8:00 AM EDT Office Visit [facility] [address] [place] [id number] Ciro Nesbitt DMD [address] [address] Social History Tobacco Use Types Packs/Day Years [...] Sign Reading Time Taken Comments Blood Pressure 138/82 07/29/2024 8:03 AM EDT Pulse 69 07/29/2024 8:03 AM EDT Temperature - - Respiratory Rate - - Oxygen Saturation - - Inhaled Oxygen Concentration - - Weight - - Height - - Body Mass Index - - documented in this encounter Progress Notes * Ciro Nesbitt, DMD - 07/29/2024 8:00 AM EDT Procedure Details 13 D0460 - PULP VITALITY TESTS 13 D3320 - ENDODONTIC THERAPY, PREMOLAR TOOTH (EXCLUDING FINAL CONGREGATIONAL) 13 D3331 - TREATMENT OF ROOT CANAL OBSTRUCTION; NON-SURGICAL ACCESS D9310 - CLINICAL RESEARCHER CONSULT ..Root Canal Treatment Note Prognosis: Good All risks, benefits, complications and alternatives including no treatment have been discussed and all relative questions have been addressed. Consent has been obtained to perform the root canal treatment. Topical (Benzocaine 20%) placed. Administered 1 carpule 4% Septocaine w/ 1:100,000 epi and .25 carpule 2% Lidocaine w/ 1:100,000 epi. Removed temporary crown. Placed rubber dam. Excavated decay. Accessed canals. Enhanced Magnification and lighting used while performing root canal treatment. Negotiated obstructed extreme curvage and unusually shaped canal with difficult access. Root canal treatment required an extended amount of chair time to complete the procedure. Counterbalance used to minimize discomfort to patient's TMJ. Electronic apex subway conductor used to determine canal lengths. Rotary instrumented canals using copious amount of 6% sodium hypochlorite and 17%EDTA. canal - 18mm 40/.04 Obturated canals with nasim percha and BC sealer. Sealed orifices with BC linerr Blue Placed sterile sponge and cavit. Patient transferred to general dentist for permanent anabaptism. Written and verbal post op instructions given. Patient understands that the tooth will need to be monitored for healing. Patient was given the option to take a break during the procedure. Patient wasinformed to return back to general dentist within 30 days for permanent anabaptism upon completionof root canal treatment. Patient was informed that tooth may need extraction if not permanently restored. Patient referred back to general dentist. Completion of root canal treatment. Patient was informed that tooth may need extraction if not permanently restored. Patient referred back to general dentist. Avoid chewing until numbness has worn off. Some sensitivity to hot, cold and pressure is normal. Your mouth and gums may be more sore or tender for up to a week. Over the counter ibuprofen and Tylenol is recommended following all labels and directions. Rinse mouth with warm salt water and notify the office if you notice pain on chewing or food impaction. Next Visit: PRN 13 D3911 - INTRAORIFICE BARRIER D0220 - NC X-RAY documented in this encounter Miscellaneous Notes * Dental Procedure Details - Ciro Nesbitt DMD - 07/29/2024 8:00 AM EDT ..Root Canal Treatment Note Prognosis: Good All risks, benefits, complications and alternatives including no treatment have been discussed and all relative questions have been addressed. Consent has been obtained to perform the root canal treatment. Topical (Benzocaine 20%) placed. Administered 1 carpule 4% Septocaine w/ 1:100,000 epi and .25 carpule 2% Lidocaine w/ 1:100,000 epi. Removed temporary crown. Placed rubber dam. Excavated decay. Accessed canals. Enhanced Magnification and lighting used while performing root canal treatment. Negotiated obstructed extreme curvage and unusually shaped canal with difficult access. Root canal treatment required an extended amount of chair time to complete the procedure. Counterbalance used to minimize discomfort to patient's TMJ. Electronic apex subway conductor used to determine canal lengths. Rotary instrumented canals using copious amount of 6% sodium hypochlorite and 17%EDTA. canal - 18mm 40/.04 Obturated canals with nasim percha and BC sealer. Sealed orifices with BC linerr Blue Placed sterile sponge and cavit. Patient transferred to general dentist for permanent anabaptism. Written and verbal post op instructions given. Patient understands that the tooth will need to be monitored for healing. Patient was given the option to take a break during the procedure. Patient wasinformed to return back to general dentist within 30 days for permanent anabaptism upon completionof root canal treatment. Patient was informed that tooth may need extraction if not permanently restored. Patient referred back to general dentist. Completion of root canal treatment. Patient was informed that tooth may need extraction if not permanently restored. Patient referred back to general dentist. Avoid chewing until numbness has worn off. Some sensitivity to hot, cold and pressure is normal. Your mouth and gums may be more sore or tender for up to a week. Over the counter ibuprofen and Tylenol is recommended following all labels and directions. Rinse mouth with warm salt water and notify the office if you notice pain on chewing or food impaction. Next Visit: PRN documented in this encounter Plan of Treatment Upcoming Encounters Date Type Department Care Team (Late st Contact Info) Description 10/21/2024 1:00 PM EDT Office Visit [facility] [address] [place] [address] [facility] [place] [place], [facility] [address] [place] [address] 01/27/2025 1:00 PM EST Office Visit [facility] [address] [place] [address] [facility] [place] [place], [facility] [address] [place] [address] 01/27/2025 1:15 PM EST Office Visit [facility] [address] [place] [address] Edel Howe, DASHA [address] [place] [address] documented as of this encounter Procedures Procedure Name Priority Date/Time Associated Diagnosis Comments 13 INTRAORIFICE BARRIER Routine 07/30/19 8:00 AM EDT CLINICAL RESEARCHER CONSULT Routine 07/29/2024 8 :00 AM EDT NC X-RAY Routine 07/29/2024 8:00 AM EDT 13 TREATMENT OF ROOT CANAL OBSTRUCTION; NON-SURGICAL ACCESS Routine 07/29/2024 8:00 AM EDT 13 ENDODONTIC THERAPY, PREMOLAR TOOTH (EXCLUDING FINAL CONGREGATIONAL) Routine 07/29/2024 8:00 AM EDT 13 PULP VITALITY TESTS Routine 8:00 AM EDT documented in this encounter Visit Diagnoses Not on filedocumented in this encounter
--- OUTSIDE RECORDS SUMMARY | 2024-07-29 09:00 | XMS_ITS | Encounter Summary ---
Author Organization [facility] Health Address [address] [place] [address] Care Team Providers Care Supervisor Of Communications Name Role Phone Unavailable Primary Care Provider Unavailabl e Encounter Details Date Type Department Care Team (Late st Contact Info) Description 07/29/2024 9:00 AM EDT Office Visit [facility] [address] [place] [address] Nick Pavon, DASHA [address] [place] [address] Social History Tobacco Use Types [...] as of this encounter Progress Notes * Nick Pavon DMD - 07/29/2024 9:00 AM EDT Procedure Details 13 D9999 - CEMENT CROWN CROWN DELIVERY [place](s) permanently cemented with RelyX Ultimate; etched with HF acid 30 seconds and monobond inside. X-ray taken. Post-seat x-ray taken to verify complete seating of taoist and complete cement removal Anesthetic: No anesthetic was required Patient reported no trouble with the temporary documented in this encounter Miscellaneous Notes * Dental Procedure Details - Nick Pavon DMD - 07/29/2024 9:00 AM EDT CROWN DELIVERY [place](s) permanently cemented with RelyX Ultimate; etched with HF acid 30 seconds and monobond inside. X-ray taken. Post-seat x-ray taken to verify complete seating of taoist and complete cement removal Anesthetic: No anesthetic was required Patient reported no trouble with the temporary documented in this encounter Plan of Treatment Upcoming Encounters Date Type Department Care Team (Late st Contact Info) Description 10/21/2024 1:00 PM EDT Office Visit [facility] [address] [place] [address] [facility] [place], [facility] [address] [place] [address] 01/27/2025 1:00 PM EST Office Visit [facility] [address] [place] [address] [facility] [address] [place] [address] 01/27/2025 1:15 PM EST Office Visit [facility] [address] [place] [address] Edel Howe DMD [address] [place] [address] documented as of this encounter Procedures Procedure Name Priority Date/Time Associated Diagnosis Comments 13 CEMENT CROWN Routine 07/29/2024 9:00 AM EDT documented in this encounter Visit Diagnoses Not on filedocumented in this encounter
[2024-08-26 18:26] LABS: Hemoglobin A1C 6.2 % (4.0-6.0)
[2024-08-26 19:35] LABS: Alanine Aminotransferase 14 U/L (12-78); Albumin Level 4.3 g/dl (3.5-5.0); Albumin/Globulin Ratio 1.7 (1.1-1.8); Alkaline Phosphatase 76 U/L (38-126); Anion Gap 12.2 mEq/L (5-15); Aspartate Amino Transferase 23 U/L (14-36); Bilirubin,Total 0.4 mg/dl (0.2-1.3); Blood Urea Nitrogen 14 mg/dl (7-17); Calcium 9.9 mg/dl (8.4-10.2); Carbon Dioxide 29 mmol/L (22.0-30.0); Chloride 102 mmol/L (98-107); Chol/HDL Ratio 2.4 (1-3.5); Cholesterol 133 mg/dl (140-200); Estimated Glomerular Filt Rate 91 ml/min (>60); GFR (African American) 111 ML/MIN (>60); Globulin 2.6 g/dL (1.3-3.2); Glucose 82 mg/dl (74-100); HDL Cholesterol 55 mg/dl (40-60); Potassium 4.2 mmoL/L (3.5-5.1); Sodium 139 mmol/L (136-145); Total Protein,Serum 6.9 g/dl (6.3-8.2); Triglycerides 82 mg/dl (30-150); VLDL Cholesterol 16 mg/dL (0-40)
[2024-08-26 19:54] LABS: Direct LDL Cholesterol 54.35 mg/dL (100-129)
[2024-08-26 20:07] LABS: Thyroid Stimulating Hormone 0.75 uIU/mL (0.465-4.68)
[2024-08-26 20:27] LABS: Vitamin B12 908 pg/mL (239-931)
--- OUTSIDE RECORDS SUMMARY | 2024-08-29 09:54 | XMS_ITS | Continuity of Care Document ---
Author Organization [place] [facility] Address [address] [address] Care Team Providers Care Application Packaging Specialist Name Role Phone KALYN HENRY Primary Care Provider Unavailabl e Assessment Encounter Date Assessment Date Assessment LastModified by Organization Details LastModified Time 07/26/2024 07/26/2024 This is a 44-year-old female with left knee patellar instability with evidence of medial patellofemoral ligament injury on MRI. The patient has not done therapy on her knee previously. She be plugged in physical therapy for VMO strengthening and hamstring stretching. She would be fitted with a patellar stabilization brace. The patient apparently has a [employer] exclusive network insurance and therefore any operative intervention will have to be done at a [facility] facility. I do not go to [facility] facilities and therefore I will refer the patient to my partner who does go to daycare facilities should she need further surgical intervention. [email or web address] Not available 07/26/2024 14:06:49 Plan of Treatment Reminders Order Date Submit Date Provider Last Modified By Organization Details Last Modified Time Details Appointments VA-PRE OP 2024 01:30P M MAR VALENZUELA Not available Not available Not available SURGERY 2024 12:00A M Ole Serrano MD Not available Not available Not available PO-POST OP 2024 02:00P M MAR VALENZUELA Not available Not available Not available PO-POST OP 2024 01:30P M Ole Serrano MD Not available Not available Not available Lab None recorded. Referral physical therapist referral - Total # of Visits: 18 2024 025 [email or web address] [facility] [address], [place], [address], 07/27/2024 09:16:32 Procedures None recorded. Surgeries None recorded. Imaging None recorded. Medication Orders None recorded. Patient TargetsNo targets recorded. Patient InstructionsNo instructions recorded. Reason for Referral Physical Therapist Referral for Instability of left patellofemoral joint Total # of Visits: 18 Referring Physician: Amina Knowles Jr, Orthopedic Surgery Shoulder and Elbow, Encounter Date: 07/26/2024 Results Created Date Observation Date Name Description Value Unit Range Abnormal Flag Note LastModifiedBy Organization Detail LastModifiedTime 07/23/1907/22/2024 XR, knee, 3 view LEFT Electr onical ly signed by AMINA KNOWLES JR INTERFACE [facility] [address], [place], [address], 07/22/2024 10:08:16 07/27/19 25 07/23/2024 MRI knee wo cont lt Patien t: LAUREN GANT : 1980 Gender : F 6131 Accoun t: [id number] Comple clifton Date: 2024 Access ion #: [id number] Exam Date/T yelena: 2024 11:37 MRI Knee wo Cont LT INDICA TION: Prior knee surger y. Knee pain COMPAR LISSETH: No compar lisseth TECHNI QUE: MRI knee withou t contra st. Multip lanar, multis equenc e images obtain ed. FINDIN GS: Suscep tibili ty artifa ct in the medial soft tissue s presum ably postsu rgical . Modera te sized Taveras' s cyst. There is normal marrow signal withou t eviden ce of marrow edema/ stress reacti on or focal pathol ogic marrow replac ement. There is no eviden ce of medial menisc al tear. Tear or postop erativ e change /menis cectom y of the latera l menisc us. Tricom partme nt degene rative change s. The anteri or crucia te ligame nt is intact withou t tear. The checker and packer ior crucia te ligame nt is intact withou t disrup tion. The medial collat eral ligame nt is intact withou t eviden ce of sprain or tear. There is no eviden ce of acute injury to the latera l stabil izing struct ures of the knee. The latera l collat eral ligame nt comple x to includ e the biceps femori s tendon , fibula r collat eral ligame nt and ilioti bial band are visual ized and intact . The pes anseri ne tendon s are normal . The extens or mechan ism is intact and normal in signal and morpho logy. IMPRES FRIDA: Degene rative change s. Suscep tibili ty type signal change medial ly. Correl ate with specif ic prior surger y. Tear versus postop erativ e change of the latera l menisc us. Intact crucia te and collat eral ligame nts Taveras' s cyst Electr onical ly signed by Rupert mello M.D. Radiol ogist on 025 1:59 AM F INAL Radiol ogist: Rupert Malik MD Dictat ed DT/TM: 01:59 EDT [facility] [address] [place] [address] Phone: Fax: [email or web address] [facility]) [address] [place] [address], [address], 08/03/2024 10:43:05 Result Notes None recorded. Procedures Surgical History Date Name Laterality Status Provider Name and Address Organization Details Recorded Time Orthopedic Surgery completed Not Available [facility] 07/22/2024 09:45:55 Gallbladder Surgery completed Not Available [facility] 07/28/2024 12:53:32 Imaging Results None recorded. Procedure Notes None recorded. Medical Equipment None Reported. Allergies Allergen ID Allergen Name Allergen Category Reaction Reaction Severity Criticality Documentation Date Start Date Code Code System Note Provider Name and Address Organization Details Recorded Time 934026 morphine medicatio n Not available Not available Not available 07/22/20241995 7052 RxNorm Not Available [facility] 5 09:37:17 668907 codeine medicatio n Not available Not available Not available 07/22/2024 2670 RxNorm Not Available [facility] 5 09:37:17 [id number] Zofran medicatio n Not available Not available Not available 07/22/2024 92182 RxNorm Not Available [facility] 5 09:37:17 [id number] lisinopri l medicatio n Not available Not available Not available 07/22/2024 57764 RxNorm Not Available [facility] 5 09:37:17 Medications Name Sig Start Date Stop Date Status Note LastModified by Organization Details LastModified Time meloxicam 7.5 mg tablet Take 1 tablet twice a day by oral route with meal(s), for prn pain. 025 active Not Available Not Available Not Avai lable Vitals Date Recorded Body weight Body mass index (BMI) Body height Provider Name and Address Organization Details Last Updated DateTime 07/26/2024 49743.89 g 26.9 kg/m2 170.18 cm Kandy Murphy [place] - [facility] 07/26/2024 13:28:59 Social History Question Answer Notes LastModified by Organizat ion Details LastModified Time Tobacco Smoking Status Former Smoker Not Available [facility] 07/22/2024 09:45:54 Do You Have An Advance Directive? No [email or web address] Information n ot available 07/22/2024 What Is The Highest Grade Or Level Of School You Have Completed Or The Highest Degree You Have Received? [id number] [email or web address] Information not available 07/22/2024 Are You Currently Taking Prescription Pain Medications? No [email or web address] Information not available 07/22/2024 Are You Currently Being Seen For Pain Management? No [email or web address] Information not available 07/22/2024 I Have Received Hospice Services This Year Or Am Currently Receiving Hospice Care No [email or web address] Information not available 07/22/2024 I Have Designated A Power Of Lay Ups Assembler/Surrogate Decision Maker. If Yes, Who Is This? No [email or web address] Information no t available 07/22/2024 Have You Taken Any Oral Or Topical Medications For This Problem? No [email or web address] Information not available 07/22/2024 Please List Any Over The Counter Medications(i.e. Tylenol, Motrin, Advil Etc. ) You Have Taken For This Problem And The Length Of Time Taken: Mortrin [email or web address] Information not available 07/22/2024 Have You Used Ice Or Heat For This Problem? Yes [email or web address] Information not available 07/22/2024 If You Have Used Ice Or Heat For This Problem, Please Specify The Length Of Time: Ice [email or web address] Information not available 07/22/2024 Have You Had Any Physical Therapy Or Home Exercise For This Problem? If Yes, Please Explain: No [email or web address] Information not available 07/22/2024 Have You Had An Injection? If Yes, Has It Been More Than 3 Months Since Your Last Injection? Yes [email or web address] Information not available 07/22/2024 Have You Used Any Assistive Devices(knee Sleeve, Balbir Bandage, Brace, Etc.) For This Problem? Yes [email or web address] Information not available 07/22/2024 Are You Experiencing Any Difficulty In Performing Daily Activities To Include Weight Bearing? If Yes, Please Explain: Yes [email or web address] Information not available 07/22/2024 Are You Participating In Any Weight Loss Or Exercise Programs Pertaining To This Problem? If Yes, Please Explain: Yes [email or web address] Information not available 07/22/2024 Is This An Auto Related Injury? No [email or web address] Information not available 07/22/2024 Is This A Work Related Injury? No [email or web address] Information not available 07/22/2024 What Was The Date Of Your Most Recent Tobacco Screening? 07/22/2024 [email or web address] Information not available 07/22/2024 How Much Tobacco Do You Smoke? 0.25 PPD [email or web address] Information not available 07/22/2024 How Many Years Have You Smoked Tobacco? 30 [email or web address] Information not available 07/22/2024 Sex: Unknown Functional Status Question Answer Note LastModified by Organizat ion Details LastModified Time What is your level of alcohol consumption? Occasional [email or web address] Information not available 07/22/2024 Are you currently employed? 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 Family History Relationship Description Onset Age of this Age Resolved Age Notes LastModified by Organization Details LastModified Time Maternal Grandmother Heart disease 84 [email or web address] Not available 2024 10:56:38 Medical History Condition Response MRSA Y Heart Attack (DC)/ Congestive Heart Fail ure (CHF) Y Diabetes Y High Cholesterol Y Hypertension Y Gynecological HistoryNo gynecological history recorded. Obstetrics History GPAL:G 0 P 0 0 0 0 Past Encounters Encounter ID Performer Location Encounter Start Date Encounter Closed Date Diagnosis/Indication Diagnosis SNOMED-CT Code Diagnosis ICD10 Code Diagnosis Note [id number] MD [facility] [address] [place] [address] 07/22/2024 09:28:32 07/22/2024 10:47:16 Pain in left knee 1740058573 97116 M25.562 Instabilit y of left patellofemoral joint 7846847437 240761 M25.362 Sprain of anterior cruciate ligament of left knee joint 8504552941 3497870 S83.512A [id number] MD [facility] [address] [place] [address] 07/26/2024 13:02:01 07/26/2024 14:16:34 Instability of left patellofemoral joint [id number] 882478 M25.362 Health Concerns Section Related Observation LastModified by Organization Detai ls LastModified Time None Recorded Concern Status LastModified by Organization Details LastModified Time None Recorded Payers Encounter Date Sequence Insurance Name Policy Number Policy Judge Covered Member ID Judge Member ID Guarantor Name 07/26/2024 1 [facility] [employer] - OPEN ACCESS PLUS [id number] Georgie Gant [id number] Georgie Gant Notes Date Note Type Note Provider Name and Address Organization Details Recorded Time text/html FOI HPI STANDARDIZEDReported bypatient.1. What side of the body part are we seeing you for today?Left 2. What body part are we seeing you for today?Knee 3. What is your hand dominance?Right 4. How long have you had the problem that you are seeing us for today?1 weeks; 3 months; 0 years 5. How did the problem you are seeing us for occur?None of the above 6. Are your symptoms (Choose one):Worsening 7. Describe your symptoms:Sharp; Burning 8. What makes your symptoms better?Lying Down 9. What makes your symptoms worse?Walking; Standing; Activity in General; Lifting 10. Discomfort level for body part being seen today on a scale of 0-10 (0=none, 10=extreme) is?Discomfort Level 8/10; Worst Discomfort 10/10 This is a 44-year-old female that presents for follow-up evaluation of her left knee. The patient was seen approximately a week ago where at that time she provided a history of her knee giving way and locking up on her. At that time she had some findings consistent with some ACL insufficiency but she also had clinical findings consistent with patellar instability. She was referred for an MRI of her knee and she presents today for follow-up evaluation. The patient states her knee keeps popping out of place and it is painful for her. Amina Knowles MD [address], [address],[employer], [place], [address], [facility] - [facility] 07/26/2024 14:07:10 OBGyn Episode No OBEpisode recorded.
--- OUTSIDE RECORDS SUMMARY | 2024-08-29 09:54 | XMS_ITS | Clinical Summary ---
Author Organization Healthcare Address [facility] [place] [id number] Care Team Providers Care Front Office Attendant Name Role Phone Casimiro Mayo MD Primary Care Provider [phone] Social History Tobacco Use Types Packs/Day Years Used Date Smoking Tobacco: Heavy Smoker Comments Unknown Sex and Gender Information Value Date Recorded Sex Assigned at Not on file Legal Sex Female 6:37 PM EDT Gender Identity Not on file Sexual Orientation Not on file Plan of Treatment Health Maintenance Due Date Last Done Comments [facility]-Depression Screening 1980 [facility]-/Child/Adol SDOH Screenings 1981 [facility]-Varicella Vaccines (1 of 2 - 13+ 2-dose series) 1994 HPV Vaccines (1 - 3-dose series) 1996 [facility]- SDOH Screenings 1999 [facility]-Adult SDOH Screenings 1999 [facility]-Hepatitis B Vaccines (1 of 3 - 19+ 3-dose series) 2000 [facility]-Pap Smear 2002 [facility]-Cervical Cancer Screening 2011 [facility]-HPV/Cotest 2011 [facility]-DTaP,Tdap,and Td Vaccines (2 - Td or Tdap) 01/28/2021 01/28/2011, 06/15/2006 KRA-UHRHM-30 Vaccine ( - 2023- season) 2023 [facility]-Influenza Vaccine (Season Ended) 2024 02/13/2020, 12/02/2017, 12/05/2016, Additional history exists [facility]-Zoster Vaccines (1 of 2) 2031 [facility]-Pneumococcal Vaccine: Pediatrics (0 to 5 Years) and At-Risk Patients (6 to 49 Years) Aged Out 12/05/2016, 12/05/2013 No longer eligibl e based on patient's age to complete this topic [facility]-HIB Vaccines Aged Out No longer e ligible based on patient's age to complete this topic [facility]-Hepatitis A Vaccines Aged Out No longer eligible based on patient's age to complete this topic [facility]-IPV Vaccines Aged Out No longer e ligible based on patient's age to complete this topic [facility]-Rotavirus Vaccines Aged Out No lo nger eligible based on patient's age to complete this topic Insurance [employer] Care Teams Front Office Attendant Relationship Specialty Start Date End Date Casimiro Mayo MD [address] [place] [address] PCP - General 10/02/20
--- OUTSIDE RECORDS SUMMARY | 2024-08-29 09:54 | XMS_ITS | Clinical Summary ---
Author Organization [facility] Health Address [address] [place] [address] Care Team Providers Care Facilities Assistant Name Role Phone Unavailable Primary Care Provider Unavailabl e Allergies Active Allergy Reactions Criticality Noted Date Comments Codeine Headache,Hives 08/25/2023 Lisinopril Hives,Swelling 08/25/2023 Morphine Shortness of breath High 08/25/2023 Ondansetron Headache,Itching 03/21/2024 Sertraline 03/21/2024 Medications doxycycline (MONODOX) 100 mg capsule Take 100 mg by mouth 1 (one) time each day. 08/25/2023 Active Active Problems No known active problems Encounters Date Type Department Care Team Description 07/29/2024 9:00 AM EDT Office Visit [facility] [address] [place] [address] Nick Pavon, DASHA 07/29/2024 8:00 AM EDT Office Visit [facility] [address] [place] [address] Ciro Nesbitt, DASHA 07/21/2024 9:30 AM EDT Office Visit [facility] [address] [place] [address] Oni Ga RDH 07/21/2024 8:00 AM EDT Office Visit [facility] [address] [place] [address] Edel Howe DMD Dental caries, unspecified (Primary Dx); Retained tooth root; Unspecified diseases of pulp and periapical tissues; Encounter for dental examination and cleaning without abnormal findings from Last 3 Months Social History Tobacco Use Types Packs/Day Years Used Date Smoking Tobacco: Some Days Cigarettes E-Cigarettes Smokeless Tobacco: Never Tobacco Cessation:Ready to Q uit: Not Asked; Counseling Given: Not Answered Alcohol Use Standard Drinks/Week Comments Not Currently 3 (1 standard drink = 0.6 oz pur e alcohol) Comments Unknown Sex and Gender Information Value Date Recorded Sex Assigned at Not on file Legal Sex Female 5:43 AM PST Gender Identity Not on file Sexual Orientation Not on file Last Filed Vital Signs Vital Sign Reading Time Taken Comments Blood Pressure 138/82 07/29/2024 8:03 AM EDT Pulse 69 07/29/2024 8:03 AM EDT Temperature - - Respiratory Rate - - Oxygen Saturation - - Inhaled Oxygen Concentration - - Weight - - Height - - Body Mass Index - - Plan of Treatment Upcoming Encounters Date Type Department Care Team (Late st Contact Info) Description 10/21/2024 1:00 PM EDT Office Visit [facility] [address] [place] [phone] [facility] [address] [place] [address] 01/27/2025 1:00 PM EST Office Visit [facility] [address] [place] [address] [facility] [address] [place] [address] 01/27/2025 1:15 PM EST Office Visit [facility] [address] [place] [phone] Edel Howe, DMD [address] [place] [address] Health Maintenance Due Date Last Done Comments Dental X-Ray: Panoramic 1980 Periodontal Maintenance 1980 OralFitnessCheck Screening 01/21/2025 07/21/2024 Dental Oral Exam 01/22/2025 07/21/2024 Dental X-Ray: Bitewings 01/22/2025 07/21/2024 Scaling and Root Planing 08/04/2026 025, 07/21/2024, 07/21/2024, Additional history exists Dental CBCT 07/22/2027 07/21/2024 Dental X-Ray: Full Mouth 07/23/2027 07/21/2024, 07/07 Procedures Procedure Name Priority Date/Time Associated Diagnosis Comments 13 CEMENT CROWN Routine 07/29/2024 9:00 AM EDT 13 INTRAORIFICE BARRIER Routine 07/30/19 8:00 AM EDT 13 TREATMENT OF ROOT CANAL OBSTRUCTION; NON-SURGICAL ACCESS Routine 07/29/2024 8:00 AM EDT TELECOM MANAGER CONSULT Routine 07/29/2024 8 :00 AM EDT NC X-RAY Routine 07/29/2024 8:00 AM EDT 13 PULP VITALITY TESTS Routine 8:00 AM EDT 13 ENDODONTIC THERAPY, PREMOLAR TOOTH (EXCLUDING FINAL BUDDHISM) Routine 07/29/2024 8:00 AM EDT ORAL HYGIENE INSTRUCTIONS Routine 07/21/2024 9:30 AM EDT TOPICAL APPLICATION OF FLUORIDE VARNISH Routine 07/21/2024 9:30 AM EDT LR ANTIBACT IRR/QUAD Routine 07/21/2024 9:30 AM EDT LR PERIODONTAL SCALING AND ROOT PLANING - FOUR OR MORE TEETH PER QUADRANT Routine 07/21/2024 9:30 AM EDT LL ANTIBACT IRR/QUAD Routine 07/21/2024 9:30 AM EDT LL PERIODONTAL SCALING AND ROOT PLANING - FOUR OR MORE TEETH PER QUADRANT Routine 07/21/2024 9:30 AM EDT UL ANTIBACT IRR/QUAD Routine 07/21/2024 9:30 AM EDT UL PERIODONTAL SCALING AND ROOT PLANING - FOUR OR MORE TEETH PER QUADRANT Routine 07/21/2024 9:30 AM EDT UR ANTIBACT IRR/QUAD Routine 07/21/2024 9:30 AM EDT UR PERIODONTAL SCALING AND ROOT PLANING - FOUR OR MORE TEETH PER QUADRANT Routine 07/21/2024 9:30 AM EDT ORAL FITNESS AMMP-8 MANUALLY RESULTED Routine 07/21/2024 8:32 AM EDT INHALATION OF NITROUS OXIDE/ANALGESIA, ANXIOLYSIS Routine 07/21/2024 8:00 AM EDT LR JW DECON/QD Routine 07/21/2024 8:00 AM EDT LL JW DECON/QD Routine 07/21/2024 8:00 AM EDT UL JW DECON/QD Routine 07/21/2024 8:00 AM EDT UR JW DECON/QD Routine 07/21/2024 8:00 AM EDT 13 PULPAL DEBRIDEMENT, PRIMARY AND PERMANENT TEETH Routine 07/21/2024 8:00 AM EDT Dental caries, unspecified PALLIATIVE TREATMENT OF DENTAL PAIN Routine 07/21/2024 8:00 AM EDT 13 CERECFIRED CROWNPOST Routine 07/22/19 8:00 AM EDT Dental caries, unspecified 13 CORE BUILDUP, INCLUDING ANY PINS WHEN REQUIRED Routine 07/21/2024 8:00 AM EDT ORALFITNESSCHECK INITIAL SCREEN Routine 07/21/2024 8:00 AM EDT INTRAORAL PHOTO Routine 07/21/2024 8:00 AM EDT INTRAORAL PHOTO Routine 07/21/2024 8:00 AM EDT INTRAORAL PHOTO Routine 07/21/2024 8:00 AM EDT INTRAORAL PHOTO Routine 07/21/2024 8:00 AM EDT ADDITIONAL X-RAY Routine 07/21/2024 8:00 AM EDT ADDITIONAL X-RAY Routine 07/21/2024 8:00 AM EDT ADDITIONAL X-RAY Routine 07/21/2024 8:00 AM EDT ADDITIONAL X-RAY Routine 07/21/2024 8:00 AM EDT ADDITIONAL X-RAY Routine 07/21/2024 8:00 AM EDT SINGLE X-RAY Routine 07/21/2024 8:00 AM EDT BITEWINGS - FOUR RADIOGRAPHIC IMAGES Routine 07/21/2024 8:00 AM EDT COMPREHENSIVE ORAL EVALUATION - NEW OR ESTABLISHED PATIENT Routine 07/21/2024 8:00 AM EDT Encounter for dental examination and cleaning without abnormal findings [facility] CT CAPTURE AND INTERPRETATION WITH FIELD OF VIEW OF BOTH JAWS; WITH OR WITHOUT CRANIUM Routine 07/21/2024 8:00 AM EDT from Last 3 Months Results * (ABNORMAL) Oral Fitness AMMP-8 manually resulted (07/21/2024 8:32 AM EDT) Active matrix metalloproteina se-8 level 17(A) 0 - 10 ng/mL Saliva Salivary gland structure / Unknown 07/21/2024 8:32 AM EDT Edel Howe DMD PDS [facility] Fin al Result from Last 3 Months Insurance [employer] PPO
--- OUTSIDE RECORDS SUMMARY | 2024-08-29 09:54 | XMS_ITS | Encounter Summary ---
Author Organization Healthcare Address [address] [place] [address] Care Team Providers Care Experimental Mechanic Name Role Phone Casimiro Mayo MD Primary Care Provider [phone] Encounter Details Date Type Department Care Team (Late st Contact Info) Description 06/05/2021 [facility] [address] [place] [address] Casimiro Mayo MD [address] [place] [address] Excess skin (Primary Dx) Social History Tobacco Use Types Packs/Day Years Used Date Smoking Tobacco: Heavy Smoker Comments Unknown Sex and Gender Information Value Date Recorded Sex Assigned at Not on file Legal Sex Female 6:37 PM EDT Gender Identity Not on file Sexual Orientation Not on file documented as of this encounter Plan of Treatment Not on file documented as of this encounter Visit Diagnoses Diagnosis Excess skin- Primary documented in this encounter Care Teams Experimental Mechanic Relationship Specialty Start Date End Date aCsimiro Mayo MD [address] [place] [address] PCP - General 10/02/20 documented as of this encounter
--- OUTSIDE RECORDS SUMMARY | 2024-08-29 09:54 | XMS_ITS | Encounter Summary ---
Author Organization Healthcare Address [address] [place] [address] Care Team Providers Care Bone Cooking Operator Name Role Phone Casimiro Mayo MD Primary Care Provider [phone] Encounter Details Date Type Department Care Team (Late st Contact Info) Description 09/06/2020 Community [facility] [address] [place] [address] Casimiro Mayo MD [address] [place] [address] Social History Tobacco Use Types Packs/Day Years Used Date Smoking Tobacco: Heavy Smoker Comments Unknown Sex and Gender Information Value Date Recorded Sex Assigned at Not on file Legal Sex Female 6:37 PM EDT Gender Identity Not on file Sexual Orientation Not on file documented as of this encounter Plan of Treatment Not on file documented as of this encounter Visit Diagnoses Not on filedocumented in this encounter Care Teams Bone Cooking Operator Relationship Specialty Start Date End Date Casimiro Mayo MD [address] [place] [address] PCP - General 10/02/20 documented as of this encounter
--- OUTSIDE RECORDS SUMMARY | 2024-08-29 09:54 | XMS_ITS | Encounter Summary ---
Author Organization [facility] Health Address [address] [place] [address] Care Team Providers Care Etched Circuit Processor Name Role Phone Unavailable Primary Care Provider Unavailabl e Prior Encounters Date Type Department Care Team Description 07/29/2024 9:00 AM EDT Office Visit [facility] [address] [place] [address] Nick Pavon, DMD 07/29/2024 8:00 AM EDT Office Visit [facility] [address] [place] [address] Ciro Nesbitt, [facility] 07/21/2024 9:30 AM EDT Office Visit [facility] [address] [place] [address] Oni Ga, 07/21/2024 8:00 AM EDT Office Visit [facility] [address] [place] [address] Edel Howe, DASHA Dental caries, unspecified (Primary Dx); Retained tooth root; Unspecified diseases of pulp and periapical tissues; Encounter for dental examination and cleaning without abnormal findings 04/27/2024 3:00 PM EST Office Visit [facility] [address] [place] [address] Nick Pavon, DASHA Dental caries, unspecified (Primary Dx) Last Filed Vital Signs Vital Sign Reading [...] Description 10/21/2024 1:00 PM EDT Office Visit [facility] [address] [place] [address] [facility] [address] [place] [address] 01/27/2025 1:00 PM EST Office Visit [facility] [address] [place] [address] [facility] [address] [place] [address] 01/27/2025 1:15 PM EST Office Visit [facility] [address] [place] [address] Edel Howe, DMD [address] [place] [address] Procedures Procedure Name Priority Date/Time Associated Diagnosis Comments 13 CEMENT CROWN Routine 07/29/2024 9:00 AM EDT 13 INTRAORIFICE BARRIER Routine 07/30/19 8:00 AM EDT 13 TREATMENT OF ROOT CANAL OBSTRUCTION; NON-SURGICAL ACCESS Routine 07/29/2024 8:00 AM EDT PHLEBOTOMIST MEDICAL LAB ASSISTANT CONSULT Routine 07/29/2024 8 :00 AM EDT NC X-RAY Routine 07/29/2024 8:00 AM EDT 13 PULP VITALITY TESTS Routine 8:00 AM EDT 13 ENDODONTIC THERAPY, PREMOLAR TOOTH (EXCLUDING FINAL GNOSTICISM) Routine 07/29/2024 8:00 AM EDT ORAL HYGIENE [...] WITHOUT CRANIUM Routine 07/21/2024 8:00 AM EDT CBCT - PROBLEM FOCUSED Routine 3:00 PM EST ADDITIONAL X-RAY Routine 04/27/2024 3:00 PM EST BITEWING - SINGLE RADIOGRAPHIC IMAGE Routine 04/27/2024 3:00 PM EST SINGLE X-RAY Routine 04/27/2024 3:00 PM EST LIMITED ORAL EVALUATION - PROBLEM FOCUSED Routine 04/27/2024 3:00 PM EST Results * (ABNORMAL) Oral Fitness AMMP-8 manually resulted (07/21/2024 8:32 AM EDT) Active matrix metalloproteina se-8 level 17(A) 0 - 10 ng/mL Saliva Salivary gland structure / Unknown 07/21/2024 8:32 AM EDT us Edel Howe DMD PDS [facility] Fin al Result Visit Diagnoses Diagnosis Start Date Dental caries, unspecified 04/27/2024 Dental caries, unspecified 07/21/2024 Retained tooth root Retained dental root 07/21/2024 Unspecified diseases of pulp and periapical tissues 07/21/2024 Encounter for dental examination and cleaning without abnormal findings 07/21/2024 Insurance [employer] P[employer]
--- OUTSIDE RECORDS SUMMARY | 2024-08-29 09:54 | XMS_ITS | Data Portability ---
Author Organization [place] [id number] [place] - Address [address] [place] [address] Care Team Providers Care Renal Medicine Specialist Name Role Phone KALYN HENRY Primary Care Provider Unavailabl e Assessment Encounter Date Assessment Date Assessment LastModified by Organization Details LastModified Time 07/22/2024 07/22/2024 This is a 44-year-old male with some left knee clinical instability associated with possible ACL injury and she also appears to have an injury to the medial patellofemoral ligament with some patellar instability. She referred for an MRI of her left knee to evaluate the structures. She is also provided with a prescription of meloxicam to take 7.5 mg p.o. twice daily with food as needed for discomfort. She will follow-up after the MRI I will make appropriate medications at that time. Not available 07/22/2024 10:46:12 07/26/2024 07/26/2024 This is a 44-year-old female [...] facilities should she need further surgical intervention. Not available 07/26/2024 14:06:49 08/08/2024 08/08/2024 ASSESSMENT: 1. Left knee, possible loose body. 2. Possible lateral meniscus tear. 3. distal IT band syndrome with snapping IT band and overlying bursitis, ? impinging osteophyte PLAN: 1. Review previous records, X-ray images, and MRI images. 2. Discuss surgical intervention, including left knee arthroscopy, possible partial lateral meniscectomy, possible loose body removal, IT band lengthening, and bursectomy. 3. Schedule surgery at a [facility] facility. 4. Postop PT: Knee arthroscopy protocol with rebound brace x 6 weeks follow-up for decision of surgery Not available 08/08/2024 12:34:58 Plan of Treatment Reminders Order Date Submit Date Provider Last Modified By Organization Details Last Modified Time Details Appointments DC-PRE OP 2024 01:30P M MAR VALENZUELA Not available Not available Not available SURGERY 2024 12:00A M Esperanza Serrano MD Not available Not available Not available PO-POST OP 2024 02:00P M MAR VALENZUELA Not available Not available Not available PO-POST OP 2024 01:30P Jewel Serrano MD Not available Not available Not available Lab None recorded. Referral physical therapist referral - Total # of Visits: 18 2024 025 [email or web address] [facility] [address] , [place], [address], 07/27/2024 09:16:32 Procedures None recorded. Surgeries None recorded. Imaging XR, knee, 3 view 2024 025 NADIR [facility], [address], [address], [place], [address], 07/22/2024 10:08:16 NM, unlisted scan - [facility], please give patients a disc to bring for imaging review. 2024 025 [email or web address] [facility], [address], [address], [place], [address], 07/22/2024 12:21:54 Medication Orders meloxicam 7.5 mg tablet 2024 025 [id number] [place], [address], 08/03/2024 12:06:42 Patient TargetsNo targets recorded. Patient Instructions Encounter Date Encounter Id Patient Instructions Last Modified By Organization Details Last Modified Time 08/08/2024 [id number] Total of 45 minutes was spent reviewing previous notes, obtaining history/exam, providing education to the patient/family/oth er, documenting in the EMR, care coordination, reviewing any relevant records and imaging, and ordering relevant prescriptions/test s/procedures Patient has a medical history , Smoking, DM, , , which increases surgical complexity and risks of surgical complications. I had a long discussion with the patient regarding her symptoms and exam findings. It does look like she might have a small displaced flap tear of the lateral meniscus in the intercondylar notch anteriorly. She does have some mild chondromalacia. Recommend arthroscopic debridement. However given her instability and locking laterally I think she might have IT band impingement over the lateral epicondyle potentially over an osteophyte of the lateral femoral condyle causing snapping of the IT band which is clearly evident on passive motion. Overlying also some crepitus likely some bursitis. I recommended IT band lengthening with open bursectomy. [email or web address] Not available 08/08/2024 12:34:29 Reason for Referral Physical Therapist Referral for Instability of left patellofemoral joint Total # of Visits: 18 Referring Physician: Amina Knowles Jr, Orthopedic Surgery Shoulder and Elbow, Encounter Date: 07/26/2024 Results Created Date Observation Date Name Description Value Unit Range Abnormal Flag Note LastModifiedBy Organization Detail LastModifiedTime 07/23/1907/22/2024 XR, knee, 3 view LEFT Electr onical ly signed by AMINA KNOWLES JR INTERFACE [facility] [address], [place], [address], 07/22/2024 10:08:16 07/27/1907/23/2024 MRI knee wo cont lt Patien t: LAUREN GANT ER : 1980 Gender : [id number] Accoun t: [id number] Comple clifton Date: 2024 Access ion #: [id number] Exam Date/T yelena: 2024 11:37 MRI [...] nt is intact withou t tear. 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 ior crucia te ligame nt is intact [...] DT/TM: 01:59 EDT [facility] [place] [address] [place] [address] Phone: [phone] Fax: [phone] [email or web address] [facility]) [address] [place], [address], 08/03/2024 10:43:05 Result Notes Documentation Provider Name and Address Organization Details Recorded Time Xr, Knee, 3 View : LEFT Electronically signed by AMINA KNOWLES JR Not Available [facility] 07/22/2024 10:08:16 Procedures Surgical History Date Name Laterality Status [...] Name and Address Organization Details Recorded Time 355745 morphine medicatio n Not available Not available Not available 07/22/20241995 7052 RxNorm Not Available [facility] 5 09:37:17 [id number] codeine medicatio n Not available Not available Not available 07/22/2024 2670 RxNorm Not Available [facility] 5 09:37:17 [id number] Zofran medicatio n Not available Not available Not available 07/22/2024 41297 RxNorm Not Available [facility] 5 09:37:17 [id number] lisinopri l medicatio n Not available Not available Not available 07/22/2024 47070 RxNorm Not Available [facility]at[facility] [...] Address Organization Details Last Updated DateTime 07/26/2024 84285.89 g 26.9 kg/m2 170.18 cm Kandy Murphy [place] [facility] 07/26/2024 13:28:59 Date Recorded Body height Body mass index (BMI) Body weight Provider Name and Address Organization Details Last Updated DateTime 08/08/2024 170.18 cm 26.9 kg/m2 28314.89 g Trish Lloyd [place] [facility] 08/08/2024 10:56:35 Social History Question Answer Notes LastModified by Organizat ion Details LastModified Time Tobacco Smoking Status Former Smoker Not Available [facility] 07/22/2024 09:45:54 Do You Have An Advance Directive? No [email or web address] Information n ot available 07/22/2024 What Is The Highest Grade Or Level Of School You Have Completed Or The Highest Degree You Have Received? [id number] [email or web address] Information not available 07/22/2024 Are You Currently Taking Prescription Pain Medications? No [email or web address] Information not available 07/22/2024 Are You Currently Being Seen For Pain Management? No [email or web address] Information not available 07/22/2024 I Have Received Hospice Services This Year Or Am Currently Receiving Hospice Care No [email or web address] Information not available 07/22/2024 I Have Designated A Power Of Manager Filter/Surrogate Decision Maker. If Yes, Who Is This? 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 Family History Relationship Description Onset Age of this Age Resolved Age Notes LastModified by Organization Details LastModified Time Maternal Grandmother Heart disease 83 [email or web address] Not available 2024 10:56:38 Medical History Condition Response MRSA Y Heart Attack (NH)/ Congestive Heart Fail ure (CHF) Y High Cholesterol Y Diabetes Y Hypertension Y Gynecological HistoryNo gynecological history recorded. Obstetrics History GPAL:G 0 P 0 0 0 0 Past Encounters Encounter ID Performer Location Encounter Start Date Encounter Closed Date Diagnosis/Indication Diagnosis SNOMED-CT Code Diagnosis ICD10 Code Diagnosis Note [id number] MD [facility] [address] [place] [address] 07/22/2024 09:28:32 07/22/2024 10:47:16 Pain in left knee 8915298370 11922 M25.562 Instabilit y of left patellofemoral joint 1677036262 472044 M25.362 Sprain of anterior cruciate ligament of left knee joint 7954598425 0292092 S83.512A [id number] MD [facility] [address] [place] [address] 5 07/26/2024 13:02:01 07/26/2024 14:16:34 Instability of left patellofemoral joint 3037602559 398908 M25.682 [id number] MD [facility] [address] [place] [address] 08/08/2024 10:26:04 08/08/2024 11:35:43 Iliotibial band friction syndrome of left knee 2450863892 18635 M76.32 Tear of la teral meniscus of knee 394722893 S83.272A Loose body in left knee joint 7282350105 82990 M23.42 Health Concerns Section Related Observation LastModified by Organization Detai ls LastModified Time None Recorded Concern Status LastModified by Organization Details LastModified Time None Recorded Advance Directives Directive N: Payers Insurance Date Sequence Insurance Name Policy Number Policy Judge Covered Member ID Judge Member ID Guarantor Name 08/17/2024 1 [employer]KE (PPO) [id number] Georgie aGnt [id number] Georgie Gant 08/17/2024 1 [employer] - [facility] [employer] OPEN ACCESS PLUS [id number] Georgie Gant [id number] Georgie Gant Notes Date Note Type Note Provider Name and Address Organization Details Recorded Time text/html FOI HPI STANDARDIZEDReported bypatient.1. What side of the body part are we seeing you for today?Left 2. What body part are we seeing you for today?Knee 3. What is your hand dominance?Right 4. How long have you had the problem that you are seeing us for today?2 weeks; 3 months; 4 years 5. How did the problem you are seeing us for occur?None of the above 6. Are your symptoms (Choose one):Worsening 7. Describe your symptoms:Painless; Burning; Ache 8. What makes your symptoms better?Lying Down 9. What makes your symptoms worse?Walking; Standing; Sitting; Stooping/Bending; Lifting; Carrying; Twisting; Exercise; Previous Surgery; Changing Clothes; Getting Out of Bed; Going from sit to stand; Upstairs; Downstairs; Cold Weather 10. Discomfort level for body part being seen today on a scale of 0-10 (0=none, 10=extreme) is?Discomfort Level 7/10; Worst Discomfort 10/10 This is a 44-year-old female that presents with a complaint of left knee pain for approximately 4 months or more. The patient is not sure exactly what precipitated her symptoms. She states that she intermittently will get her knee to lock in a position that she will have to maneuver it to get it to move again. She has a history of undergoing a left knee scope approximately 4 years ago in [place]. She thinks that they worked on her meniscus at that time. She presents today for further evaluation management. Amina Knowles MD [address], [address],[facility] [employer] [facility], [place], [address], [facility] - [facility] 07/22/2024 10:46:49 5 text/html FOI HPI STANDARDIZEDReported bypatient.1. What side [...] is painful for her. Amina Knowles MD [address], [address],[facility] [place] [facility], [place], [address], [facility] - [facility] 07/26/2024 14:07:10 5 text/html FOI HPI STANDARDIZEDReported bypatient.1. What side of the body part are we seeing you for today?Left 2. What body part are we seeing you for today?Knee 3. What is your hand dominance?Right 4. How long have you had the problem that you are seeing us for today?1 weeks; 3 months; 4 years 5. How did the problem you [...] 10=extreme) is?Discomfort Level 8/10; Worst Discomfort 10/10 6/2 Georgie Gant is a 44-year-old female who presents for a second opinion regarding left knee pain. She was initially seen on 07/22 for knee pain that had been ongoing for approximately four months. The knee locks into position, and she had a knee scope about four years ago. Conservative treatment was recommended, including a home exercise program and meloxicam. An MRI was ordered, and physical therapy was initiated for patellar instability, along with a patellar stabilizing brace. She was referred to this office for further evaluation and potential surgical intervention, as she has [employer] insurance. Georgie reports that the knee pain has worsened, with episodes of locking and a burning sensation. She recently experienced a fall two days ago due to the knee locking while walking. The knee also locks at night, waking her up frequently. 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 There is no history of major trauma, ACL tear, or kneecap dislocation. She has not had any other surgeries on the left knee since the initial scope. Reports the catching and locking sensation on the lateral side of the knee IMAGING: MRI of the left knee demonstrates mild tricompartmental osteoarthritis, medial plica, posterior horn lateral meniscus tissue change, and questionable displaced flap tear of the anterior horn lateral meniscus. Soft tissue post-surgical changes are also noted. ESPERANZA SERRANO MD [address], [address],[facility], [place], [address], [facility] - [facility] 08/08/2024 12:35:09 OBGyn Episode No OBEpisode recorded.
--- OUTSIDE RECORDS SUMMARY | 2024-08-29 09:54 | XMS_ITS | Continuity of Care Document ---
Author Organization [place] [facility], [facility] Address [address] [place] [address] Care Team Providers Care Router Operator Radial Name Role Phone KALYN HENRY Primary Care Provider Unavailabl e Assessment Encounter Date Assessment Date Assessment LastModified by Organization Details LastModified Time 08/08/2024 08/08/2024 ASSESSMENT: 1. Left knee, possible [...] and bursectomy. 3. Schedule surgery at a [facility] facility. 4. Postop PT: Knee arthroscopy protocol with rebound brace x 6 weeks follow-up for decision of surgery [email or web address] Not available 08/08/2024 12:34:58 Plan of Treatment Reminders Order Date Submit Date Provider Last Modified By Organization Details Last Modified Time Details Appointments LA-PRE OP 2024 01:30P M MAR VALENZUELA Not available Not available Not available SURGERY 2024 12:00A M Esperanza Serrano MD Not available Not available Not available PO-POST OP 2024 02:00P M MAR VALENZUELA Not available Not available Not available PO-POST OP 2024 01:30P M Esperanza Serrano MD Not available Not available Not available Lab None recorded . Referral None recorded . Procedures None recorded . Surgeries None recorded . Imaging None recorded . Medication Orders None recorded . Patient TargetsNo targets recorded. Patient Instructions Encounter Date Encounter Id Patient Instructions Last Modified By Organization Details Last Modified Time 08/08/2024 [id number] Total of 45 minutes was spent reviewing [...] recommended IT band lengthening with open bursectomy. [email or web address] Not available 08/08/2024 12:34:29 Reason for Referral None Reported. Results Created Date Observation Date Name Description Value Unit Range Abnormal Flag Note LastModifiedBy Organization Detail LastModifiedTime 07/23/1907/22/2024 XR, knee, 3 view LEFT Electr onical ly signed by AMINA BRIGHT [facility] [address], [place], [address], 07/22/2024 10:08:16 07/27/19 25 07/23/2024 MRI knee wo cont lt Patien t: LAUREN GANT ER : 1980 Gender : F 2352 Accoun t: [id number] Comple clifton Date: 2024 Access ion #: [id number] Exam Date/T yelena: 2024 11:37 MRI [...] nt is intact withou t tear. 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 Procedures [...] Name and Address Organization Details Recorded Time 731100 morphine medicatio n Not available Not available Not available 07/22/20241995 7052 RxNorm Not Available [facility] 5 09:37:17 [id number] codeine medicatio n Not available Not available Not available 07/22/2024 2670 RxNorm Not Available [facility] 5 09:37:17 [id number] Zofran medicatio n Not available Not available Not available 07/22/2024 79570 RxNorm Not Available [facility] 09:[facility]17 [id number] lisinopri l medicatio n Not available Not available Not available 07/22/2024 82161 RxNorm Not Available [facility] 09:[facility]17 Medications Name Sig Start Date Stop Date Status Note LastModified by Organization Details LastModified Time meloxicam 7.5 mg tablet Take 1 tablet twice a day by oral route with meal(s), for prn pain. 025 active Not Available Not Available Not Avai lable Vitals Date Recorded Body height Body mass index (BMI) Body weight Provider Name and Address Organization Details Last Updated DateTime 08/08/2024 170.18 cm 26.9 kg/m2 79645.89 g Trish LEROY - [facility] 08/08/2024 10:56:35 Social History Question Answer Notes LastModified by Organizat ion Details LastModified Time Tobacco Smoking Status Former Smoker Not Available [facility] 07/22/2024 09:45:54 Do You Have An Advance Directive? No [email or web address] Information n ot available 07/22/2024 What Is The Highest Grade Or Level Of School You Have Completed Or The Highest Degree You Have Received? [id number] [email or web address] Information not available 07/22/2024 Are You Currently Taking Prescription Pain Medications? No [email or web address] Information not available 07/22/2024 Are You Currently Being Seen For Pain Management? No [email or web address] Information not available 07/22/2024 I Have Received Hospice Services This Year Or Am Currently Receiving Hospice Care No [email or web address] Information not available 07/22/2024 I Have Designated A Power Of Neurophysiology Tech/Surrogate Decision Maker. If Yes, Who Is This? 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 Family History Relationship Description Onset Age of this Age Resolved Age Notes LastModified by Organization Details LastModified Time Maternal Grandmother Heart disease 83 [email or web address] Not available 2024 10:56:38 Medical History Condition Response MRSA Y Heart Attack ([place])/ Congestive Heart Fail ure (CH[place]) Y Diabetes Y High Cholesterol Y Hypertension Y Gynecological HistoryNo gynecological history recorded. Obstetrics History GPAL:G 0 P 0 0 0 0 Past Encounters Encounter ID Performer Location Encounter Start Date Encounter Closed Date Diagnosis/Indication Diagnosis SNOMED-CT Code Diagnosis ICD10 Code Diagnosis Note [id number] MD [facility] [address] [place] [address] 07/22/2024 09:28:32 07/22/2024 10:47:16 Pain in left knee 2048313847 17162 M25.562 Instabilit y of left patellofemoral joint 8925621478 638253 M25.362 Sprain of anterior cruciate ligament of left knee joint 8760788775 2986934 S83.512A [id number] MD [facility] [address] [place] [address] 07/26/2024 13:02:01 07/26/2024 14:16:34 Instability of left patellofemoral joint 5428564718 583636 M25.310 [id number] MD [facility] [address] [place] [address] 08/08/2024 10:26:04 08/08/2024 11:35:43 Iliotibial band friction syndrome of left knee 6862231689 44984 M76.32 Tear of la teral meniscus of knee 493727985 S83.272A Loose body in left knee joint 0838542097 02865 M23.42 Health Concerns Section Related Observation LastModified by Organization Joey ls LastModified Time None Recorded Concern Status LastModified by Organization Details LastModified Time None Recorded Payers Encounter Date Sequence Insurance Name Policy Number Policy Judge Covered Member ID Judge Member ID Guarantor Name 08/08/2024 1 [employer] [facility] [facility] [employer]ESS PLUS [id number] Georgie Gant [id number] Georgie Gant Notes Date Note Type Note Provider Name and Address Organization Details Recorded Time 5 text/html FOI HPI STANDARDIZEDReported [email or web address]. What [...] and potential surgical intervention, as she has [employer] insurance. Georgie reports that the knee pain has worsened, with episodes of locking and a burning sensation. She recently experienced a fall two days ago due to the knee locking while walking. The knee also locks at night, waking her up frequently. 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
--- OUTSIDE RECORDS SUMMARY | 2024-08-29 09:54 | XMS_ITS | Encounter Summary ---
Author Organization Healthcare Address [address] [place] [address] Care Team Providers Care Plastic Installer Name Role Phone Casimiro Mayo MD Primary Care Provider [phone] Encounter Details Date Type Department Care Team (Late st Contact Info) Description 09/14/2020 [facility] [address] [place] [address] Casimiro Mayo MD [address] [place] [address] Excess skin (Primary Dx) Social [...] Primary documented in this encounter Care Teams Plastic Installer Relationship Specialty Start Date End Date Casimiro Mayo MD [address] [place] [address] PCP - General 10/02/20 documented as of this encounter
--- OUTSIDE RECORDS SUMMARY | 2024-08-29 09:55 | XMS_ITS | Clinical Summary ---
Author Organization [facility] Address [address] [place] [address] Phone Care Team Providers Care Buffer Copper Name Role Phone Willy Uribe MD Unavailable Casimiro Mayo MD Primary Care Provider + [phone] Allergies Active Allergy Reactions Criticality Noted Date Comments Codeine Hives Medium 12/20/2009 Propoxyphene N-Acetaminophen Hives Medium 12/20/2009 Lisinopril Swelling High 05/01/2019 Angioedema Morphine Swelling High 12/20/2009 Quit breathing Hydrocodone-Acetaminoph en Nausea And Vomiting Medium 04/03/2013 Ondansetron Hcl Hives Medium 10/07/2021 Hives and headache Sertraline Other (See Comments) Medium 12/20/2009 Bad headaches Medications Blood-Glucose Meter Misc KitIndications: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, without long-term current use of insulin ([facility]) Pt to test BID per insurance 1 Kit 09/23/19 17 Active Blood Sugar Diagnostic (ACCU-CHEK CAROLINE PLUS TEST STRP) Misc StripIndications: Controlled type 2 diabetes mellitus with diabetic nephropathy, without long-term current use of insulin ([facility]) TEST BLOOD SUGAR PRN FOR SYMPTOMS OF HYPER OR HYPOGLYCEMIA 100 Strip 11 09/23/19 17 Active Lancets (ACCU-CHEK SOFTCLIX LANCETS) Misc MiscIndications:C ontrolled type 2 diabetes mellitus with diabetic nephropathy, without long-term current use of insulin ([facility]) USE TO TEST BLOOD SUGAR 2 TIMES DAILY 100 Each 11 09/23/19 17 Active potassium chloride SA (K-DUR;KLOR-CON) 20 mEq Oral Tab Sust.Rel. Particle/Crystal Take 1 Tab by mouth 2 times daily. 60 Tab 12/05/19 18 Active BIOTIN ORAL Take by mouth daily. Active diclofenac (VOLTAREN) 1 % Top Gel 1 g as needed. 06/29/19 Active PREMARIN Vagl Cream 1 g daily. 08/27/19 Active rOPINIRole (REQUIP) 3 mg Oral Tablet Take 3 mg by mouth nightly. 12/10/19 22 Active gabapentin (NEURONTIN) 600 mg Oral Tablet Take 600 mg by mouth nightly. 03/04/20 22 Active omeprazole (PRILOSEC) 20 mg Oral Capsule, Delayed Release(E.C.) Take 1 Capsule by mouth every morning (before breakfast). 30 Capsule 06/30/19 23 Active clonazePAM (KLONOPIN) 0.5 mg Oral Tablet Take 0.5 mg by mouth nightly. Active metFORMIN (GLUCOPHAGE) 500 mg Oral Tablet Take 1 Tablet by mouth 2 times daily. 10/27/19 23 Active fUROsemide (LASIX) 40 mg Oral Tablet Take 1 Tablet by mouth 2 times daily as needed (edema). 10/26/19 23 Active atorvastatin (LIPITOR) 40 mg Oral Tablet Take 1 Tablet by mouth nightly. 30 Tablet 10/25/2022 12:09 PM EDT 10/26/19 23 Active OZEMPIC 1 mg/dose (4 mg/3 mL) SubQ Pen Injector once a week. 11/02/19 23 Active losartan (COZAAR) 25 mg Oral Tablet 25 mg every morning. 07/12/19 23 Active multivit-min/ferr ous fumarate (MULTI VITAMIN ORAL) Take by mouth daily. Active oxyCODONE (ROXICODONE) 5 mg Oral TabletIndications :Lateral epicondylitis of right elbow,Partial tear of common extensor tendon of right elbow Take 2 Tablets by mouth every 4 hours as needed for Major Surgery/Trauma (G89.18). 50 Tablet 11/08/19 23 Active Active Problems Patient Care Coordination No te Formatting of this note migh t be different from the original. Dismissal letter mailed certified for repeated no shows per Dr Melchor-01/10/16 Dismissal letter from Daphnie Valdes APRN - 02/26/17 For multiple no-shows No controlled substances from [facility] - pt failed UDS. - ROL. On valium from pain Problem Noted Date Diagnosed Date Chest pain, unspecified type 10/23/2022 Partial tear of common extensor tendon of right elbow 10/15/2022 Lateral epicondylitis of right elbow 10/15/2022 Acute pain of left knee 07/17/2022 Left wrist pain 09/20/2021 Overview (09/20/2021): Added automatically from request for surgery [id number] Trigger finger, left middle finger 09/20/2021 Overview (09/20/2021): Added automatically from request for surgery [id number] Trigger finger, right middle finger 09/20/2021 Overview (09/20/2021): Added automatically from request for surgery [id number] Trigger finger, right ring finger 09/20/2021 Overview (09/20/2021): Added automatically from request for surgery [id number] 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) 09/20/2021 Overview (09/20/2021): Added automatically from request for surgery [id number] Peripheral tear of lateral m eniscus of left knee as current injury 07/12/2020 Overview (07/12/2020): Added automatically from request for surgery [id number] Hematochezia 12/01/2017 Chest pain 08/29/2017 Weakness generalized 08/29/2017 Syncope 08/29/2017 Muscle spasms of both lower extremities 01/20/20 Acute right-sided low back pain with right-sided sciatica 12/02/2016 Hypokalemia 09/18/2015 Tiredness 10/24/2014 Snoring 10/24/2014 Obesity, Class III, BMI 40-49.9 (morbid obesity) 10/24/2014 AR (allergic rhinitis) 06/27/2014 Vitamin D deficiency 03/01/2014 Diabetes mellitus type 2 in obese 02/21/2014 CTS (carpal tunnel syndrome) 05/12/2012 B12 deficiency Mood disorder Anxiety Anxiety and depression Depression Hyperlipidemia Tobacco abuse Kidney stones Resolved Problems Problem Noted Date Diagnosed Date Resolved Date Pharyngitis 09/18/2015 05/28/2016 Abnormal drug screen 01/03/2015 017 Overview (01/03/2015): Failed uds - prescribed med not present. 03/2014 Pt admits to buying xanax illegally. 12/2014 Obesity 05/28/2016 Immunizations Immunization Administration Dates Next Due Influenza Seasonal Injectable PF 12/05/2013 Influenza Vaccine Quadrivalent PF 12/02/2017, Pneumococcal Conjugate Vaccine 13 Valent 017 Pneumococcal Polysaccharide 23 Valent 12/05/2013 Tdap 01/28/2011 Surgical History Surgery Date Site/Laterality Comments CHOLECYSTECTOMY TUBAL LIGATION CARPAL TUNNEL RELEASE 05/12/2012 Wrist/Bilateral BILATERAL CARPAL TUNNEL RELEASE ; Surgeon: Victoriano Begum MD; Location: [facility] MAIN OR; Service: Hand TONSILLECTOMY AND ADENOIDECTOMY CYSTOSCOPY 12/05/2013 Ureter/Right CYSTOSCOPY, RIGHT RETROGRADE, URETEROSCOPY, HOLMIUM LASER STONE MANIPULATION, STONE EXTRACTION, RIGHT URETERAL STENT PLACEMENT; Surgeon: Nadeem Chung MD; Location: [facility] MAIN OR; Service: Urology Medical devices from this surgery are in the Medical Devices section. CYSTOSCOPY 12/05/2013 Surgeon: Nadeem Chung MD; Location: [facility] MAIN OR; Service: Urology Medical devices from this surgery are in the Medical Devices section. CYSTOSCOPY 12/12/2013 Right CYSTOSCOPY RIGHT STENT REMOVAL; Surgeon: Trevor Mcclellan MD; Location: [facility] MAIN OR; Service: Urology Medical devices from this surgery are in the Medical Devices section. UPPER GASTROINTESTINAL ENDOSCOPY 08/31/2017 N/A ESOPHAGOGASTRODUODENOSCOP Y with biopsy and balloon dilation; Surgeon: Carl Cash MD; Location: [facility]; Service: Endoscopy SHOULDER ARTHROSCOPY 10/20/2017 Shoulder/Right RIGHT SHOULDER ARTHROSCOPY ROTATOR CUFF REPAIR ARTHROSCOPIC SUBACROMIAL DECOMPRESSION WITH ACROMIOPLASTY. BICEPS TENOTOMY. LABRAL DEBRIDEMENT.; Surgeon: Scooby Eaton MD; Location: [facility] MAIN OR; Service: Orthopedics Medical devices from this surgery are in the Medical Devices section. SLEEVE GASTROPLASTY gastric sleeve in 2019 HYSTERECTOMY complete COLONOSCOPY 12/16/2017 KNEE ARTHROSCOPY 07/27/2020 Left LEFT knee exam under anesthesia; arthroscopy partial lateral menisectomy, chondroplasty, intra-articular injection; Surgeon: Eric Hoffmann MD; Location: [facility]; Service: Orthopedics KNEE JOINT MANIPULATION 07/27/2020 Left LEFT knee exam under anesthesia; arthroscopy partial lateral menisectomy, possible chondroplasty, intra-articular injection; Surgeon: Eric Hoffmann MD; Location: [facility]; Service: Orthopedics FINGER TRIGGER RELEASE 09/25/2021 Hand/Wrist/Bilater al right middle finger and ring finger and left middle finger trigger finger release; Surgeon: Venkata Mcgrath MD; Location: [facility]; Service: Hand CARPAL TUNNEL RELEASE 03/26/2022 Hand/Wrist/Left Left first dorsal compartment release ; Surgeon: Venkata Mcgrath MD; Location: [facility]; Service: Hand CARDIAC CATHETERIZATION ELBOW SURGERY 11/07/2022 Arm/Elbow/Right RIGHT ELBOW LATERAL EPICONDYLE DEBRIDEMENT WITH REPAIR EXTENSOR ORIGIN NIRSCHL; Surgeon: Dylon Marte DO; Location: [facility]; Service: Orthopedics Medical devices from this surgery are in the Medical Devices section. Medical History Medical History Date Comments Back pain taking percocet Tobacco abuse down to 1-2 ciga rettes daily Obesity Hyperlipidemia Depression in the past only Bipolar disorder (HCC) Anxiety B12 deficiency in the past Pneumonia yearly bouts in the past Diabetes mellitus (HCC) type II Gestational diabetes X5 Kidney stones has had multiple CHF (congestive heart failure) (HCC) Arthritis Syncope 05/01/2019 and 11/2017 due t o hypokalemia Acute stomach ulcer Lumbar herniated disc x2 DDD (degenerative disc disea se), lumbar Hypokalemia Irregular heart beat Hypertension no issues since weight loss Fatty liver Acid reflux Migraines hx of Post-operative nausea and vomiting Slow to wake up after anesthesia wakes up mean also Motion sickness on boats Lab test positive for detect ion of COVID-19 virus 01/11/2020 Edema hands and feet o ff and on, takes lasix prn Anemia Chest pain 03/18/2022 chest pain and s ome SOB lasting a few minutes 03/18/2022, her S.O. 03/2022, she was talking to S.O. son and was very upset at the time she had chest pain Near syncope 10/07/2021 and 08/07/2020 due to hypokalemia CAD (coronary artery disease) no n obstructive CAD on cardiac cath from 10/25/22 RLS (restless legs syndrome) Angina pectoris hospitalized in Oct 2022 for chest pain, had cardiac workup at that time Family History Medical History Relation Name Comments Diabetes Brother Bipolar Disorder Father Diabetes Father Heart Attack Father Heart Disease Father CABG Breast Cancer Maternal Aunt 1 Breast Cancer Maternal Aunt 2 Cancer Maternal Grandfather unknown Heart Attack Maternal Grandfather Urolithiasis Maternal Grandfather No Known Problems Maternal Grandmother Heart Attack Maternal Uncle X2 Allergies Mother Diabetes Mother Migraines Mother Thyroid Disease Mother Urolithiasis Mother No Known Problems Paternal Grandmother Lung Cancer Paternal Uncle Kidney Disease Sister 1 Anesth Problems Neg Hx Relation Name Status Comments Brother Alive Father Alive Maternal Aunt 1 Maternal Aunt 2 Maternal Grandfather Maternal Grandmother Alive Maternal Uncle Mother Alive Paternal Grandfather Paternal Grandmother Alive Paternal Uncle Sister 1 Alive Sister 2 Sister 3 Sister 4 Sister 5 Social History Tobacco Use Types Packs/Day Years Used Date Smoking Tobacco: Every Day Cigarettes 0.5 22.7 Started: 12/02/2001 Smokeless Tobacco: Never Tobacco Cessation:Ready to Q uit: Not Asked; Counseling Given: Not Answered Alcohol Use Standard Drinks/Week Comments Yes 21 (1 standard drink = 0.6 oz pu re alcohol) per week AUDIT-C Answer Date Recorded Q1: How often do you have a drink containing alc ohol? Never 08/07/2020 Average Number of Drinks Not on file 021 Frequency of Binge Drinking Not on file 03/2020 Overall Financial Resource Strain (CARDIA) Answe r Date Recorded How hard is it for you to pa y for the very basics like food, housing, medical care, and heating? Somewhat hard 10/24/2022 PHQ-2 Answer Date Recorded PHQ-2 Total Score 0 10/24/2022 Exercise Vital Sign Answer Date Recorde d On average, how many days pe r week do you engage in moderate to strenuous exercise (like a brisk walk)? 0 days 10/24/2022 On average, how many minutes do you engage in exercise at this level? 0 min 10/24/2022 Hunger Vital Sign Answer Date Recorded Within the past 12 months, y ou worried that your food would run out before you got the money to buy more. Never true 10/25/19 23 Within the past 12 months, t he food you bought just didn't last and you didn't have money to get more. Never true 10/24/2022 PRAPARE - Transportation Answer Date Re corded In the past 12 months, has l ack of transportation kept you from medical appointments or from getting medications? No 10/07 In the past 12 months, has l ack of transportation kept you from meetings, work, or from getting things needed for daily living? No 10/24/2022 Sexually Active Control Partners Comments Yes Surgical Male Comments No Sex and Gender Information Value Date Recorded Sex Assigned at Not on file Legal Sex Female 2:43 AM EDT Gender Identity Not on file Sexual Orientation Not on file Obstetrics History Para Term AB IAB SAB Ectopic Multiple Livin g Live Births 10 5 0 5 5 0 5 0 2 5 Date Outcome GA Total Labor Labor/2nd/3rd Weight Sex Type Anes PTL Amarilys A1 A5 Name Clin SAB Comments:twin SAB Comments:twin 35w 0d F Vag-S pont Comments:gestational d m 36w 0d F Vag-S pont Epidural Comments:gestational d m 36w 0d M Vag-S pont Epidural Comments:gestational d m 36w 0d M Vag-S pont Epidural Comments:gestational d m 36w 0d M Vag-S pont Epidural Comments:gestational d m SAB SAB SAB Last Filed Vital Signs Vital Sign Reading Time Taken Comments Blood Pressure 155/95 03/10/2023 11:34 AM EST Pulse 81 03/10/2023 11:34 AM EST Temperature 36.7 C (98 F) 03/10/2023 9:08 AM EST Respiratory Rate 18 03/10/2023 10:18 AM EST Oxygen Saturation 99% 03/10/2023 11:34 AM EST Inhaled Oxygen Concentration - - Weight 75.8 kg (167 lb) 03/10/2023 9:08 AM EST Height 170.2 cm (5' 7 ) 03/10/2023 9:08 AM EST Body Mass Index 26.16 03/10/2023 9:08 AM EST Plan of Treatment Health Maintenance Due Date Last Done Comments Diabetic Eye Exam 1999 Hepatitis B Vaccine (1 of 3 - 19+ 3-dose series) 2000 HPV/Pap Cotest 2011 Annual Wellness Exam 01/22/2017 01/23/2016, 03/14/2014 (Postponed) Kidney Health: uACR 01/22/2017 01/23/2016, 4 Cervical Cancer Screening 03/14/2017 Pap Smear 03/14/2017 03/14/2014 (Postponed) Colon Cancer Screening 12/16/2020 Colonoscopy 12/16/2020 12/16/2017 DTaP/TDaP/Td (2 - Td or Tdap) 01/28/2021 01/28/2011, 06/15/2006 Breast Cancer Screening 2021 Hemoglobin A1c 05/03/2023 10/31/2022, 10/07, 10/24/2022, Additional history exists Lipids 10/25/2023 10/24/2022, 10/07, 09/27/2021, Additional history exists COVID-19 Vaccine ( season) 2023 Kidney Health: eGFR 03/10/2024 03/10/2023, 10/25/2022, 10/24/2022, Additional history exists Influenza Vaccine (Season Ended) 2024 01/27/2023, 03/04/2022, 02/13/2020, Additional history exists Pneumococcal Vaccine 0-49 (3 of 3 - PCV20 or PCV21) 2031 12/05/2016, 12/05/2013 Meningococcal B Vaccine Aged Out No l onger eligible based on patient's age to complete this topic Goals Goal Patient Goal Type Associated Problems Recent Progress Patient-Stated? Author Blood Pressure < 140/90 Blood Pressure 155/95(2023 11:34 AM EST) No Staci Teixeira CCMA BMI (Calculated) < 30 General 26.2(03/10/19 9:08 AM EST) No Staci Teixeira CCMA Eat better, exercise, reach an ideal body weight General No Katarina Agudelo RMA Stay Tobacco Free Lifestyle No Katarina Agudelo RMA HEMOGLOBIN A1C < 7.0 Result Component 5.4( 10:38 AM EDT) No Staci Teixeira CCMA Medical Devices Implanted Type Area Welder Assembler Device Identifier Shelf Expiration Date Model / Serial / Lot Healicoil Regenesorb Suture [place] 5.5mm W/3 Ultrabraid Sutures - [id number] Implanted:Qty: 1 on 10/20/2017 by Scooby Eaton MD at [facility] Right: Shoulder [employer]:ORTHO 02/21/2020 [id number] / / [id number] [place] Sut Gii Quickanc+ 2.4x8.8mm Pe #2 Orthocord Cp-2 Ndl - [id number] Implanted:Qty: 1 on 11/07/2022 by Dylon Marte DO at [facility] Right: Elbow J[employer]J:ETHICON:MITE K PRDT 04/08/2025 [id number] / / [id number] Explanted Type Area Welder Assembler Device Identifier Shelf Expiration Date Model / Serial / Lot Stent Contour 6 X 24 #[id number] - [id number] Implanted:Qty: 1 on 12/05/2013 by Nadeem Chung MD at [facility] Explanted:Qty: 1 on 12/12/2013 by Trevor Mcclellan MD at [facility] Stent Right: Ureter [employer]:MICROVASIVE: UROLOGY [id number] 09/06/2016 [id number] / / [id number] Procedures Procedure Name Priority Date/Time Associated Diagnosis Comments BASIC METABOLIC PANEL STAT 03/10/2023 8:16 AM EST LIPID SCREEN Routine 10/24/2022 10:38 AM EDT HEMOGLOBIN A1C Routine 10/24/2022 10:38 AM EDT [facility] COLONOSCOPY Routine 12/16/2017 8:00 AM EDT MICROALBUMIN/CREATIN INE RATIO URINE Routine 01/23/2016 8:57 AM EST Controlled type 2 diabetes mellitus without complication, with long-term current use of insulin (HCC) from Last 3 Months or Most Recently Relevant to Health Maintenance Results * (ABNORMAL) BASIC METABOLIC PANEL (03/10/2023 8:16 AM EST) Sodium 139 136 - 145 mmol/L 03/10/2023 8:47 AM EST [facility] Potassium 2.9(LL) 3.5 - 5.0 mmol/L 03/10/2023 8:47 AM EST [facility] Chloride 100 98 - 107 mmol/L 03/10/2023 8:47 AM EST [facility] Total CO2 26 22 - 29 mmol/L 03/10/2023 8:47 AM EST [facility] Anion Gap 13 7 - 16 mmol/L 03/10/2023 8:47 AM EST [facility] Calcium 9.6 8.6 - 10.4 mg/dL 03/10/2023 8:47 AM EST [facility] Glucose Lvl 120(H) 74 - 100 mg/dL 03/10/2023 8:47 AM EST [facility] BUN 11 6 - 20 mg/dL 03/10/2023 8:47 AM EST [facility] Creatinine 0.55 0.51 - 1.30 mg/dL 03/10/2023 8:47 AM EST [facility] eGFR (CKD-EPIcr 2020) 117 >=60 mL/min/1.7 3 m2 03/10/2023 8:47 AM EST [facility] Comment:Estimated GFR was ca lculated using the CKD-EPIcr (2020) equation refit without race. The equation is recommended by the National Kidney Foundation - [place] [employer] of Nephrology Task Force. Blood VENOUS BLOOD / Unknown Venipuncture / Unknown 03/10/2023 8:16 AM EST 03/10/2023 8:21 AM EST us Tarun Mixon MD CHEMISTRY ORDERABLES Final Resul t [facility] [address] [place] [address] * HEMOGLOBIN A1C (10/24/2022 10:38 AM EDT) Hgb A1C 5.4 4.2 - 5.6 % 10/24/2022 1:04 PM EDT [facility] [employer] [facility] Est. Avg Glucose 108 mg/dL 10/24/2022 1:04 PM EDT [facility] [employer] Blood VENOUS BLOOD / Unknown Venipuncture / Unknown 10/24/2022 10:38 AM EDT 10/24/2022 11:22 AM EDT Narrative PREFERRED [employer] [facility] - 10/24/2022 1:04 PM EDT REFERENCE RANGE: Normal: 4.0-5.6% Pre-diabetes: 5.7-6.4% Provisional diagnosis of diabetes: >6.4% Hgb F>10% and anything which shortens red cell survival, such as hemolytic anemia, or unstable hemoglobin variants such as HbSS, HbSC, or HbCC, will lower the HbA1c value associated with a given level of glycemic control. us Chester Sky MD CHEMISTRY ORDERABLES Final Resul t [facility] [employer] [address] [facility] , [place] [address] * (ABNORMAL) LIPID SCREEN (10/24/2022 10:38 AM EDT) Cholesterol 198 <200 mg/dL 10/24/2022 12:28 PM EDT [facility] [employer] Comment: < 200 Desirable 200 - 239 Borderline High >= 240 High Triglyceride 103 <150 mg/dL 10/24/2022 12:28 PM EDT [facility] Comment: < 150 Normal 150 - 199 Borderline High 200 - 499 High >= 500 Very High HDL 69 >=40 mg/dL 10/24/2022 12:28 PM EDT [facility] Comment: > 60 Optimal 40 - 60 Acceptable < 40 Low LDL Calculated 111(H) <100 mg/dL 10/24/2022 12:28 PM EDT [facility] Comment: < 100 Optimal 100 - 129 Near or above optimal 130 - 159 Borderline High 160 - 189 High >= 190 Very High Non-HDL-C Calculated 129 <=129 mg/dL 10/24/2022 12:28 PM EDT [facility] Comment: <130 Desirable 130-159 Above Desirable 160-189 Borderline High 190-219 High >= 220 Very High Fasting Specimen? No None 023 12:28 PM EDT [facility] Blood VENOUS BLOOD / Unknown Venipuncture / Unknown 10/24/2022 10:38 AM EDT 10/24/2022 11:22 AM EDT us Chester Sky MD CHEMISTRY ORDERABLES Final Resul t Performing Organization Address [facility] Co de Phone Number [facility] [address] [place] [address], [place] [address] [facility] [address] [place] [address] * GMED COLONOSCOPY (12/16/2017 8:00 AM EDT) 12/16/2017 8:00 AM EDT Impressions [facility] - 12/16/2017 8:45 AM EDT Normal mucosa in the terminal ileum. Normal mucosa in the whole colon. (Biopsy). Polyp (10 mm) in the proximal sigmoid colon. (Polypectomy). Diverticulosis of the sigmoid colon. Internal hemorrhoids. Plan: Await pathology results This section is an excerpt of the full report. us Bhanu Gibbs MD GI PROCEDURE ORDERABLES Final R esult Performing Organization Address [facility] Co de Phone Number [facility] [address] [place] [address] * MICROALBUMIN/CREATININE RATIO URINE (01/23/2016 8:57 AM EST) Urine Microalb 12.7 mg/L [facility] Urine Creatinine 236.2 mg/dL [facility] Ur Microalb/Creat See Footnote 0 - 30 [facility] Comment:Unable to calculate due to value outside linearity. Urine specimen (specimen) STRUCTURE OF URINARY TRACT PROPER / Unknown 01/23/2016 8:57 AM EST 01/23/2016 5:17 PM EST Kandy Fajardo PA-C URINE ORDERABLES E dited Result - Final [facility] [address] [place] [address] from Last 3 Months or Most Recently Relevant to Health Maintenance [place] [address] [facility] [place] [id number] [place] [id number] [place] [address] [place] [address] [place] [address] MDR Advance Directives For more information, please contact: [phone] * Full Code (Latest Code Status on File) Date Activated Date Inactivated Comments 10/23/2022 9:03 PM 10/25/2022 6:44 PM * Full Code Date Activated Date Inactivated Comments 10/23/2022 7:41 PM 10/23/2022 9:03 PM * Full Code Date Activated Date Inactivated Comments 12/01/2017 11:58 PM 12/04/2017 2:47 PM * Full Code Date Activated Date Inactivated Comments 08/28/2017 11:30 PM 08/31/2017 6:54 PM * Full Code Date Activated Date Inactivated Comments 12/03/2016 2:23 PM 12/06/2016 1:04 AM Care Teams Buffer Copper Relationship Specialty Start Date End Date Casimiro Mayo MD [address] [place] [id number] PCP - General Emergency Medicine 10/24/22 Willy Uribe MD [address] [address] Physician Anesthesiology-Pain Medicine 11/16/13
== END 2024-08-26 23:59 | disposition home or self-care (01) ==
LOC: LAB.DROPOF 08-29 09:38
PROVIDERS: PCP Family Medicine; Visit Provider Family Medicine
DX: E53.8 Deficiency of other specified B group vitamins (principal); E78.5 Hyperlipidemia, unspecified; I10 Essential (primary) hypertension; E11.9 Type 2 diabetes mellitus without complications
CPT/HCPCS: 80053; 80061; 82607; 83036; 84443

== ENCOUNTER 2024-11-25 14:01 | Outpatient (CLI) | payer OTHER, MEDICAID, SELFPAY ==
[2024-11-25 20:21] LABS: Albumin Level 4.7 g/dl (3.5-5.0); Chloride 100 mmol/L (98-107); Potassium 5.1 mmoL/L (3.5-5.1); Sodium 140 mmol/L (136-145)
[2024-11-25 20:23] LABS: Blood Urea Nitrogen 13 mg/dl (7-17); Creatinine,Serum 0.80 mg/dl (0.52-1.04); Estimated Glomerular Filt Rate 78 ml/min (>60); GFR (African American) 95 ML/MIN (>60)
[2024-11-25 20:24] LABS: Alanine Aminotransferase 48 U/L (12-78); Albumin/Globulin Ratio 1.8 (1.1-1.8); Alkaline Phosphatase 74 U/L (38-126); Anion Gap 17.1 mEq/L (5-15); Aspartate Amino Transferase 44 U/L (14-36); Bilirubin,Total 0.5 mg/dl (0.2-1.3); Calcium 10.1 mg/dl (8.4-10.2); Carbon Dioxide 28 mmol/L (22.0-30.0); Globulin 2.6 g/dL (1.3-3.2); Glucose 91 mg/dl (74-100); Total Protein,Serum 7.3 g/dl (6.3-8.2)
[2024-11-25 20:28] LABS: Hemoglobin A1C 5.1 % (4.0-6.0)
--- OUTSIDE RECORDS SUMMARY | 2024-11-28 09:55 | XMS_ITS | Clinical Summary ---
Author Organization [facility] Address [address] [facility] [address] [place] [id number] Phone Care Team Providers Care Floor Hand Name Role Phone Unavailable Unavailable Conditions or Problems No information available. Medications No information available. Medications Administered No information available. Allergies, Adverse Reactions, Alerts No information available. Results No information available. Plan of Care No information available. Procedures No information available. Vital Signs No information available. Immunizations No information available. Advance Directives No information available.
--- OUTSIDE RECORDS SUMMARY | 2024-11-28 09:56 | XMS_ITS | Encounter Summary ---
Author Organization Healthcare Address [address] [place] [address] Care Team Providers Care Sausage Grinder Name Role Phone Casimiro Mayo MD Primary Care Provider [phone] Encounter Details Date Type Department Care Team (Late st Contact Info) Description 06/05/2021 [facility] [address] [place] [address] Casimiro Mayo MD [address] [place] [address] Excess skin (Primary Dx) Social [...] Primary documented in this encounter Care Teams Sausage Grinder Relationship Specialty Start Date End Date Casimiro Mayo MD [address] [place] [address] PCP - General 10/02/20 documented as of this encounter
--- OUTSIDE RECORDS SUMMARY | 2024-11-28 09:56 | XMS_ITS | Encounter Summary ---
Author Organization Healthcare Address [address] [place] [address] Care Team Providers Care Bolt Threader Name Role Phone Casimiro Mayo MD Primary Care Provider [phone] Encounter Details Date Type Department Care Team (Late st Contact Info) Description 09/06/2020 Community [facility] [address] [place] [address] Casimiro Mayo MD [address] [place] [address] Social History Tobacco Use Types [...] on filedocumented in this encounter Care Teams Bolt Threader Relationship Specialty Start Date End Date Casimiro Mayo MD [address] [place] [address] PCP - General 10/02/20 documented as of this encounter
--- OUTSIDE RECORDS SUMMARY | 2024-11-28 09:56 | XMS_ITS | Clinical Summary ---
Author Organization Healthcare Address [facility] [place] [address] Care Team Providers Care Customer Service Rep Name Role Phone Casimiro Mayo MD Primary Care Provider [phone] Social History Tobacco Use Types Packs/Day Years [...] of 2 - 13+ 2-dose series) 1994 [facility]- SDOH Screenings 1999 [facility]-Adult SDOH Screenings 1999 [facility]-Hepatitis B Vaccines (1 of 3 - 19+ 3-dose series) 2000 [facility]-Pap Smear 2002 HPV Vaccines (1 - 3-dose SCDM series) 2008 [facility]-Cervical Cancer Screening 2011 [facility]-HPV/Cotest 2011 [facility]-DTaP,Tdap,and Td Vaccines (2 - Td or Tdap) 01/28/2021 01/28/2011, 06/15/2006 [facility]-EYFCD-85 Vaccine ( - season) 2024 [facility]-Influenza Vaccine (#1) 11/07/202402/12, 12/02/2017, 12/05/2016, Additional history exists [facility]-Zoster Vaccines [...] this topic Insurance [employer] Care Teams Customer Service Rep Relationship Specialty Start Date End Date Casimiro Mayo MD [address] [place] [address] PCP - General 10/02/20
--- OUTSIDE RECORDS SUMMARY | 2024-11-28 09:56 | XMS_ITS | Encounter Summary ---
Author Organization [facility] Health Address [address] [place] [address] Care Team Providers Care Drawing Tracer Name Role Phone Unavailable Primary Care Provider Unavailabl e Prior Encounters Date Type Department Care Team Description 07/29/2024 9:00 AM EDT Office Visit [facility] [address] [place] [address] Nick Pavon, DMD 07/29/2024 8:00 AM EDT Office Visit [facility] [address] [place] [address] Ciro Nesbitt, [facility] 07/21/2024 9:30 AM EDT Office Visit [facility] [address] [place] [address] Oni Ga, [facility] 07/21/2024 8:00 AM EDT Office Visit [facility] [address] [place] [address] Edel Howe, DASHA Dental caries, unspecified (Primary Dx); Retained tooth root; Unspecified diseases of pulp and periapical tissues; Encounter for dental examination and cleaning without abnormal findings 04/27/2024 3:00 PM EST Office Visit [facility] [address] [place] [address] Nick Pavon, DASHA Dental caries, unspecified (Primary [...] Care Team (Late st Contact Info) Description 01/27/2025 1:00 PM EST Office Visit [facility] [address] [place] [address] Oni Ga, [facility] [address] [place] [address] 01/27/2025 1:15 PM EST Office Visit [facility] [address] [place] [address] Edel Howe, DMD [address] [place] [address] Procedures Procedure Name Priority Date/Time Associated Diagnosis Comments 13 CEMENT CROWN Routine 07/29/2024 9:00 AM EDT 13 INTRAORIFICE BARRIER Routine 07/30/19 8:00 AM EDT 13 TREATMENT OF ROOT CANAL OBSTRUCTION; NON-SURGICAL ACCESS Routine 07/29/2024 8:00 AM EDT ENDO CONSULT Routine 07/29/2024 8:00 AM EDT NC X-RAY Routine 07/29/2024 8:00 AM EDT 13 PULP VITALITY TESTS Routine 8:00 AM EDT 13 ENDODONTIC THERAPY, PREMOLAR TOOTH (EXCLUDING FINAL SABIANISM) Routine 07/29/2024 8:00 AM EDT ORAL HYGIENE [...]
--- OUTSIDE RECORDS SUMMARY | 2024-11-28 09:56 | XMS_ITS | Clinical Summary ---
Author Organization [facility] Health Address [address] [place] [address] Care Team Providers Care Rod Mill Tender Name Role Phone Unavailable Primary Care Provider Unavailabl e Allergies Active Allergy Reactions Criticality Noted Date Comments Codeine Headache,Hives 08/25/2023 Lisinopril Hives,Swelling 08/25/2023 Morphine Shortness of breath High 08/25/2023 Ondansetron Headache,Itching 03/21/2024 Sertraline 03/21/2024 Medications doxycycline (MONODOX) 100 mg capsule Take 100 mg by mouth 1 (one) time each day. 08/25/2023 Active Active Problems No known active problems Social History Tobacco Use Types Packs/Day Years [...] Description 01/27/2025 1:00 PM EST Office Visit [facility] [address] [place] [address] Oni Ga, RDH [address] [place] [address] 01/27/2025 1:15 PM EST Office Visit [facility] [address] [place] [address] Edel Howe, DMD [address] [place] [address] Health Maintenance Due Date Last Done Comments Dental X-Ray: Panoramic 1981 Periodontal Maintenance 1981 OralFitnessCheck Screening 01/21/2025 07/21/2024 Dental Oral Exam 01/22/2025 07/21/2024 Dental X-Ray: Bitewings 01/22/2025 07/21/2024 Scaling and Root Planing 08/04/2026 025, 07/21/2024, 07/21/2024, Additional history exists Dental CBCT 07/22/2027 07/21/2024 Dental X-Ray: Full Mouth 07/23/2027 07/21/2024, 07/07 Procedures Procedure Name Priority Date/Time Associated Diagnosis Comments UR PERIODONTAL SCALING AND ROOT PLANING - FOUR OR MORE TEETH PER QUADRANT Routine 07/21/2024 9:30 AM EDT [facility] [address] CAPTURE AND INTERPRETATION WITH FIELD OF VIEW OF BOTH JAWS; WITH OR WITHOUT CRANIUM Routine 07/21/2024 8:00 AM EDT ORALFITNESSCHECK INITIAL SCREEN Routine 07/21/2024 8:00 AM EDT COMPREHENSIVE ORAL EVALUATION - NEW OR ESTABLISHED PATIENT Routine 07/21/2024 8:00 AM EDT Encounter for dental examination and cleaning without abnormal findings from Last 3 Months or Most Recently Relevant to Health Maintenance Insurance [employer]
--- OUTSIDE RECORDS SUMMARY | 2024-11-28 09:56 | XMS_ITS | Clinical Summary ---
Author Organization [facility] Address [address] [place] [address] Phone Care Team Providers Care Family Consumer Scientist Name Role Phone Willy Uribe MD Unavailable [phone] Casimiro Mayo MD Primary Care Provider [phone] Allergies Active Allergy Reactions Criticality Noted Date [...] nephropathy, without long-term current use of insulin ([facility]) Pt to test BID per insurance 1 Kit 09/23/19 17 Active Blood Sugar Diagnostic (ACCU-CHEK CAROLINE PLUS TEST STRP) Misc StripIndications: Controlled type 2 diabetes mellitus with diabetic nephropathy, without long-term current use of insulin ([facility]) TEST BLOOD SUGAR PRN FOR SYMPTOMS OF HYPER OR HYPOGLYCEMIA 100 Strip 11 09/23/19 17 Active Lancets (ACCU-CHEK SOFTCLIX LANCETS) Misc MiscIndications:C ontrolled type 2 diabetes mellitus with diabetic nephropathy, without long-term current use of insulin ([facility]) USE TO TEST BLOOD SUGAR 2 TIMES [...] (09/20/2021): Added automatically from request for surgery [id number] Trigger finger, left middle finger 09/20/2021 Overview (09/20/2021): Added automatically from request for surgery [id number] Trigger finger, right middle finger 09/20/2021 Overview (09/20/2021): Added automatically from request for surgery [id number] Trigger finger, right ring finger 09/20/2021 Overview (09/20/2021): Added automatically from request for surgery [id number] 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) 09/20/2021 Overview (09/20/2021): Added automatically from request for surgery [id number] Peripheral tear of lateral m eniscus of left knee as current injury 07/12/2020 Overview (07/12/2020): Added automatically from request for surgery [id number] Hematochezia 12/01/2017 Chest pain 08/29/2017 Weakness generalized [...] RELEASE ; Surgeon: Victoriano Begum MD; Location: [facility]; Service: Hand TONSILLECTOMY AND [...] balloon dilation; Surgeon: Carl Cash MD; Location: [facility]; Service: Endoscopy SHOULDER ARTHROSCOPY 10/20/2017 Shoulder/Right [...] intra-articular injection; Surgeon: Eric Hoffmann MD; Location: [facility]; Service: Orthopedics KNEE JOINT MANIPULATION 07/27/2020 Left LEFT knee exam under anesthesia; arthroscopy partial lateral menisectomy, possible chondroplasty, intra-articular injection; Surgeon: Eric Hoffmann MD; Location: [facility]; Service: Orthopedics FINGER TRIGGER RELEASE 09/25/2021 Hand/Wrist/Bilater al right middle finger and ring finger and left middle finger trigger finger release; Surgeon: Venkata Mcgrath MD; Location: [facility]; Service: Hand CARPAL TUNNEL RELEASE 03/26/2022 Hand/Wrist/Left Left first dorsal compartment release ; Surgeon: Venkata Mcgrath MD; Location: [facility]; Service: Hand CARDIAC CATHETERIZATION ELBOW SURGERY 11/07/2022 Arm/Elbow/Right RIGHT ELBOW LATERAL EPICONDYLE DEBRIDEMENT WITH REPAIR EXTENSOR ORIGIN NIRSCHL; Surgeon: Dylon Marte DO; Location: [facility]; Service: Orthopedics Medical devices from this [...] Date Smoking Tobacco: Every Day Cigarettes 0.5 23 Started: 12/02/2001 Smokeless Tobacco: Never Tobacco Cessation:Ready [...] 10/25/2023 10/24/2022, 10/07, 09/27/2021, Additional history exists Kidney Health: eGFR 03/10/2024 03/10/2023, 10/25/2022, 10/24/2022, Additional history exists COVID-19 Vaccine (2023- season) 2024 Influenza Vaccine (#1) 2024 3, 03/04/2022, 02/13/2020, Additional history exists Pneumococcal Vaccine 0-49 (3 of 3 - PCV20 or PCV21) 2031 12/05/2016, 12/05/2013 Meningococcal B Vaccine Aged Out No ashley [email or web address] eligible based on patient's age to complete this topic Goals Goal Patient Goal Type Associated Problems Recent Progress Patient-Stated? Author Blood Pressure < 140/90 Blood Pressure 155/95(2023 11:34 AM EST) No Staci Teixeira CCMA BMI (Calculated) < 30 General 26.2(03/10/19 9:08 AM EST) No Staci Teixeira CCMA Eat better, exercise, reach an ideal body weight General No Agudelo, Katarina Angela, RMA Stay Tobacco Free Lifestyle No Katarina Agudelo, TRISTAN HEMOGLOBIN A1C < 7.0 Result Component 5.4( 10:38 AM EDT) No Staci TeixeiraPAULCherie Medical Devices Implanted Type Area Consumer Insight Manager Device Identifier Shelf Expiration Date Model / Serial / Lot Healicoil Regenesorb Suture Roggen 5.5mm W/3 Ultrabraid Sutures - [id number] Implanted:Qty: 1 on 10/20/2017 by Scooby Eaton MD at [facility] Right: Shoulder [employer]:ORTHO 02/21/2020 [id number] / / [id number] Roggen Sut Gii Quickanc+ 2.4x8.8mm Pe #2 Orthocord Cp-2 Ndl - [id number] Implanted:Qty: 1 on 11/07/2022 by Dylon Marte DO at [facility] Right: Elbow J[employer]J:ETHICON:MITE K PRDT 04/08/2025 [id number] / / [id number] Explanted Type Area Consumer Insight Manager Device Identifier Shelf Expiration Date Model / Serial / Lot Stent Contour 6 X 24 #[id number] - [id number] Implanted:Qty: 1 on 12/05/2013 by Nadeem Chung MD at [facility] Explanted:Qty: 1 on 12/12/2013 by Trevor Mcclellan MD at [facility] Stent Right: Ureter [employer]:MICROVASIVE: UROLOGY [id number] 09/06/2016 [id number] / / [id number] Procedures Procedure Name Priority Date/Time Associated Diagnosis [...] - 145 mmol/L 03/10/2023 8:47 AM EST [facility] Potassium 2.9(LL) 3.5 - 5.0 mmol/L 03/10/2023 8:47 AM EST [facility] Chloride 100 98 - 107 mmol/L 03/10/2023 8:47 AM EST [facility] Total CO2 26 22 - 29 mmol/L 03/10/2023 8:47 AM EST [facility] Anion Gap 13 7 - 16 mmol/L 03/10/2023 8:47 AM EST [facility] Calcium 9.6 8.6 - 10.4 mg/dL 03/10/2023 8:47 AM EST [facility] Glucose Lvl 120(H) 74 - 100 mg/dL 03/10/2023 8:47 AM EST [facility] BUN 11 6 - 20 mg/dL 03/10/2023 8:47 AM EST [facility] Creatinine 0.55 0.51 - 1.30 mg/dL 03/10/2023 8:47 AM EST [facility] eGFR (CKD-EPIcr 2020) 117 >=60 mL/min/1.7 3 m2 03/10/2023 8:47 AM EST [facility] Comment:Estimated GFR was ca lculated using the CKD-EPIcr (2020) equation refit without race. The equation is recommended by the National Kidney Foundation - [place] Society of Nephrology Task Force. Blood VENOUS BLOOD / Unknown Venipuncture / Unknown 03/10/2023 8:16 AM EST 03/10/2023 8:21 AM EST us Tarun Mixon MD CHEMISTRY ORDERABLES Final Resul t [facility] [address] [place] [address] * HEMOGLOBIN A1C (10/24/2022 10:38 AM EDT) Hgb A1C 5.4 4.2 - 5.6 % 10/24/2022 1:04 PM EDT PREFERRED [facility] Est. Avg Glucose 108 mg/dL 10/24/2022 1:04 PM EDT [facility] Blood VENOUS BLOOD / Unknown Venipuncture / Unknown 10/24/2022 10:38 AM EDT 10/24/2022 11:22 AM EDT Narrative PREFERRED [facility] - 10/24/2022 1:04 PM EDT REFERENCE RANGE: Normal: 4.0-5.6% Pre-diabetes: 5.7-6.4% Provisional diagnosis of diabetes: >6.4% Hgb F>10% and anything which shortens red cell survival, such as hemolytic anemia, or unstable hemoglobin variants such as HbSS, HbSC, or HbCC, will lower the HbA1c value associated with a given level of glycemic control. us Chester Sky MD CHEMISTRY ORDERABLES Final Resul t [facility] [address] [facility] , [place] [address] * (ABNORMAL) LIPID SCREEN (10/24/2022 10:38 AM EDT) Cholesterol 198 <200 mg/dL 10/24/2022 12:28 PM EDT [facility] Comment: < 200 Desirable 200 - 239 Borderline High >= 240 High Triglyceride 103 <150 mg/dL 10/24/2022 12:28 PM EDT [facility] Comment: < 150 Normal 150 - 199 Borderline High 200 - 499 High >= 500 Very High HDL 69 >=40 mg/dL 10/24/2022 12:28 PM EDT [facility] Comment: > 60 Optimal 40 - 60 Acceptable < 40 Low LDL Calculated 111(H) <100 mg/dL 10/24/2022 12:28 PM EDT [facility] Comment: < 100 Optimal 100 - 129 Near or above optimal 130 - 159 Borderline High 160 - 189 High >= 190 Very High Non-HDL-C Calculated 129 <=129 mg/dL 10/24/2022 12:28 PM EDT [facility] Comment: <130 Desirable 130-159 Above Desirable 160-189 Borderline High 190-219 High >= 220 Very High Fasting Specimen? No None 023 12:28 PM EDT [facility] Blood VENOUS BLOOD / Unknown Venipuncture / Unknown 10/24/2022 10:38 AM EDT 10/24/2022 11:22 AM EDT us Chester Sky MD CHEMISTRY ORDERABLES Final Resul t Performing Organization Address [facility] Co de Phone Number [facility] [address] [place] [address], [place] [address] [facility] [address] [place], [place] [id number] * GMED COLONOSCOPY (12/16/2017 8:00 AM EDT) 12/16/2017 8:00 AM EDT Impressions [facility] - 12/16/2017 8:45 AM EDT Normal mucosa in the terminal ileum. Normal mucosa in the whole colon. (Biopsy). Polyp (10 mm) in the proximal sigmoid colon. (Polypectomy). Diverticulosis of the sigmoid colon. Internal hemorrhoids. Plan: Await pathology results This section is an excerpt of the full report. us Bhanu Gibbs MD GI PROCEDURE ORDERABLES Final R esult Performing Organization Address [facility] Co de Phone Number [facility] [address] [place], [place] [id number] * MICROALBUMIN/CREATININE RATIO URINE (01/23/2016 8:57 AM EST) Urine Microalb 12.7 mg/L [facility] Urine Creatinine 236.2 mg/dL [facility] Ur Microalb/Creat See Footnote 0 - 30 [facility] Comment:Unable to calculate due to value outside linearity. Urine specimen (specimen) STRUCTURE OF URINARY TRACT PROPER / Unknown 01/23/2016 8:57 AM EST 01/23/2016 5:17 PM EST Kandy Fajardo PA-C URINE ORDERABLES E dited Result - Final [facility] [address] [place] [address] from Last 3 Months or Most Recently Relevant to Health Maintenance [place] [id number] [facility] [place] [address] [place] [id number] [place] [facility] [place] [address] [facility] [place] [address] [facility] [place] [address] MDR Advance Directives For more information, please contact: [phone] * Full Code (Latest Code Status on [...] 2:23 PM 12/06/2016 1:04 AM Care Teams Family Consumer Scientist Relationship Specialty Start Date End Date Casimiro Mayo MD [address] [facility] [address] [place] [id number] PCP - General Emergency Medicine 10/24/22 Willy Uribe MD [address] [id number] Physician Anesthesiology-Pain Medicine 11/16/13
--- OUTSIDE RECORDS SUMMARY | 2024-11-28 09:56 | XMS_ITS | Encounter Summary ---
Author Organization Healthcare Address [address] [place] [address] Care Team Providers Care Stave Cutting Supervisor Name Role Phone Casimiro Mayo MD Primary Care Provider [phone] Encounter Details Date Type Department Care Team (Late st Contact Info) Description 09/14/2020 Community [facility] [address] [place] [address] Casimiro Mayo MD [address] [place] [address] Excess skin (Primary Dx) Social [...] Primary documented in this encounter Care Teams Stave Cutting Supervisor Relationship Specialty Start Date End Date Casimiro Mayo MD [address] [place] [address] PCP - General 10/02/20 documented as of this encounter
== END 2024-11-25 23:59 ==
LOC: LAB.DROPOF 11-28 09:42
PROVIDERS: PCP Family Medicine; Visit Provider Family Medicine
DX: E11.8 Type 2 diabetes mellitus with unspecified complications (principal)
CPT/HCPCS: 80053; 83036

== ENCOUNTER 2025-02-24 09:16 | Outpatient (CLI) | payer OTHER, MEDICAID, SELFPAY ==
--- OUTSIDE RECORDS SUMMARY | 2025-01-09 13:30 | XMS_ITS | Encounter Summary ---
Author Organization [place] [address] Care Team Providers Care Night Shift Name Role Phone Willy Uribe MD Unavailable [phone] Casimiro Mayo MD Primary Care Provider [phone] Reason for Visit * Reason Comments Hemorrhoids Encounter Details Date Type Department Care Team (Late st Contact Info) Description 01/09/2025 1:30 PM EST Office Visit [facility] [address] [facility] [address] [place] [address] Morgan Iyer MD [address] [facility] [address] [place], [place] [id number] Thrombosed hemorrhoids (Primary Dx) Social History Tobacco Use Types Packs/Day Years Used Date Smoking Tobacco: Every Day Cigarettes 0.5 23.2 Started: 12/02/2001 Smokeless Tobacco: Never Tobacco Cessation:Ready to Q uit: No; Counseling Given: Yes Alcohol Use Standard Drinks/Week Comments Yes 21 [...] Sign Reading Time Taken Comments Blood Pressure 132/82 01/09/2025 1:36 PM EST Pulse 75 01/09/2025 1:36 PM EST Temperature 36.3 C (97.3 F) 01/09/2025 1:36 PM EST Respiratory Rate - - Oxygen Saturation - - Inhaled Oxygen Concentration - - Weight 76.2 kg (168 lb) 01/09/2025 1:36 PM EST Height 170.2 cm (5' 7 ) 01/09/2025 1:36 PM EST Body Mass Index 26.31 01/09/2025 1:36 PM EST documented in this encounter Functional Status * Is the person deaf or does he/she have serious difficulty hearing? Answer Date of Assessment Author No 12/05/2016 6:44 PM EDT Trang Bae RN * Is the person blind or does he/she have serious difficulty seeing even when wearing glasses? Answer Date of Assessment Author No 12/05/2016 6:44 PM EDT Trang Bae RN * Does this person have serious difficulty walking or climbing stairs? Answer Date of Assessment Author No 12/05/2016 6:44 PM Trang Triplett RN * Does this person have difficulty dressing or bathing? Answer Date of Assessment Author No 12/05/2016 6:44 PM EDTrang Gotti RN * Because of a physical, mental or emotional condition, does this person have difficulty doing errands alone such as visiting a doctor's office or shopping? Answer Date of Assessment Author No 12/05/2016 6:44 PM EDTrang Gotti RN documented as of this encounter Mental Status * Because of a physical, mental or emotional condition, does this person have serious difficulty concentrating, remembering or making decisions? Answer Entry Date Author No 12/05/2016 6:44 PM Trang Triplett RN documented in this encounter Ordered Prescriptions Prescription Sig Dispense Quantity Refills Last Filled Start Date End Date lidocaine (XYLOCAINE) 2 % MM jellyIndications:T hrombosed hemorrhoids Apply topically as needed. 30 mL 01/09/2025 documented in this encounter Progress Notes * Morgan Iyer MD - 01/09/2025 1:30 PM EST Subjective: We have been asked by Dr. Shah to provide initial consultation on [facility] History of Present Illness The patient is a 44 y.o. female who presents with a complaint of hemorrhoids. Symptoms started 1 week ago. Reports rectal pain. Also notes pain before/after bowel movements. No bleeding or drainage. Has attempted Preparation H and lidocaine jelly with minimal relief. Admits to soft stools. No fiber supplement. HPI Past Medical History[1] Patient Active Problem List Diagnosis Date Noted Chest pain, unspecified type 10/23/2022 Partial tear of common extensor tendon of right elbow 10/15/2022 Lateral epicondylitis of right elbow 10/15/2022 Acute pain of left knee 07/17/2022 Left wrist pain 09/20/2021 Trigger finger, left middle finger 09/20/2021 Trigger finger, right middle finger 09/20/2021 Trigger finger, right ring finger 09/20/2021 De Quervain's disease (radial styloid tenosynovitis) 09/20/2021 Peripheral tear of lateral meniscus of left knee as current injury 07/12/2020 Hematochezia 12/01/2017 Chest pain 08/29/2017 Weakness generalized 08/29/2017 Syncope 08/29/2017 Muscle spasms of both lower extremities 01/19/2017 Acute right-sided low back pain with right-sided sciatica 12/02/2016 Hypokalemia 09/18/2015 Tiredness 10/24/2014 Snoring 10/24/2014 Obesity, Class III, BMI 40-49.9 (morbid obesity) (HCC) 10/24/2014 AR (allergic rhinitis) 06/27/2014 Vitamin D deficiency 03/01/2014 Diabetes mellitus type 2 in obese 02/21/2014 B12 deficiency Mood disorder Anxiety Anxiety and depression Depression Hyperlipidemia Tobacco abuse Kidney stones CTS (carpal tunnel syndrome) 05/12/2012 Surgical History[2] Family History[3] Social History Tobacco Use Smoking status: Every Day Current packs/day: 0.25 Average packs/day: 0.5 packs/day for 23.1 years (10.9 ttl pk-yrs) Types: Cigarettes Start date: 12/02/2001 Smokeless tobacco: Never Substance Use Topics Alcohol use: Yes Alcohol/week: 12.6 oz Types: 21 Shots of liquor per week Comment: per week Medications Taking[4] Allergies[5] Review of Systems Constitutional: Positive for activity change and fatigue. Negative for chills and fever. Eyes: Positive for visual disturbance (glasses). Gastrointestinal: Positive for rectal pain. Negative for anal bleeding, blood in stool, constipation, diarrhea, nausea and vomiting. Skin: Positive for color change. All other systems reviewed and are negative. Objective: There were no vitals filed for this visit.There is no height or weight on file to calculate BMI. Physical Exam Vitals reviewed. Constitutional: Appearance: She is well-developed. HENT: Head: Normocephalic. Eyes: Pupils: Pupils are equal, round, and reactive to light. Cardiovascular: Rate and Rhythm: Normal rate and regular rhythm. Abdominal: General: Bowel sounds are normal. Palpations: Abdomen is soft. Genitourinary: Rectum: External hemorrhoid and internal hemorrhoid present. Comments: Thrombosed external/internal hemorrhoid Musculoskeletal: Cervical back: Normal range of motion and neck supple. Skin: General: Skin is warm and dry. Neurological: Mental Status: She is alert and oriented to person, place, and time. Psychiatric: Behavior: Behavior normal. Thought Content: Thought content normal. Assessment & Plan Thrombosed hemorrhoids Recommended daily fiber supplement to assist with bowel regulation. Should do daily sitz baths. Uselidocaine jelly as needed for pain relief. Discontinue use of steroidal creams. Hemorrhoidectomy will be reserved if symptoms persist despite non-operative treatment. Return 1 week. Note written by Staci Hill MA , acting as scribe for Morgan Iyer MD. ???I have reviewed this note and it accurately reflects my work and decisions made during this visit.?? Morgan Iyer MD [1] Past Medical History: Diagnosis Date Acid reflux Acute stomach ulcer Anemia Angina pectoris (HCC) hospitalized in Oct 2022 for chest pain, had cardiac workup at that time Anxiety Arthritis B12 deficiency in the past Back pain taking percocet Bipolar disorder ([facility]) CAD (coronary artery disease) non obstructive CAD on cardiac cath from 10/25/22 Chest pain 03/18/2022 chest pain and some SOB lasting a few minutes 03/18/2022, her S.O. 03/2022, she was talking to S.O. son and was very upset at the time she had chest pain CHF (congestive heart failure) ([facility]) DDD (degenerative disc disease), lumbar Depression in the past only Diabetes mellitus ([facility]) type II Edema hands and feet off and on, takes lasix prn Fatty liver Gestational diabetes X5 Hyperlipidemia Hypertension no issues since weight loss Hypokalemia Irregular heart beat Kidney stones has had multiple Lab test positive for detection of COVID-19 virus 01/11/2020 Lumbar herniated disc x2 Migraines hx of Motion sickness on boats Near syncope 10/07/2021 and 08/07/2020 due to hypokalemia Obesity Pneumonia yearly bouts in the past Post-operative nausea and vomiting RLS (restless legs syndrome) Slow to wake up after anesthesia wakes up mean also Syncope 05/01/2019 and 11/2017 due to hypokalemia Tobacco abuse down to 1-2 cigarettes daily [2] Past Surgical History: Procedure Laterality Date CARDIAC CATHETERIZATION CARPAL TUNNEL RELEASE 05/12/2012 BILATERAL CARPAL TUNNEL RELEASE ; Surgeon: Victoriano Begum MD; Location: [facility] MAIN OR; Service: Hand CARPAL TUNNEL RELEASE Left 03/26/2022 Left first dorsal compartment release ; Surgeon: Venkata Mcgrath MD; Location: [facility]; Service: Hand CHOLECYSTECTOMY COLONOSCOPY 12/16/2017 CYSTOSCOPY Right 12/05/2013 CYSTOSCOPY, RIGHT RETROGRADE, URETEROSCOPY, HOLMIUM LASER STONE MANIPULATION, STONE EXTRACTION, RIGHT URETERAL STENT PLACEMENT; Surgeon: Nadeem Chung MD; [facility]; Service: Urology CYSTOSCOPY 12/05/2013 Surgeon: Nadeem Chung MD; [facility]; Service: Urology CYSTOSCOPY Right 12/12/2013 CYSTOSCOPY RIGHT STENT REMOVAL; Surgeon: Trevor Mcclellan MD; Location: [facility] MAIN OR; Service: Urology ELBOW SURGERY Right 11/07/2022 RIGHT ELBOW LATERAL EPICONDYLE DEBRIDEMENT WITH REPAIR EXTENSOR ORIGIN NIRSCHL; Surgeon: Dylon Marte DO; Location: [facility]; Service: Orthopedics FINGER TRIGGER RELEASE Bilateral 09/25/2021 right middle finger and ring finger and left middle finger trigger finger release; Surgeon: Venkata Mcgrath MD; Location: [facility]; Service: Hand HYSTERECTOMY complete KNEE ARTHROSCOPY Left 07/27/2020 LEFT knee exam under anesthesia; arthroscopy partial lateral menisectomy, chondroplasty, intra-articular injection; Surgeon: Eric Hoffmann MD; Location: [facility]; Service: Orthopedics KNEE JOINT MANIPULATION Left 07/27/2020 LEFT knee exam under anesthesia; arthroscopy partial lateral menisectomy, possible chondroplasty, intra-articular injection; Surgeon: Eric Hoffmann MD; Location: [facility]; Service: Orthopedics SHOULDER ARTHROSCOPY Right 10/20/2017 RIGHT SHOULDER ARTHROSCOPY ROTATOR CUFF REPAIR ARTHROSCOPIC SUBACROMIAL DECOMPRESSION WITH ACROMIOPLASTY. BICEPS TENOTOMY. LABRAL DEBRIDEMENT.; Surgeon: Scooby Eaton MD; Location: [facility] MAIN OR; Service: Orthopedics SLEEVE GASTROPLASTY gastric sleeve in 2019 TONSILLECTOMY AND ADENOIDECTOMY TUBAL LIGATION UPPER GASTROINTESTINAL ENDOSCOPY N/A 08/31/2017 ESOPHAGOGASTRODUODENOSCOPY with biopsy and balloon dilation; Surgeon: Carl Cash MD; Location: [facility]; Service: Endoscopy [3] Family History Problem Relation Age of Onset Diabetes Mother Urolithiasis Mother Thyroid Disease Mother Allergies Mother Migraines Mother Diabetes Father Bipolar Disorder Father Heart Attack Father Heart Disease Father CABG Kidney Disease Sister Diabetes Brother Breast Cancer Maternal Aunt Breast Cancer Maternal Aunt Heart Attack Maternal Uncle 53 X2 Lung Cancer Paternal Uncle No Known Problems Maternal Grandmother Heart Attack Maternal Grandfather Urolithiasis Maternal Grandfather Cancer Maternal Grandfather unknown No Known Problems Paternal Grandmother Anesth Problems Neg Hx [4] No outpatient medications have been marked as taking for the 01/09/25 encounter (Appointment) with Morgan Iyer MD. [5] Allergies Allergen Reactions Lisinopril Swelling Angioedema Morphine Swelling Quit breathing Codeine Hives Darvocet A500 [Propoxyphene N-Acetaminophen] Hives Vicodin [Hydrocodone-Acetaminophen] Nausea And Vomiting Zofran [Ondansetron Hcl] Hives Hives and headache Zoloft [Sertraline] Other (See Comments) Bad headaches documented in this encounter Miscellaneous Notes * Patient Instructions - Staci Hill MA - 01/09/2025 1:30 PM EST Take a daily fiber supplement. Use lidocaine jelly as needed for pain. Do a daily sitz bath at least twice a day. You may be contacted by mail, e-mail or by text message to participate in a patient satisfaction survey regarding your office visit today. We value your opinion and depend on your feedback to make improvements and provide you with the best possible experience while receiving high quality medical treatment. Your time in completing this survey is greatly appreciated. As with most of these types of surveys, only the top box score is regarded as positive feedback. If you find you cannot score us in the top box we would rather you call the office at [phone] and speak with our management team so we may know how to improve. documented in this encounter Plan of Treatment Upcoming Encounters Date Type Department Care Team (Late st Contact Info) Description 05/10/2025 10:30 AM EST [facility] [address] [place] [address] Tiffanie Lord MD [address] [place] [address] documented as of this encounter Goals Goal Patient Goal Type Associated Problems Recent Progress Patient-Stated? Author Blood Pressure < 140/90 Blood Pressure 132/82(2024 1:36 PM EST) No Staci Teixeira CCMA BMI (Calculated) < 30 General 26.4(01/10/20 1:36 PM EST) No Staci Teixeira CCMA Eat better, exercise, reach an ideal body weight General No Katarina Agudelo RMA Stay Tobacco Free Lifestyle No Katarina Agudelo RMA HEMOGLOBIN A1C < 7.0 Result Component 5.4( 10:38 AM EDT) No Staci Teixeira CCMA documented as of this encounter Visit Diagnoses Diagnosis Thrombosed hemorrhoids- Primary Unspecified thrombosed hemorrhoids documented in this encounter Historical Medications * This list may reflect changes made after this encounter. oxyCODONE-aceta minophen (PERCOCET) 10-325 mg Oral Tablet 1 Tablet every 6 hours as needed. 12/29/2024 MOUNJARO 10 mg/0.5 mL SubQ Pen Injector INJECT 1 PEN-INJECTOR SUBCUTANEOUSLY ONCE A WEEK 12/11/2024 added in this encounter Care Teams Night Shift Relationship Specialty Start Date End Date Casimiro Mayo MD [address] [place] [address] [place] [id number] PCP - General Emergency Medicine 10/24/22 Willy Uribe MD [address] [id number] Physician Anesthesiology-Pain Medicine 11/16/13 documented as of this encounter
[2025-02-24 14:57] LABS: Hematocrit 40.1 % (37.0-47.0); Hemoglobin 13.1 g/dL (12.2-16.2); Immature Granulocytes % 0.2 %; Mean Corpuscular HGB Conc 32.7 g/dL (31.8-35.4); Mean Corpuscular Hemoglobin 29.0 pg (27.0-31.2); Mean Corpuscular Volume 88.7 fl (81-99); Nucleated Red Blood Cells % 0 %; Platelet Count 290 K/mm3 (142-424); Red Blood Count 4.52 M/mm3 (4.20-5.40); Red Cell Distribution Width-SD 44.3 fL; White Blood Count 6.2 K/mm3 (4.8-10.8)
[2025-02-24 15:12] LABS: Alanine Aminotransferase 22 U/L (12-78); Albumin Level 4.7 g/dl (3.5-5.0); Albumin/Globulin Ratio 1.6 (1.1-1.8); Alkaline Phosphatase 84 U/L (38-126); Anion Gap 11.3 mEq/L (5-15); Aspartate Amino Transferase 28 U/L (14-36); Bilirubin,Total 0.5 mg/dl (0.2-1.3); Blood Urea Nitrogen 17 mg/dl (7-17); Calcium 9.8 mg/dl (8.4-10.2); Carbon Dioxide 30 mmol/L (22.0-30.0); Chloride 103 mmol/L (98-107); Cholesterol 186 mg/dl (140-200); Creatinine,Serum 0.70 mg/dl (0.52-1.04); Estimated Glomerular Filt Rate 91 ml/min (>60); GFR (African American) 111 ML/MIN (>60); Globulin 2.9 g/dL (1.3-3.2); Glucose 84 mg/dl (74-100); HDL Cholesterol 51 mg/dl (40-60); Potassium 4.3 mmoL/L (3.5-5.1); Sodium 140 mmol/L (136-145); Total Protein,Serum 7.6 g/dl (6.3-8.2); Triglycerides 139 mg/dl (30-150)
[2025-02-24 16:02] LABS: Vitamin B12 760 pg/mL (239-931)
[2025-02-24 17:20] LABS: Hemoglobin A1C 5.0 % (4.0-6.0)
--- OUTSIDE RECORDS SUMMARY | 2025-02-25 09:42 | XMS_ITS | Encounter Summary ---
Author Organization [facility] Address [address] [place] [address] Care Team Providers Care Stonecutter Name Role Phone Unavailable Primary Care Provider Unavailabl e Prior Encounters Date Type Department Care Team Description 07/29/2024 9:00 AM EDT Office Visit [facility] [address] [place] [address] Nick Pavon, DMD 07/29/2024 8:00 AM EDT Office Visit [facility] [address] [place] [address] Ciro Nesbitt, [facility] 07/21/2024 9:30 AM EDT Office Visit [facility] [address] [place] [address] Oni Ga, [facility] 07/21/2024 8:00 AM EDT Office Visit [facility] [address] [place] [address] Edel Howe, DASHA Dental caries, unspecified (Primary Dx); Retained tooth root; Unspecified diseases of pulp and periapical tissues; Encounter for dental examination and cleaning without abnormal findings 04/27/2024 3:00 PM EST Office Visit [facility] [address] [place] [address] Nick Pavon, DASHA Dental caries, unspecified (Primary Dx) Last Filed Vital Signs Vital Sign Reading Time Taken Comments Blood Pressure 138/82 07/29/2024 8:03 AM EDT Pulse 69 07/29/2024 8:03 AM EDT Temperature - - Respiratory Rate - - Oxygen Saturation - - Inhaled Oxygen Concentration - - Weight - - Height - - Body Mass Index - - Plan of Treatment Not on file Procedures Procedure Name Priority Date/Time Associated Diagnosis [...] 13 ENDODONTIC THERAPY, PREMOLAR TOOTH (EXCLUDING FINAL ANABAPTISM) Routine 07/29/2024 8:00 AM EDT ORAL HYGIENE [...] RESULTED Routine 07/21/2024 8:32 AM EDT INHALATION ADMINISTRATION OF NITROUS OXIDE/ANALGESIA, ANXIOLYSIS Routine 07/21/2024 8:00 [...] / Unknown 07/21/2024 8:32 AM EDT Edel Hoew DMD PDS [facility] Fin al Result Visit Diagnoses Diagnosis Start Date Dental caries, unspecified 04/27/2024 Dental caries, unspecified 07/21/2024 Retained tooth root Retained dental root 07/21/2024 Unspecified diseases of pulp and periapical tissues 07/21/2024 Encounter for dental examination and cleaning without abnormal findings 07/21/2024 Insurance [employer]
--- OUTSIDE RECORDS SUMMARY | 2025-02-25 09:42 | XMS_ITS | Encounter Summary ---
Author Organization Healthcare Address [address] [place] [address] Care Team Providers Care Environmental Services Director Name Role Phone Casimiro Mayo MD Primary Care Provider [phone] Encounter Details Date Type Department Care Team (Late st Contact Info) Description 09/14/2020 Community [facility] [address] [place] [address] Casimiro Mayo MD [address] [place] [address] Excess skin (Primary Dx) Social [...] Primary documented in this encounter Care Teams Environmental Services Director Relationship Specialty Start Date End Date Casimiro Mayo MD [address] [place] [address] PCP - General 10/02/20 documented as of this encounter
--- OUTSIDE RECORDS SUMMARY | 2025-02-25 09:42 | XMS_ITS | Encounter Summary ---
Author Organization Healthcare Address [address] [place] [address] Care Team Providers Care Chin Strap Maker Name Role Phone Casimiro Mayo MD Primary Care Provider [phone] Encounter Details Date Type Department Care Team (Late st Contact Info) Description 09/06/2020 Community [facility] [address] [place] [address] Casimiro Mayo MD [address] [place] [address] Social History Tobacco Use Types [...] on filedocumented in this encounter Care Teams Chin Strap Maker Relationship Specialty Start Date End Date Casimiro Mayo MD [address] [place] [address] PCP - General 10/02/20 documented as of this encounter
--- OUTSIDE RECORDS SUMMARY | 2025-02-25 09:42 | XMS_ITS | Encounter Summary ---
Author Organization Healthcare Address [address] [place] [address] Care Team Providers Care Continuity Person Name Role Phone Casimiro Mayo MD Primary Care Provider [phone] Encounter Details Date Type Department Care Team (Late st Contact Info) Description 06/05/2021 Community [facility] [address] [place] [address] Casimiro Mayo MD [address] [place] [address] Excess skin (Primary Dx) Social [...] Primary documented in this encounter Care Teams Continuity Person Relationship Specialty Start Date End Date Casimiro Mayo MD [address] [place] [address] PCP - General 10/02/20 documented as of this encounter
--- OUTSIDE RECORDS SUMMARY | 2025-02-25 09:42 | XMS_ITS | Clinical Summary ---
Author Organization [facility] Health Address [address] [place] [address] Care Team Providers Care Cloth Calender Name Role Phone Unavailable Primary Care Provider [...] Mass Index - - Plan of Treatment Health Maintenance Due Date [...]
--- OUTSIDE RECORDS SUMMARY | 2025-02-25 09:42 | XMS_ITS | Clinical Summary ---
Author Organization Healthcare Address [facility] [place] [address] Care Team Providers Care Ese Teacher Name Role Phone Casimiro Mayo MD Primary Care Provider [phone] Social History Tobacco Use Types Packs/Day Years [...] - Td or Tdap) 01/28/2021 01/28/2011, 06/15/2006 [id number] Vaccine ( - 2024- season) 2024 [facility]-Influenza Vaccine (#1) 11/07/202402/12, 12/02/2017, 12/05/2016, Additional history exists [facility]-Zoster Vaccines (1 of 2) 2031 [facility]-Pneumococcal Vaccine: Pediatrics (0 to 5 Years) and At-Risk Patients (6 to 49 Years) Aged Out 12/05/2016, 12/05/2013 No longer eligibl e based on patient's age to complete this topic HPV Vaccines (No Doses Required) Completed [facility]-HIB Vaccines Aged Out No longer e [...] this topic Insurance [employer] Care Teams Ese Teacher Relationship Specialty Start Date End Date Casimiro Mayo MD [address] [place] [address] PCP - General 10/02/20
--- OUTSIDE RECORDS SUMMARY | 2025-02-25 09:43 | XMS_ITS | Clinical Summary ---
Author Organization [facility] Address [address] [place] [address] Phone Care Team Providers Care Supervisor Specialty Plant Name Role Phone Willy Uribe MD Unavailable [phone] Casimiro Mayo MD Primary Care Provider [phone] Allergies Active Allergy Reactions Criticality Noted Date [...] nephropathy, without long-term current use of insulin ([facility]) Pt to test BID per insurance 1 Kit 09/23/19 17 Active Blood Sugar Diagnostic (ACCU-CHEK CAROLINE PLUS TEST STRP) Misc StripIndications: Controlled type 2 diabetes mellitus with diabetic nephropathy, without long-term current use of insulin ([facility]) TEST BLOOD SUGAR PRN FOR SYMPTOMS OF HYPER OR HYPOGLYCEMIA 100 Strip 11 09/23/19 17 Active Lancets (ACCU-CHEK SOFTCLIX LANCETS) Misc MiscIndications:C ontrolled type 2 diabetes mellitus with diabetic nephropathy, without long-term current use of insulin ([facility]) USE TO TEST BLOOD SUGAR 2 TIMES DAILY 100 Each 11 09/23/19 Active potassium chloride SA (K-DUR;KLOR-CON) 20 mEq [...] Take 3 mg by mouth nightly. 12/10/19 Active gabapentin (NEURONTIN) 600 mg Oral Tablet Take 600 mg by mouth nightly. 03/04/20 Active omeprazole (PRILOSEC) 20 mg Oral Capsule, Delayed Release(E.C.) Take 1 Capsule by mouth every morning (before breakfast). 30 Capsule 06/30/19 Active clonazePAM (KLONOPIN) 0.5 mg Oral Tablet Take 0.5 mg by mouth nightly. Active metFORMIN (GLUCOPHAGE) 500 mg Oral Tablet Take 1 Tablet by mouth 2 times daily. 10/27/19 Active fUROsemide (LASIX) 40 mg Oral Tablet Take 1 Tablet by mouth 2 times daily as needed (edema). 10/26/19 Active atorvastatin (LIPITOR) 40 mg Oral Tablet Take 1 Tablet by mouth nightly. 30 Tablet 12:09 PM EDT 10/26/19 Active OZEMPIC 1 mg/dose (4 mg/3 mL) SubQ Pen Injector once a week. 11/02/19 Active losartan (COZAAR) 25 mg Oral Tablet 25 mg every morning. 07/12/19 Active multivit-min/ferr ous fumarate (MULTI VITAMIN ORAL) Take by mouth daily. Active oxyCODONE (ROXICODONE) 5 mg Oral TabletIndications :Lateral epicondylitis of right elbow,Partial tear of common extensor tendon of right elbow Take 2 Tablets by mouth every 4 hours as needed for Major Surgery/Trauma (G89.18). 50 Tablet 11/08/19 Active Additional Information Patient not taking.Reported on 01/09/2025 MOUNJARO 10 mg/0.5 mL SubQ Pen Injector INJECT 1 PEN-INJECTOR SUBCUTANEOUSLY ONCE A WEEK 10/05/20 25 Active oxyCODONE-acetami nophen (PERCOCET) 10-325 mg Oral Tablet 1 Tablet every 6 hours as needed. 12/30/19 25 Active lidocaine (XYLOCAINE) 2 % MM jellyIndications: Thrombosed hemorrhoids Apply topically as needed. 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 12/2014 Obesity 05/28/2016 Encounters Date Type Department Care Team Description 01/09/2025 1:30 PM EST Office Visit [facility] [address] [facility] [address] [place] [id number] Morgan Iyer MD Thrombosed hemorrhoids (Primary Dx) from Last 3 Months Immunizations Immunization Administration Dates Next Due Influenza Seasonal Injectable PF 12/05/2013 Influenza Vaccine Quadrivalent PF 12/02/2017, Pneumococcal Conjugate Vaccine 13 Valent 017 Pneumococcal Polysaccharide 23 Valent 12/05/2013 Tdap 01/28/2011 Surgical History Surgery Date Site/Laterality Comments CHOLECYSTECTOMY TUBAL LIGATION CARPAL TUNNEL RELEASE 05/12/2012 Wrist/Bilateral BILATERAL CARPAL TUNNEL RELEASE ; Surgeon: Victoriano Begum MD; Location: [facility] MAIN OR; Service: Hand TONSILLECTOMY AND ADENOIDECTOMY CYSTOSCOPY 12/05/2013 Ureter/Right CYSTOSCOPY, RIGHT RETROGRADE, URETEROSCOPY, HOLMIUM LASER STONE MANIPULATION, STONE EXTRACTION, RIGHT URETERAL STENT PLACEMENT; Surgeon: Nadeem Chung MD; Location: [facility] MAIN OR; Service: Urology Medical devices from this surgery are in the Medical Devices section. CYSTOSCOPY 12/05/2013 Surgeon: Nadeem Chung MD; Location: [facility]; Service: Urology Medical devices from this surgery are in the Medical Devices section. CYSTOSCOPY 12/12/2013 Right CYSTOSCOPY RIGHT STENT REMOVAL; Surgeon: Trevor Mcclellan MD; Location: [facility]IN OR; Service: Urology Medical devices from this surgery are in the Medical Devices section. UPPER GASTROINTESTINAL ENDOSCOPY 08/31/2017 N/A ESOPHAGOGASTRODUODENOSCOP Y with biopsy and balloon dilation; Surgeon: Carl Cash MD; Location: [facility]; Service: Endoscopy SHOULDER ARTHROSCOPY 10/20/2017 Shoulder/Right RIGHT SHOULDER ARTHROSCOPY ROTATOR CUFF REPAIR ARTHROSCOPIC SUBACROMIAL DECOMPRESSION WITH ACROMIOPLASTY. BICEPS TENOTOMY. LABRAL DEBRIDEMENT.; Surgeon: Scooby Eaton MD; Location: [facility] OR; Service: Orthopedics Medical devices from this surgery are in the Medical Devices section. SLEEVE GASTROPLASTY gastric sleeve in 2019 HYSTERECTOMY complete COLONOSCOPY 12/16/2017 KNEE ARTHROSCOPY 07/27/2020 Left LEFT knee exam under anesthesia; arthroscopy partial lateral menisectomy, chondroplasty, intra-articular injection; Surgeon: Eric Hoffmann MD; Location: [facility]; Service: Orthopedics KNEE JOINT MANIPULATION 07/27/2020 Left LEFT knee exam under anesthesia; arthroscopy partial lateral menisectomy, possible chondroplasty, intra-articular injection; Surgeon: Eric Hoffmann MD; Location: [facility]; Service: Orthopedics FINGER TRIGGER RELEASE 09/25/2021 Hand/Wrist/Bilater al right middle finger and ring finger and left middle finger trigger finger release; Surgeon: Venkata Mcgrath MD; Location: [facility]; Service: Hand CARPAL TUNNEL RELEASE 03/26/2022 Hand/Wrist/Left Left first dorsal compartment release ; Surgeon: Venkata Mcgrath MD; Location: [facility]; Service: Hand CARDIAC CATHETERIZATION ELBOW SURGERY 11/07/2022 Arm/Elbow/Right RIGHT ELBOW LATERAL EPICONDYLE DEBRIDEMENT WITH REPAIR EXTENSOR ORIGIN NIRSCHL; Surgeon: Dylon Marte DO; Location: [facility]; Service: Orthopedics Medical devices from this [...] F) 01/09/2025 1:36 PM EST Respiratory Rate 18 03/10/2023 10:18 AM EST Oxygen Saturation 99% 03/10/2023 11:34 AM EST Inhaled Oxygen Concentration - - Weight 76.2 kg (168 lb) 01/09/2025 1:36 PM EST Height 170.2 cm (5' 7 ) 01/09/2025 1:36 PM EST Body Mass Index 26.31 01/09/2025 1:36 PM EST Plan of Treatment Upcoming Encounters Date Type Department Care Team (Late st Contact Info) Description 05/10/2025 10:30 AM EST Office Visit [facility] [address] [place] [address] Tiffanie Lord MD [address] [place] [phone] Health Maintenance Due Date Last Done Comments Diabetic Eye Exam 1999 Hepatitis B Vaccine (1 of 3 - 19+ 3-dose series) 2000 HPV/Pap Cotest 2011 Annual Wellness Exam 01/22/2017 01/23/2016, 03/14/2014 (Postponed) Kidney Health: uACR 01/22/2017 01/23/2016, 4 Cervical Cancer Screening 03/14/2017 Pap Smear 03/14/2017 03/14/2014 (Postponed) Colon Cancer Screening 12/16/2020 Colonoscopy 12/16/2020 12/16/2017 Breast Cancer Screening 2021 Kidney Health: eGFR 03/10/2024 03/10/2023, 10/25/2022, 10/24/2022, Additional history exists COVID-19 Vaccine (2024- season) 2024 Influenza Vaccine (#1) 2024 , 01/27/2023, 03/04/2022, Additional history exists Hemoglobin A1c 05/25/2025 11/25/2024, 08/08, 02/23/2024, Additional history exists Lipids 08/26/2025 08/26/2024, 02/06, 09/29/2023, Additional history exists Pneumococcal Vaccine 0-49 (3 of 3 - PCV20 or PCV21) 2031 12/05/2016, 12/05/2013 DTaP/TDaP/Td (3 - Td or Tdap) 08/24/2033 08/25/2023, 01/28/2011, 06/15/2006 Meningococcal B Vaccine Aged Out No l [...] [facility] [employer] Medical Devices Implanted Type Area Plastic Sheets Finishing Supervisor Device Identifier Shelf Expiration Date Model / Serial / Lot Healicoil Regenesorb Suture [place]ora 5.5mm W/3 Ultrabraid Sutures - [id number] Implanted:Qty: 1 on 10/20/2017 by Scooby Eaton MD at [facility] Right: Shoulder [employer]:ORTHO 02/21/2020 [id number] / / [id number] [place]ora Sut Gii Quickanc+ 2.4x8.8mm Pe #2 Orthocord Cp-2 Ndl - [id number] Implanted:Qty: 1 on 11/07/2022 by Dylon Marte DO at [facility] Right: Elbow J[employer]:ETHICON:MITE K PRDT 04/08/2025 [id number] / / [id number] Explanted Type Area Plastic Sheets Finishing Supervisor Device Identifier Shelf Expiration Date Model / Serial / Lot Stent Contour 6 X 24 #[id number] - [id number] Implanted:Qty: 1 on 12/05/2013 by Nadeem Chung MD at [facility] Explanted:Qty: 1 on 12/12/2013 by Trevor Mcclellan MD at [facility] Stent Right: Ureter [employer]:MICROVASIVE: UROLOGY [id number] 09/06/2016 [id number] / / [id number] Procedures Procedure Name Priority Date/Time Associated Diagnosis Comments BASIC METABOLIC PANEL STAT 03/10/2023 8:16 AM EST LIPID SCREEN Routine 10/24/2022 10:38 AM EDT HEMOGLOBIN A1C Routine 10/24/2022 10:38 AM EDT GMED COLONOSCOPY Routine 12/16/2017 8:00 AM EDT ALBUMIN/CREATININE RATIO, RANDOM URINE Routine 01/23/2016 8:57 AM EST Controlled type 2 diabetes mellitus without complication, with long-term current use of insulin (HCC) from Last 3 Months or Most Recently Relevant to Health Maintenance Results * (ABNORMAL) BASIC METABOLIC PANEL (03/10/2023 8:16 AM EST) Sodium 139 136 - 145 mmol/L 03/10/2023 8:47 AM EST [facility] Potassium 2.9(LL) 3.5 - 5.0 mmol/L 03/10/2023 8:47 AM EST [facility] Chloride 100 98 - 107 mmol/L 03/10/2023 8:47 AM EST [facility] Total CO2 26 22 - 29 mmol/L 03/10/2023 8:47 AM EST [facility] Anion Gap 13 7 - 16 mmol/L 03/10/2023 8:47 AM EST [facility] Calcium 9.6 8.6 - 10.4 mg/dL 03/10/2023 8:47 AM EST [facility] Glucose Lvl 120(H) 74 - 100 mg/dL 03/10/2023 8:47 AM EST [facility] BUN 11 6 - 20 mg/dL 03/10/2023 8:47 AM [facility] Creatinine 0.55 0.51 - 1.30 mg/dL 03/10/2023 8:47 AM [facility] eGFR (CKD-EPIcr 2020) 117 >=60 mL/min/1.7 3 m2 03/10/2023 8:47 AM [facility] Comment:Estimated GFR was ca lculated using the CKD-EPIcr (2020) equation refit without race. The equation is recommended by the National Kidney Foundation - [employer] of Nephrology Task Force. Blood VENOUS BLOOD / Unknown Venipuncture / Unknown 03/10/2023 8:16 AM EST 03/10/2023 8:21 AM EST us Tarun Mixon MD CHEMISTRY ORDERABLES Final Resul t [facility] [address] [place] [id number] * HEMOGLOBIN A1C (10/24/2022 10:38 AM EDT) Hgb A1C 5.4 4.2 - 5.6 % 10/24/2022 1:04 PM EDT [facility] [employer] Est. Avg Glucose 108 mg/dL 10/24/2022 1:04 PM EDT [facility] [employer] Blood VENOUS BLOOD / Unknown Venipuncture / Unknown 10/24/2022 10:38 AM EDT 10/24/2022 11:22 AM EDT Narrative [facility] [employer] - 10/24/2022 1:04 PM EDT REFERENCE RANGE: [...] ORDERABLES Final Resul t Performing Organization Address [facility] Co de Phone Number [email or web address] [address] [facility] , [place] [address] * (ABNORMAL) LIPID SCREEN (10/24/2022 10:38 AM EDT) [facility] Cholesterol 198 <200 mg/dL 10/24/2022 12:28 PM EDT [facility] Comment: < 200 Desirable 200 - 239 Borderline High >= 240 High Triglyceride 103 <150 mg/dL 10/24/2022 12:28 PM EDT [facility] Comment: < 150 Normal 150 - 199 Borderline High 200 - 499 High >= 500 Very High HDL 69 >=40 mg/dL 10/24/2022 12:28 PM EDT [facility] Comment: > 60 Optimal 40 - 60 Acceptable < 40 Low LDL Calculated 111(H) <100 mg/dL 10/24/2022 12:28 PM EDT [facility] Comment: < 100 Optimal 100 - 129 Near or above optimal 130 - 159 Borderline High 160 - 189 High >= 190 Very High Non-HDL-C Calculated 129 <=129 mg/dL 10/24/2022 12:28 PM EDT [facility] Comment: <130 Desirable 130-159 Above Desirable 160-189 Borderline High 190-219 High >= 220 Very High Fasting Specimen? No None 023 12:28 PM EDT [facility] Blood VENOUS BLOOD / Unknown Venipuncture / Unknown 10/24/2022 10:38 AM EDT 10/24/2022 11:22 AM EDT us Chester Sky MD CHEMISTRY ORDERABLES Final Resul t Performing Organization Address [facility] Co de Phone Number [facility] [address] [facility] , [place] [address] [facility] [address] [place] [address] * GMED COLONOSCOPY (12/16/2017 8:00 AM EDT) 12/16/2017 8:00 AM EDT Impressions [facility] - 12/16/2017 8:45 AM EDT Normal mucosa in the terminal ileum. Normal mucosa in the whole colon. (Biopsy). Polyp (10 mm) in the proximal sigmoid colon. (Polypectomy). Diverticulosis of the sigmoid colon. Internal hemorrhoids. Plan: Await pathology results This section is an excerpt of the full report. Bhanu Gibbs MD GI PROCEDURE ORDERABLES Final R esult Performing Organization Address [facility] [place] [address] * MICROALBUMIN/CREATININE RATIO URINE (01/23/2016 8:57 AM EST) Urine Albumin 12.7 mg/L [facility] Urine Creatinine 236.2 mg/dL [facility] Ur Albumin/Creat See Footnote 0 - 30 [facility] Comment:Unable to calculate due to value outside linearity. Urine specimen (specimen) STRUCTURE OF URINARY TRACT PROPER / Unknown 01/23/2016 8:57 AM EST 01/23/2016 5:17 PM EST Kandy Fajardo PA-C URINE ORDERABLES E dited Result - Final Performing Organization Address [facility] Co de Phone Number [facility] [address] [place] [address] from Last 3 Months or Most Recently Relevant to Health Maintenance Insurance [facility] [id number] [facility] [place] [id number] [place] [id number] [place] [id number] [employer] WELLCARE OF [address] [facility] OF [address] Advance Directives For more information, please contact: [phone] * Full Code (Latest Code Status on [...] 2:23 PM 12/06/2016 1:04 AM Care Teams Supervisor Specialty Plant Relationship Specialty Start Date End Date Casimiro Mayo MD [facility] [address] [place] [id number] PCP - General Emergency Medicine 10/24/22 Willy Uribe MD [address] [place] [address] Physician Anesthesiology-Pain Medicine 11/16/13
== END 2025-02-24 23:59 | disposition home or self-care (01) ==
LOC: LAB.DROPOF 02-25 09:41
PROVIDERS: PCP Family Medicine; Visit Provider Family Medicine
DX: E78.2 Mixed hyperlipidemia (principal); E53.8 Deficiency of other specified B group vitamins; E11.8 Type 2 diabetes mellitus with unspecified complications; I10 Essential (primary) hypertension
CPT/HCPCS: 80053; 80061; 82607; 83036; 85025